=== PATIENT | female | born 1950 | race Caucasian/White ===

== ENCOUNTER 2022-08-11 22:16 | Inpatient (IN) ==
[~2022-08-11 22:16] MED LIST: RAPID SEQUENCE INDUCTION BAG ONE
[2022-08-11] MEDS ORDERED: STAT IV Infusion **Titration per Protocol STA ×2 (22:23→22:35)
[2022-08-11] MEDS ORDERED: PROPOFOL BOLUS FROM BAG IV PRN (22:23)
[2022-08-11] MEDS ORDERED: MAGNESIUM SULFATE / D5W 1 GM/100 ML BAG IV STA (22:31)
[2022-08-11] MEDS ORDERED: MAGNESIUM SULFATE 1GM / D5W BAG IV ONE (22:31)
--- NOTE | 2022-08-11 22:36 | Emergency Department Note ---
Impression & Plan Cardiopulmonary arrest with successful resuscitation ED Provider Note Name: AIDAN NEGORN Age: 71 Sex: F Arrives Via: Ambulance Informant: EMS, ED Provider: Travis Rowan MD Chief Complaint: Cardiopulmonary arrest Impression: As per impressions above Medical Decision Makin-year-old female with a history of hypertension, bipolar, LEATHA, GERD and prediabetes is following cardiac arrest. Patient with severe shortness of breath followed by arrest. Required cardioversion, epi x3 and amiodarone before ROSC. Intubated by me on arrival. Patient unresponsive GCS 3 with periodic agonal breathing. Initial blood pressure low, heart rate normal. Fluid recess continued. Initial EKG with prolonged QTc. Mag and bicarb were ordered. Blood pressure running low and thus Levophed ordered in addition to the propofol for sedation though not requiring very much of this. Chest x-ray with mildly deep ET tube pulled back 2 cm. No evidence of large pneumothorax or pneumonia appreciated. On arrival critical care at bedside. I discussed the importance of central access with family who agreed. NON LICENSED NUCLEAR EQUIPMENT OPERATOR of critical care team placed a right groin IV with good blood flow. Initial labs with elevated white blood cell count possibly due to reactive acuity. Troponin is also significantly elevated. This could just be due to the ACLS protocol. Other labs with mild LFT elevation thus the CT of the belly when doing other CTs. Initial EKG with a right bundle branch block and prolonged QTc. Repeat EKG a while later shows some nonspecific diffuse ST changes. And a third EKG done shows sinus bradycardia with a prolonged QTc but no findings of ST elevation I did obtain CT of the head, chest with IV contrast for angio, abdomen with IV contrast. These revealed bilateral rib fractures and small pneumothorax consistent with her CPR. There is no evidence of PE. The patient does have some findings of ischemia throughout her gut which I suspect is more secondary to her cardiopulmonary arrest as opposed to being a primary cause of all of this. I did discuss this with the family to make them aware of the findings and the concern for injury to the bowel. Given all of her other issues right now there would not be indication for emergent surgical evaluation measures her current stability is critical. She was empirically given Invanz for possible infection in the setting of acute respiratory failure elevated white blood cell count, though I think that septic shock is far less likely than cardiogenic shock at this time. The significantly elevated lactic acid is consistent with cardiopulmonary arrest. We did have multiple discussions regarding cooling this patient. Arrival a code Arctic had even been called. However given the uncertainty of the initial cause and then the significant electrolyte imbalance after discussion with CCM team plan will be to disposition to ICU first for determination of cooling. Prior Medical Record and Triage/Nursing Notes reviewed by Me External records reviewed including PCP visits. Extensive discussion with family regarding her history as well as proceeding events. Differentials: Cardiac ischemia, aortic dissection, pulmonary embolism, electrolyte abnormality, acidosis, tension pneumothorax, hypothermia, hypovolemia, intracranial event, cardiac tamponade, as well as other pathologies. Vital Signs: reviewed and remarkable for hypotension, hypoxia Interventions: Normal Saline bolus 1 L IV x2, Levophed IV, propofol IV, magnesium IV 2 g, bicarb amp, potassium 20 mEq IV, Invanz 2 g IV This is in addition to the 1 L normal saline bolus given by EMS prior to arrival between start 9:40p and 10:10 PM end. Labs:Reviewed and remarkable for extensive lab abnormalities. CBC, BMP, LFTs, lactate, troponin amongst others. Imagin view chest x-ray interpreted by me reveals intubated patient questionable rib fractures bilaterally. ET tube is a bit deep. CT imaging of the head informally interpreted by me reveals no acute findings. This was confirmed by radiology. CT imaging of the chest with angio as per radiology: Multiple rib fractures and a trace pneumothorax no PE appreciated CT imaging of the abdomen pelvis with IV contrast as per radiology: Pneumatosis consistent with possible ischemic injury EKG #3: As per my interpretation. Indication cardiac arrest. Normal sinus rhythm at 71 bpm with a right bundle branch block and a QTc of 556. Poor basel ine in the no ectopy nor overt ST elevation appreciated but there are diffuse ST abnormalities throughout. There are no previous EKGs for comparison. EKG #2:As per my interpretation. Indication cardiac arrest. Postresuscitation. Sinus bradycardia with a first-degree AV block at 51 bpm and a QTc of 565 and PAC noted. There is not acute ischemia appreciated. When comp ared to EKG from earlier you right bundle branch block has resolved and T wave abnormalities have normalized. Cardiac/Tele Monitoring: Cardiac Monitoring: An Order was placed for continuous cardiac monitoring. The monitor shows a rate of 55 with a sinus jeffy rhythm. Consults:Dr Elvin RAJAN Hospitalist. [facility]. Plan: Disposition:Hospitalization. Condition: Critical History of Present Illness: 71-year-old female arrives for evaluation following a cardiac arrest. Patient was at home with when she developed severe shortness of breath or difficulty breathing. He notes initially it started like a typical panic attack but rapidly worsened. Given severity 911 was called. On EMS arrival patient had collapsed and was unresponsive. She had no pulse. CPR was started, she received epinephrine 3 times, was electrocardioverted, received 150 mg IV amiodarone. EMS reports they were unable to intubate thus a LMA was in place. They note patient had been in a V-fib arrest which resolved with shocking. 1 L normal saline IV prior to arrival. Per family no recent travel, surgeries or any other recent illnesses or other complaints. No reported history of blood clots. No family history of early cardiac . No significant CAD in family that is aware of. Past History:Hypertension, bipolar/anxiety, obstructive sleep apnea, hypertension, pre-diabetes, GERD Home Medications: See Below Allergies: Penicillin, Codeine, Statins Vitals:Blood Pressure: 80/37, Pulse 82, RR 20, T 36.6C, O2 100% on Intubated Physical Exam: GENERAL: Unresponsive, GCS 3. Periodic agonal respirations EYES: No scleral icterus, fixed mid pupils. ENT: Mucous membranes moist, no nasal congestion. NECK: Trachea is midline, no masses, no swelling. RESPIRATORY: Equal chest rise with ventilation, clear bilaterally. CARDIOVASCULAR: RRR no murmurs GASTROINTESTINAL: Abdomen soft. Non-Distended. Bowel sounds. No masses appreciated. EXTREMITIES: Pulses all 4 NEUROLOGIC: Unresponsive, GCS 3. SKIN: Mild erythema on thighs/extremities. No rash, no jaundice. ED Course: Times/Reassessments: Management throughout time in ED along with repeat discussions with family keeping them abreast of findings. Post CAT scan able to get family and room with the patient and reviewing laboratory findings amongst other. Procedures: Endotracheal Intubation Indication: Respiratory Failure The patient was being bagged by respiratory with LMA. Suction, airway equipment, respiratory equipment, and appropriate personnel were prepared prior to the initiation of the procedure. A time out was taken. Patient GCS 3 non response thus intubated without RSI meds. The airway was easily visualized utilizing a #3 glidescope. Copious amount of green food like sputum noted in posterior airway. A 7.5 size ETT tube was placed atraumatically to 24 cm using standard technique. The cuff inflated without signs of malfunction. There were bilateral breath sounds, positive colormetric change, no gastric sounds, a good capnography waveform, and post procedure pulse oximetry was 100%. Post intubation sedation and paralysis was administered using propofol. There were no complications. Critical Care: I have personally spent 90 minutes of critical care time in the direct management of this patient. Acute cardiopulmonary arrest. This was a life/limb threatening event. This 90 minutes is in excess of all separately billable procedures. Travis Rowan MD Past Med/Surg History Medical History (Updated 08/12/22 @ 01:55 by Matthieu Oconnor MD) Bipolar 1 disorder Constipated Fatigue HTN (hypertension) Hyperlipemia IBS (irritable bowel syndrome) Migraine Reflux esophagitis Snoring Family History Father Hypertension Stroke Cancer Alcohol abuse Glaucoma Mother Alcohol abuse Grandmother (Maternal) Cancer Hypertension Social History Smoking Status: Unknown if ever smoked Hx Alcohol Use: Yes Alcohol type: hard liquor Alcohol Intake Frequency: 4 or More x per/Week marital status: Current Living Situation: Spouse Allergies Allergies Allergy/AdvReac Type Severity Reaction Status Date / Time Penicillins Allergy Intermediate Rash Verified 08/11/22 22:59 codeine AdvReac Intermediate Gastrointestinal Verified 08/11/22 22:59 Upset [id number] Reductase AdvReac Intermediate body aches Verified 08/11/22 22:59 Inhibitor Home Meds Home Medications Medication Instructions Recorded Confirmed esomeprazole magnesium 40 mg 40 mg PO DAILY 08/01/21 08/11/22 capsule,delayed release hydrochlorothiazide 25 mg tablet 25 mg PO DAILY 08/01/21 08/11/22 lamotrigine 150 mg tablet 150 mg PO HS 08/01/21 08/11/22 (Lamictal) lorazepam 1 mg tablet 1 mg PO BID PRN Anxiety 08/01/21 08/11/22 metoprolol succinate 200 mg 200 mg PO DAILY 08/01/21 08/11/22 capsule sprinkle, ext. release 24 hr paroxetine HCl 30 mg tablet 60 mg PO QAM 08/01/21 08/11/22 quetiapine 50 mg tablet 50 mg PO HS 08/01/21 08/11/22 ergocalciferol (vitamin D2) 1,250 50,000 unit PO WK 08/11/22 08/11/22 mcg (50,000 unit) capsule (Vitamin D2) olmesartan 5 mg tablet 5 mg PO HS 08/11/22 08/11/22 simvastatin 20 mg tablet 60 mg PO HS 08/11/22 08/11/22 Results & Data (ED) Vital Signs Vital Signs - 24 hr 08/11/22 22:23 08/11/22 22:20 08/11/22 22:25 Pulse Rate 82 77 Pulse Rate from SpO2 Sensor Respiratory Rate 25 H 23 12 Blood Pressure 80/37 L 80/37 L Blood Pressure Mean 51 51 Pulse Oximetry 100 90 Oxygen Delivery Method Ambu-Bag Fraction of Inspired Oxygen 100 Sepsis Recent Fever Within 48 Hours No Sepsis New/Unexplained Change in Mental Status No Sepsis Action Taken by Nursing No Action Required End-Tidal CO2 39 39 08/11/22 22:30 08/11/22 22:35 08/11/22 22:42 Pulse Rate 72 72 85 Pulse Rate from SpO2 Sensor Respiratory Rate 14 14 16 Blood Pressure 79/49 L 63/40 L 83/47 L Blood Pressure Mean 59 47 59 Pulse Oximetry 90 100 100 Oxygen Delivery Method Ambu-Bag Mechanical Vent Mechanical Vent Fraction of Inspired Oxygen Sepsis Recent Fever Within 48 Hours Sepsis New/Unexplained Change in Mental Status Sepsis Action Taken by Nursing End-Tidal CO2 34 32 28 08/11/22 22:46 08/11/22 22:50 08/11/22 22:55 Pulse Rate 80 80 87 Pulse Rate from SpO2 Sensor Respiratory Rate 16 16 15 Blood Pressure 68/52 L 77/37 L 67/50 L Blood Pressure Mean 57 50 55 Pulse Oximetry 100 100 100 Oxygen Delivery Method Mechanical Vent Mechanical Vent Mechanical Vent Fraction of Inspired Oxygen Sepsis Recent Fever Within 48 Hours Sepsis New/Unexplained Change in Mental Status Sepsis Action Taken by Nursing End-Tidal CO2 28 28 08/11/22 23:00 08/11/22 23:05 08/11/22 23:10 Pulse Rate 84 84 82 Pulse Rate from SpO2 Sensor Respiratory Rate 14 14 14 Blood Pressure 69/52 L 92/52 L 65/40 L Blood Pressure Mean 57 65 48 Pulse Oximetry 100 100 100 Oxygen Delivery Method Mechanical Vent Mechanical Vent Mechanical Vent Fraction of Inspired Oxygen Sepsis Recent Fever Within 48 Hours Sepsis New/Unexplained Change in Mental Status Sepsis Action Taken by Nursing End-Tidal CO2 32 36 36 08/11/22 23:15 08/11/22 23:20 08/11/22 23:26 Pulse Rate 70 66 68 Pulse Rate from SpO2 Sensor 70 Respiratory Rate 14 13 22 Blood Pressure 83/34 L 81/46 L 82/38 L Blood Pressure Mean 50 57 52 Pulse Oximetry 100 100 100 Oxygen Delivery Method Mechanical Vent Mechanical Vent Mechanical Vent Fraction of Inspired Oxygen Sepsis Recent Fever Within 48 Hours Sepsis New/Unexplained Change in Mental Status Sepsis Action Taken by Nursing End-Tidal CO2 43 44 41 08/12/22 00:08 08/12/22 00:10 08/12/22 00:15 Pulse Rate 51 L 52 L 52 L Pulse Rate from SpO2 Sensor Respiratory Rate 21 21 21 Blood Pressure 94/47 L 91/51 L 93/46 L Blood Pressure Mean 62 64 61 Pulse Oximetry 99 100 100 Oxygen Delivery Method Mechanical Vent Mechanical Vent Mechanical Vent Fraction of Inspired Oxygen Sepsis Recent Fever Within 48 Hours Sepsis New/Unexplained Change in Mental Status Sepsis Action Taken by Nursing End-Tidal CO2 42 40 40 08/12/22 00:20 08/12/22 00:25 08/12/22 00:30 Pulse Rate 50 L 49 L 49 L Pulse Rate from SpO2 Sensor Respiratory Rate 21 21 21 Blood Pressure 101/55 L 102/56 L 100/57 L Blood Pressure Mean 70 71 71 Pulse Oximetry 100 100 100 Oxygen Delivery Method Mechanical Vent Mechanical Vent Mechanical Vent Fraction of Inspired Oxygen Sepsis Recent Fever Within 48 Hours Sepsis New/Unexplained Change in Mental Status Sepsis Action Taken by Nursing End-Tidal CO2 45 43 36 08/12/22 00:35 08/12/22 00:40 08/12/22 00:45 Pulse Rate 49 L 49 L 48 L Pulse Rate from SpO2 Sensor Respiratory Rate 18 25 H 25 H Blood Pressure 99/58 L 102/58 L 99/57 L Blood Pressure Mean 71 72 71 Pulse Oximetry 100 100 100 Oxygen Delivery Method Mechanical Vent Mechanical Vent Mechanical Vent Fraction of Inspired Oxygen Sepsis Recent Fever Within 48 Hours Sepsis New/Unexplained Change in Mental Status Sepsis Action Taken by Nursing End-Tidal CO2 36 41 42 08/12/22 00:50 08/12/22 00:55 08/12/22 01:00 Pulse Rate 48 L 48 L 48 L Pulse Rate from SpO2 Sensor Respiratory Rate 19 18 20 Blood Pressure 109/60 110/62 117/61 Blood Pressure Mean 76 78 79 Pulse Oximetry 99 99 100 Oxygen Delivery Method Mechanical Vent Mechanical Vent Mechanical Vent Fraction of Inspired Oxygen Sepsis Recent Fever Within 48 Hours Sepsis New/Unexplained Change in Mental Status Sepsis Action Taken by Nursing End-Tidal CO2 42 42 43 Laboratory Data 08/11/22 22:28 08/11/22 22:28 Lab Results 08/11/22 08/11/22 08/11/22 Range/Units 22:27 22:28 22:28 WBC 23.62 H (4.8-10.8) K/ul RBC 4.50 (4.20-5.40) M/uL Hgb 12.9 (12.0-16.0) g/dl POC Hgb (12.0-16.0) g/dl Hct 40.0 (37.0-47.0) % POC Hct (37-47) % MCV 88.9 (80.0-100.0) fL MCH 28.7 (25.0-34.0) pg MCHC 32.3 (32.0-36.0) g/dL RDW Std Deviation 42.1 (36.4-46.3) fL RDW Coeff of Foster 12.9 (11.5-14.5) % Plt Count 341 (130-400) K/uL MPV 8.8 L (9.4-12.4) fL Immature Gran % (Auto) 8.0 % Neut % (Auto) 65.0 % Lymph % (Auto) 21.7 % [place] % (Auto) 3.3 % Eos % (Auto) 1.3 % Baso % (Auto) 0.7 % Neut # (Auto) 15.36 H (1.40-6.50) K/uL Lymph # (Auto) 5.13 H (1.2-3.4) K/uL [place] # (Auto) 0.77 H (0.11-0.59) K/uL Eos # (Auto) 0.31 (0-0.50) K/uL Baso # (Auto) 0.16 (0-0.2) K/uL Immature Gran # (Auto) 1.89 H (0.01-0.20) K/uL PT 11.4 (9.0-12.0) Seconds INR 1.1 (0.9-1.1) POC pH (7.35-7.45) POC pCO2 (35-46) mmHg POC pO2 (80-95) mmHg POC HCO3 (19-24) joslyn/L POC Base Excess (-9-1.8) joslyn/L POC ABG O2 Sat (90-95) % VBG pH (7.36-7.41) VBG pCO2 (38-50) mmHg VBG pO2 mmHg VBG HCO3 mmol/L VBG O2 Saturation % VBG Base Excess mEq/L POC Sodium (135-144) mmol/L Sodium (136-145) mmol/L POC Potassium (3.3-5.0) mmol/L Potassium (3.5-5.1) mmol/L POC Chloride (101-112) mmol/L Chloride (98-107) mmol/L Carbon Dioxide (21-32) mmol/L POC Total CO2 (24-31) mmol/L Anion Gap (3-11) POC Anion Gap (16-25) mmol/L POC BUN (7-18) mg/dl BUN (6-23) mg/dl Creatinine (0.6-1.2) mg/dl POC Creatinine (0.6-1.3) mg/dl Est Cr Clr Drug Dosing Est GFR ( Amer) ml/min Est GFR (Non-Af Amer) ml/min BUN/Creatinine Ratio (10-20) Glucose (70-99(Fasting)) mg/dl POC Glucose 238 H (70-99) mg/dl POC Glucose (other) (70-99) mg/dl Lactate (0.4-2.0) mmol/L Calcium (8.5-10.1) mg/dl POC Ioniz Calcium Bernice (1.12-1.32) mmol/l Magnesium (1.7-2.4) mg/dl Total Bilirubin (0.2-1.0) mg/dl Direct Bilirubin (0-0.2) mg/dl AST (13-39) U/L ALT (7-52) U/L Alkaline Phosphatase (34-104) U/L Troponin I High Sens (0-14) pg/ml Total Protein (6.0-8.3) gm/dl Albumin (3.4-5.0) gm/dl Lipase (11-82) U/L Procalcitonin (0-0.5) ng/ml Adenovirus (PCR) (NotDetected) B. pertussis DNA (PCR) (NotDetected) B.parapertussis DNA PCR (NotDetected) C. pneumoniae DNA (PCR) (NotDetected) Coronavirus OC43 (PCR) (NotDetected) Coronavirus HKU1 (PCR) (NotDetected) Coronavirus 229E (PCR) (NotDetected) SARS-CoV-2 (PCR) (NotDetected) Coronavirus NL63 (PCR) (NotDetected) Human Metapneumovir PCR (NotDetected) Influenza Type A (PCR) (NotDetected) Influenza Type B (PCR) (NotDetected) M. pneumoniae (PCR) (NotDetected) Parainfluenza 1 (PCR) (NotDetected) Parainfluenza 2 (PCR) (NotDetected) Parainfluenza 3 (PCR) (NotDetected) Parainfluenza 4 (PCR) (NotDetected) RSV (PCR) (NotDetected) Entero/Rhino (PCR) (NotDetected) 08/11/22 08/11/22 08/11/22 Range/Units 22:28 22:28 22:28 WBC (4.8-10.8) K/ul RBC (4.20-5.40) M/uL Hgb (12.0-16.0) g/dl POC Hgb (12.0-16.0) g/dl Hct (37.0-47.0) % POC Hct (37-47) % MCV (80.0-100.0) fL MCH (25.0-34.0) pg MCHC (32.0-36.0) g/dL RDW Std Deviation (36.4-46.3) fL RDW Coeff of Foster (11.5-14.5) % Plt Count (130-400) K/uL MPV (9.4-12.4) fL Immature Gran % (Auto) % Neut % (Auto) % Lymph % (Auto) % [place] % (Auto) % Eos % (Auto) % Baso % (Auto) % Neut # (Auto) (1.40-6.50) K/uL Lymph # (Auto) (1.2-3.4) K/uL [place] # (Auto) (0.11-0.59) K/uL Eos # (Auto) (0-0.50) K/uL Baso # (Auto) (0-0.2) K/uL Immature Gran # (Auto) (0.01-0.20) K/uL PT (9.0-12.0) Seconds INR (0.9-1.1) POC pH (7.35-7.45) POC pCO2 (35-46) mmHg POC pO2 (80-95) mmHg POC HCO3 (19-24) joslyn/L POC Base Excess (-9-1.8) joslyn/L POC ABG O2 Sat (90-95) % VBG pH < 7.00 L (7.36-7.41) VBG pCO2 79 H (38-50) mmHg VBG pO2 55 mmHg VBG HCO3 19 mmol/L VBG O2 Saturation 68.4 % VBG Base Excess -13.7 mEq/L POC Sodium (135-144) mmol/L Sodium 134 L (136-145) mmol/L POC Potassium (3.3-5.0) mmol/L Potassium 2.8 L (3.5-5.1) mmol/L POC Chloride (101-112) mmol/L Chloride 92 L (98-107) mmol/L Carbon Dioxide 19 L (21-32) mmol/L POC Total CO2 (24-31) mmol/L Anion Gap 23 H (3-11) POC Anion Gap (16-25) mmol/L POC BUN (7-18) mg/dl BUN 16 (6-23) mg/dl Creatinine 1.20 (0.6-1.2) mg/dl POC Creatinine (0.6-1.3) mg/dl Est Cr Clr Drug Dosing Not Reportable Est GFR ( Amer) 53.0 ml/min Est GFR (Non-Af Amer) 45.8 ml/min BUN/Creatinine Ratio 13.3 (10-20) Glucose 229 H (70-99(Fasting)) mg/dl POC Glucose (70-99) mg/dl POC Glucose (other) (70-99) mg/dl Lactate (0.4-2.0) mmol/L Calcium 8.6 (8.5-10.1) mg/dl POC Ioniz Calcium Bernice (1.12-1.32) mmol/l Magnesium 2.1 (1.7-2.4) mg/dl Total Bilirubin 0.4 (0.2-1.0) mg/dl Direct Bilirubin 0.0 (0-0.2) mg/dl AST 171 H (13-39) U/L ALT 142 H (7-52) U/L Alkaline Phosphatase 113 H (34-104) U/L Troponin I High Sens 119.8 H* (0-14) pg/ml Total Protein 5.9 L (6.0-8.3) gm/dl Albumin 3.5 (3.4-5.0) gm/dl Lipase 46 (11-82) U/L Procalcitonin 0.14 (0-0.5) ng/ml Adenovirus (PCR) (NotDetected) B. pertussis DNA (PCR) (NotDetected) B.parapertussis DNA PCR (NotDetected) C. pneumoniae DNA (PCR) (NotDetected) Coronavirus OC43 (PCR) (NotDetected) Coronavirus HKU1 (PCR) (NotDetected) Coronavirus 229E (PCR) (NotDetected) SARS-CoV-2 (PCR) (NotDetected) Coronavirus NL63 (PCR) (NotDetected) Human Metapneumovir PCR (NotDetected) Influenza Type A (PCR) (NotDetected) Influenza Type B (PCR) (NotDetected) M. pneumoniae (PCR) (NotDetected) Parainfluenza 1 (PCR) (NotDetected) Parainfluenza 2 (PCR) (NotDetected) Parainfluenza 3 (PCR) (NotDetected) Parainfluenza 4 (PCR) (NotDetected) RSV (PCR) (NotDetected) Entero/Rhino (PCR) (NotDetected) 08/11/22 08/11/22 08/11/22 Range/Units 22:28 22:28 22:36 WBC (4.8-10.8) K/ul RBC (4.20-5.40) M/uL Hgb (12.0-16.0) g/dl POC Hgb 13.6 13.3 (12.0-16.0) g/dl Hct (37.0-47.0) % POC Hct 40 39 (37-47) % MCV (80.0-100.0) fL MCH (25.0-34.0) pg MCHC (32.0-36.0) g/dL RDW Std Deviation (36.4-46.3) fL RDW Coeff of Foster (11.5-14.5) % Plt Count (130-400) K/uL MPV (9.4-12.4) fL Immature Gran % (Auto) % Neut % (Auto) % Lymph % (Auto) % [place] % (Auto) % Eos % (Auto) % Baso % (Auto) % Neut # (Auto) (1.40-6.50) K/uL Lymph # (Auto) (1.2-3.4) K/uL [place] # (Auto) (0.11-0.59) K/uL Eos # (Auto) (0-0.50) K/uL Baso # (Auto) (0-0.2) K/uL Immature Gran # (Auto) (0.01-0.20) K/uL PT (9.0-12.0) Seconds INR (0.9-1.1) POC pH 7.15 L* (7.35-7.45) POC pCO2 50 H (35-46) mmHg POC pO2 > 420 H (80-95) mmHg POC HCO3 18 L (19-24) joslyn/L POC Base Excess -11.0 L (-9-1.8) joslyn/L POC ABG O2 Sat 100.0 H (90-95) % VBG pH (7.36-7.41) VBG pCO2 (38-50) mmHg VBG pO2 mmHg VBG HCO3 mmol/L VBG O2 Saturation % VBG Base Excess mEq/L POC Sodium 133 L 131 L (135-144) mmol/L Sodium (136-145) mmol/L POC Potassium 2.8 L 3.0 L (3.3-5.0) mmol/L Potassium (3.5-5.1) mmol/L POC Chloride 93 L (101-112) mmol/L Chloride (98-107) mmol/L Carbon Dioxide (21-32) mmol/L POC Total CO2 24 19 L (24-31) mmol/L Anion Gap (3-11) POC Anion Gap 20.0 (16-25) mmol/L POC BUN 15 (7-18) mg/dl BUN (6-23) mg/dl Creatinine (0.6-1.2) mg/dl POC Creatinine 1.2 (0.6-1.3) mg/dl Est Cr Clr Drug Dosing Est GFR ( Amer) ml/min Est GFR (Non-Af Amer) ml/min BUN/Creatinine Ratio (10-20) Glucose (70-99(Fasting)) mg/dl POC Glucose (70-99) mg/dl POC Glucose (other) 227 H (70-99) mg/dl Lactate 9.6 H* (0.4-2.0) mmol/L Calcium (8.5-10.1) mg/dl POC Ioniz Calcium Bernice 1.10 L (1.12-1.32) mmol/l Magnesium (1.7-2.4) mg/dl Total Bilirubin (0.2-1.0) mg/dl Direct Bilirubin (0-0.2) mg/dl AST (13-39) U/L ALT (7-52) U/L Alkaline Phosphatase (34-104) U/L Troponin I High Sens (0-14) pg/ml Total Protein (6.0-8.3) gm/dl Albumin (3.4-5.0) gm/dl Lipase (11-82) U/L Procalcitonin (0-0.5) ng/ml Adenovirus (PCR) (NotDetected) B. pertussis DNA (PCR) (NotDetected) B.parapertussis DNA PCR (NotDetected) C. pneumoniae DNA (PCR) (NotDetected) Coronavirus OC43 (PCR) (NotDetected) Coronavirus HKU1 (PCR) (NotDetected) Coronavirus 229E (PCR) (NotDetected) SARS-CoV-2 (PCR) (NotDetected) Coronavirus NL63 (PCR) (NotDetected) Human Metapneumovir PCR (NotDetected) Influenza Type A (PCR) (NotDetected) Influenza Type B (PCR) (NotDetected) M. pneumoniae (PCR) (NotDetected) Parainfluenza 1 (PCR) (NotDetected) Parainfluenza 2 (PCR) (NotDetected) Parainfluenza 3 (PCR) (NotDetected) Parainfluenza 4 (PCR) (NotDetected) RSV (PCR) (NotDetected) Entero/Rhino (PCR) (NotDetected) 08/12/22 08/12/22 Range/Units 00:32 00:34 WBC (4.8-10.8) K/ul RBC (4.20-5.40) M/uL Hgb (12.0-16.0) g/dl POC Hgb (12.0-16.0) g/dl Hct (37.0-47.0) % POC Hct (37-47) % MCV (80.0-100.0) fL MCH (25.0-34.0) pg MCHC (32.0-36.0) g/dL RDW Std Deviation (36.4-46.3) fL RDW Coeff of Foster (11.5-14.5) % Plt Count (130-400) K/uL MPV (9.4-12.4) fL Immature Gran % (Auto) % Neut % (Auto) % Lymph % (Auto) % [place] % (Auto) % Eos % (Auto) % Baso % (Auto) % Neut # (Auto) (1.40-6.50) K/uL Lymph # (Auto) (1.2-3.4) K/uL [place] # (Auto) (0.11-0.59) K/uL Eos # (Auto) (0-0.50) K/uL Baso # (Auto) (0-0.2) K/uL Immature Gran # (Auto) (0.01-0.20) K/uL PT (9.0-12.0) Seconds INR (0.9-1.1) POC pH (7.35-7.45) POC pCO2 (35-46) mmHg POC pO2 (80-95) mmHg POC HCO3 (19-24) joslyn/L POC Base Excess (-9-1.8) joslyn/L POC ABG O2 Sat (90-95) % VBG pH (7.36-7.41) VBG pCO2 (38-50) mmHg VBG pO2 mmHg VBG HCO3 mmol/L VBG O2 Saturation % VBG Base Excess mEq/L POC Sodium (135-144) mmol/L Sodium (136-145) mmol/L POC Potassium (3.3-5.0) mmol/L Potassium (3.5-5.1) mmol/L POC Chloride (101-112) mmol/L Chloride (98-107) mmol/L Carbon Dioxide (21-32) mmol/L POC Total CO2 (24-31) mmol/L Anion Gap (3-11) POC Anion Gap (16-25) mmol/L POC BUN (7-18) mg/dl BUN (6-23) mg/dl Creatinine (0.6-1.2) mg/dl POC Creatinine (0.6-1.3) mg/dl Est Cr Clr Drug Dosing Est GFR ( Amer) ml/min Est GFR (Non-Af Amer) ml/min BUN/Creatinine Ratio (10-20) Glucose (70-99(Fasting)) mg/dl POC Glucose (70-99) mg/dl POC Glucose (other) (70-99) mg/dl Lactate 7.3 H* (0.4-2.0) mmol/L Calcium (8.5-10.1) mg/dl POC Ioniz Calcium Bernice (1.12-1.32) mmol/l Magnesium (1.7-2.4) mg/dl Total Bilirubin (0.2-1.0) mg/dl Direct Bilirubin (0-0.2) mg/dl AST (13-39) U/L ALT (7-52) U/L Alkaline Phosphatase (34-104) U/L Troponin I High Sens (0-14) pg/ml Total Protein (6.0-8.3) gm/dl Albumin (3.4-5.0) gm/dl Lipase (11-82) U/L Procalcitonin (0-0.5) ng/ml Adenovirus (PCR) Not Detected (NotDetected) B. pertussis DNA (PCR) Not Detected (NotDetected) B.parapertussis DNA PCR Not Detected (NotDetected) C. pneumoniae DNA (PCR) Not Detected (NotDetected) Coronavirus OC43 (PCR) Not Detected (NotDetected) Coronavirus HKU1 (PCR) Not Detected (NotDetected) Coronavirus 229E (PCR) Not Detected (NotDetected) SARS-CoV-2 (PCR) Not Detected (NotDetected) Coronavirus NL63 (PCR) Not Detected (NotDetected) Human Metapneumovir PCR Not Detected (NotDetected) Influenza Type A (PCR) Not Detected (NotDetected) Influenza Type B (PCR) Not Detected (NotDetected) M. pneumoniae (PCR) Not Detected (NotDetected) Parainfluenza 1 (PCR) Not Detected (NotDetected) Parainfluenza 2 (PCR) Not Detected (NotDetected) Parainfluenza 3 (PCR) Not Detected (NotDetected) Parainfluenza 4 (PCR) Not Detected (NotDetected) RSV (PCR) Not Detected (NotDetected) Entero/Rhino (PCR) Not Detected (NotDetected) Administered Medications Propofol (Diprivan) 1,000 mg in 100 mls @ 12.216 mls/hr IV .Q8H12M JACQUELINE; Protocol Stop: 08/14/22 22:29 Last Titration: 08/11/22 23:36 Dose: 20 mcg/kg/min, 12.2 mls/hr Documented By: Titration: 08/11/22 22:53 Dose: 15 mcg/kg/min, 9.2 mls/hr Documented By: Admin: 08/11/22 22:50 Dose: 10 mcg/kg/min, 6.1 mls/hr Documented By: AN Co-signed By: SURESH Norepinephrine Bitartrate (Levophed/D5w) 4 mg in 250 mls @ 19.088 mls/hr IV .Q13H6M [facility]; Protocol Stop: 09/10/22 22:44 Last Admin: 08/11/22 22:48 Dose: 0.05 mcg/kg/min, 19.1 mls/hr Documented By: AN Co-signed By: SURESH Discontinued Medications Magnesium Sulfate/Dextrose (Magnesium Sulfate / D5w) 1 gm in 100 mls @ 100 mls/hr IV NOW STA Stop: 08/11/22 23:30 Last Infusion: 08/12/22 00:09 Dose: 0 mls/hr Documented By: Admin: 08/11/22 23:09 Dose: 100 mls/hr Documented By: DL Sodium Chloride (Nss 1000ml) 1,000 mls @ 999 mls/hr IV .Q1H1M ONE Stop: 08/12/22 00:07 Last Infusion: 08/12/22 00:08 Dose: 0 mls/hr Documented By: Admin: 08/11/22 23:07 Dose: 999 mls/hr Documented By: DL Sodium Chloride (Nss 1000ml) 1,000 mls @ 999 mls/hr IV .Q1H1M ONE Stop: 08/12/22 00:11 Last Infusion: 08/12/22 00:12 Dose: 0 mls/hr Documented By: Admin: 08/11/22 23:11 Dose: 999 mls/hr Documented By: DL Ertapenem (Invanz) 10 mls @ 2 mls/min IV NOW ONE Stop: 08/11/22 23:27 Last Admin: 08/12/22 01:28 Dose: 2 mls/min Documented By: DL Potassium Chloride (K Ismael / Wtr) 20 meq in 100 mls @ 50 mls/hr IV ONE ONE; Protocol Stop: 08/12/22 01:23 Last Admin: 08/12/22 01:31 Dose: 50 mls/hr Documented By: DL Magnesium Sulfate/Dextrose (Magnesium Sulfate / D5w) 1 gm in 100 mls @ 100 mls/hr IV NOW STA Stop: 08/12/22 01:23 Last Admin: 08/12/22 00:54 Dose: Not Given Documented By: DL Magnesium Sulfate/Dextrose (Magnesium Sulfate 1gm / D5w Bag) Confirm Administered Dose 1 gm IV .STK-MED ONE Stop: 08/11/22 22:32 Last Admin: 08/11/22 22:46 Dose: Not Given Documented By: AN Miscellaneous (Rapid Sequence Induction Bag) Confirm Administered Dose 1 each .ROUTE .STK-MED ONE Stop: 08/11/22 22:09 Last Admin: 08/11/22 23:09 Dose: Not Given Documented By: DL Miscellaneous (Stat Iv Infusion Titration Per Protocol) 1 each N/A NOW STA Stop: 08/11/22 22:24 Last Admin: 08/11/22 22:51 Dose: 1 each Documented By: AN Miscellaneous (Stat Iv Infusion Titration Per Protocol) 1 each N/A NOW STA Stop: 08/11/22 22:36 Last Admin: 08/11/22 22:51 Dose: 1 each Documented By: AN Propofol (Propofol Iv Emulsion 10 Mg/Ml 100 Ml Vial) Confirm Administered Dose 1,000 mg IV .STK-MED ONE Stop: 08/11/22 22:30 Last Admin: 08/11/22 22:50 Dose: Not Given Documented By: AN Sodium Bicarbonate (Sodium Bicarb 8.4% Inj 50 Meq/50 Ml Syr) 50 meq IV NOW STA Stop: 08/11/22 22:56 Last Admin: 08/11/22 23:01 Dose: 50 meq Documented By: DL Sodium Bicarbonate (Sodium Bicarb 8.4% Inj 50 Meq/50 Ml Syr) 50 meq IV NOW STA Stop: 08/12/22 00:24 Last Admin: 08/12/22 00:54 Dose: Not Given Documented By: SHERICE Imaging Data Radiologist's Impression: Chest X-Ray 08/11/22 22:23 SINGLE VIEW CHEST CLINICAL HISTORY: Cardiac arrest. FINDINGS: An AP, portable, supine chest radiograph is obtained. No prior studies are available for comparison at the time of dictation. An endotracheal tube has been placed. The tip approaches the right mainstem bronchus. The heart is enlarged. The pulmonary vasculature is noncongested. Nonspecific interstitial thickening is likely chronic. There is mild elevation of the right hemidiaphragm. No airspace consolidation or large pleural effusion is identified. No pneumothorax is seen. The skeletal structures are osteopenic. There are acute appearing anterior rib fractures. IMPRESSION: 1. An endotracheal tube has been placed. The tip approaches the right mainstem bronchus, and this should be pulled back 1 to 2 cm. 2. Cardiomegaly with no acute cardiopulmonary abnormality identified. 2. There are acute appearing bilateral anterior rib fractures. ACT 112: Negative or not required by law. Electronically signed by: Nahum Jean M.D. 08/11/2022 10:42 PM Chest CTA 08/11/22 22:43 CT ANGIOGRAM OF THE CHEST; CT SCAN OF THE ABDOMEN AND PELVIS WITH IV CONTRAST CLINICAL HISTORY: Cardiac arrest. COMPARISON STUDY: Chest x-ray dated 08/11/2022. TECHNIQUE: Following the IV administration of 114 of Optiray 320, CT angiogram of the chest is performed from the upper abdomen to the thoracic inlet utilizing the pulmonary embolus protocol. Images are reviewed in the axial, sagittal, coronal planes. 3-D MIPS images are created and assessed. Subsequently, CT scan of the abdomen and pelvis was performed from the lung bases to the proximal femora. Images are reviewed in the axial, sagittal, and coronal planes. IV contrast was administered without complication. A dose lowering technique was utilized adhering to the principles of ALARA. The examinations are compromised by motion artifact, as well as by streak artifact from the arms which could not be elevated above the chest or abdomen. CT DOSE: 2876.72 mGy.cm FINDINGS: CHEST: Thyroid: Imaged portions of the thyroid gland are normal in size and attenuation. Thoracic aorta: There is atherosclerotic calcification of the thoracic aorta, which is normal in caliber and demonstrates standard 3-vessel arch anatomy. No dissection is seen. Pulmonary vasculature: The main pulmonary arteries appear dilated suggesting pulmonary artery hypertension. There are no filling defects identified in the main, lobar, or segmental pulmonary arteries to indicate pulmonary embolus. Heart: The heart is enlarged and without pericardial effusion. There are coronary artery calcifications. Lungs and pleural spaces: An endotracheal tube is in place. The tip terminates above the hillary. Secretions are noted in the trachea. There is trace right anterior pneumothorax seen on image #136. There are also tiny foci of extrapleural gas on the right. No left-sided pneumothorax is seen. Intralobular septal thickening suggests fluid overload/congestive failure. No pleural effusion is identified. Airspace opacities in the right upper lobe likely represent atelectasis. There is an 8 mm right middle lobe pulmonary nodule seen on axial image #152. A 4 mm left lower lobe pulmonary nodule is seen on image #160. Diffuse peribronchial thickening is observed. Mediastinum: There is no mediastinal hematoma or lymphadenopathy. Robyn: Clear. Axillae: There is no axillary lymphadenopathy. Bony thorax: The skeletal structures are osteopenic. No lytic or blastic lesions are identified. There are acute right anterior 2nd through 8th rib fractures. The 6th rib fracture is comminuted and the 7th rib fracture is mildly displaced.. There are acute left anterior 3rd through 8th rib fractures. The 6th rib fracture is displaced. No sternal fracture is seen. There is a moderate chronic-appearing superior endplate compression deformity of T12. ABDOMEN AND PELVIS: Liver: The contrast-enhanced liver is normal in size, contour, and attenuation. There is no intrahepatic biliary ductal dilatation. The hepatic veins and portal veins are patent. There is portal venous gas seen throughout the left lobe. Gallbladder: Unremarkable. Spleen: Normal in size and attenuation. Pancreas: Unremarkable. Adrenal glands: Unremarkable. Kidneys: The contrast enhanced kidneys demonstrate cortical atrophy and are without hydronephrosis. The kidneys enhance symmetrically. A 13 mm cyst is noted on the right. Abdominal vasculature: The abdominal aorta is normal in course and caliber not ing moderate to advanced atherosclerotic calcification. A right femoral central venous catheter is in place. The mesenteric vessels are patent. Stomach and bowel: A small hiatal hernia is noted, with infiltration seen around the gastroesophageal junction. There is pneumatosis intestinalis of the cecum and ascending colon with adjacent mesenteric venous gas. Mild wall thickening and mucosal hyperemia is suggested involving the left colon with faint surrounding infiltration. There is also mild wall thickening and hyperemia seen throughout the small bowel loops. No bowel obstruction is seen. The appendix is well-visualized and normal. Peritoneum: No intraperitoneal free air is seen below the diaphragm. There is no abdominal ascites. There is a fat-containing umbilical hernia. Lymphadenopathy: None. Pelvic viscera: The bladder is decompressed and a Serrato catheter and not well evaluated. The uterus and adnexa are normal as imaged. There is a fat-containing left groin hernia. Skeletal structures: The skeletal structures are osteopenic. There is mild lumbosacral spondylosis. Lumbosacral spine, bony pelvis, and proximal femora appear intact. No lytic or blastic lesions are seen. Sclerotic change is noted in the pubic symphysis. IMPRESSION: 1. There is no evidence of pulmonary embolus in the main, lobar, or segmental pulmonary arteries. 2. Cardiomegaly with evidence of fluid overload/congestive change. 3. There are numerous acute bilateral anterior rib fractures as above, a few of which are comminuted and displaced. 4. There is trace right anterior pneumothorax. 5. Airspace opacities in the right upper lobe likely represent atelectasis. 6. There is evidence of a nonspecific colitis of the left colon which may be ischemic. 7. There is pneumatosis intestinalis of the cecum and ascending colon, with concomitant mesenteric venous and portal venous gas. Ischemic bowel is not excluded. 8. Mild wall thickening and mucosal hyperemia is also suggested involving small bowel loops. This may be related to hypovolemia/hypotension. 9. No intraperitoneal free air is identified. 10. There is nonspecific infiltration identified around the gastroesophageal j unction. 11 There are at least 2 pulmonary nodules which measure up to 8 mm. These can be followed as per the Fleischner criteria. See below. 12. Additional findings as above. Please refer to below summary of Fleischner criteria recommendations for follow- up of incidental CT nodules (Alfredo Resendiz, Guidelines for management of small pulmonary nodules detected on CT scans: A statement from the Fleischner Society, Radiology 237: [phone].) SOLID NODULES Solitary nodule size: <6 mm * low risk patients: no follow-up needed * high risk patients: optional CT at 12 months Solitary nodule size: 6-8 mm * low risk patients: follow-up at 6-12 months, then consider further follow-up at 18-24 months * high risk patients: initial follow-up CT at 6-12 months and then at 18-24 months if no change Solitary nodule size: >8 mm * either low or high risk patients - consider follow-up CT at 3 months, and/or CT-PET, and/or biopsy Multiple nodules size: <6 mm * low risk patients: no routine follow-up * high risk patients: optional CT at 12 months Multiple nodules size: 6-8 mm * low risk patients: follow-up at 3-6 months, then consider further follow-up at 18-24 months * high risk patients: follow-up at 3-6 months, then at 18-24 months if no change Multiple nodules size: >8 mm * low risk patients: follow-up at 3-6 months, then consider further follow-up at 18-24 months * high risk patients: follow-up at 3-6 months, then at 18-24 months if no change Note: newly detected indeterminate nodule in persons 35 years of age or older. * low risk patients: minimal or absent history of smoking and/or other known risk factors * high risk patients: history of smoking or of other known risk factors (e.g. first degree relative with lung cancer, or exposure to asbestos, radon, uranium) * if a nodule up to 8 mm is partly solid or is ground glass further follow-up is required after 24 months to exclude possible slow growing adenocarcinoma (FARZAD) SUBSOLID NODULES Solitary pure ground-glass nodule * nodule size <6 mm - no CT follow-up required * nodule size >=6 mm - follow-up CT at 6-12 months, then every 2 years until 5 years Solitary part-solid nodule * nodule size <6 mm - no CT follow-up required * nodule size >=6 mm - follow-up CT at 3-6 months. If unchanged, and solid component remains <6 mm, then annual follow-up for 5 years Multiple subsolid nodules * nodule size <6 mm - follow-up CT at 3-6 months, consider further follow-up at 2 and 4 years if stable * nodule size >=6 mm - follow-up CT at 3-6 months, subsequent management based on the most suspicious nodule(s) ACT 112: Negative or not required by law. Electronically signed by: Nahum Jean M.D. 08/12/2022 12:[address] 08/11/22 22:43 CT SCAN OF THE BRAIN WITHOUT IV CONTRAST CLINICAL HISTORY: Cardiac arrest. COMPARISON STUDY: No priors. TECHNIQUE: Unenhanced axial CT scan of the brain is performed from the vertex to the skull base. A dose lowering technique was utilized adhering to the principles of ALARA. FINDINGS: An endotracheal tube is noted on the mechanical detailer tomogram. Brain parenchyma: There is age-related involutional change noting mild to moderate subcortical and periventricular microangiopathic disease. There is no hemorrhage, mass effect, or evidence of acute territorial ischemia by CT criteria. Luna-white matter differentiation is preserved. No extra-axial fluid collection is seen. Ventricles, sulci, cisterns: Prominent secondary to involutional change. Intracranial vasculature: There is atherosclerotic calcification of the cavernous carotid and vertebral arteries. Calvarium: Unremarkable. Sinuses and mastoids: There is complete opacification of the left maxillary antrum, left ethmoid sinuses, the frontal sinus, and the left sphenoid sinuses. Thickening and sclerosis of the left sinus stovall indicates chronicity. Mild mucosal thickening is noted in the right maxillary antrum, and there is mild mucosal thickening within the right frontal, sphenoidal, and ethmoid sinuses. The mastoid air cells are well pneumatized. Secretions fill the nasopharynx. Orbits: The bony orbits are grossly intact. There are bilateral ocular lens implants. IMPRESSION: 1. There is no hemorrhage, mass effect, or evidence of acute territorial ischemia by CT criteria. 2. Pansinus disease as above. ACT 112: Negative or not required by law. Electronically signed by: Nahum Jean M.D. 08/12/2022 12:07 AM Abdomen/Pelvis CT 08/11/22 23:11 CT ANGIOGRAM OF THE CHEST; CT SCAN OF THE ABDOMEN AND PELVIS WITH IV CONTRAST CLINICAL HISTORY: Cardiac arrest. COMPARISON STUDY: Chest x-ray dated 08/11/2022. TECHNIQUE: Following the IV administration of 114 of Optiray 320, CT angiogram of the chest is performed from the upper abdomen to the thoracic inlet utilizing the pulmonary embolus protocol. Images are reviewed in the axial, sagittal, coronal planes. 3-D MIPS images are created and assessed. Subsequently, CT scan of the abdomen and pelvis was performed from the lung bases to the proximal femora. Images are reviewed in the axial, sagittal, and coronal planes. IV contrast was administered without complication. A dose lowering technique was utilized adhering to the principles of ALARA. The examinations are compromised by motion artifact, as well as by streak artifact from the arms which could not be elevated above the chest or abdomen. CT DOSE: 2876.72 mGy.cm FINDINGS: CHEST: Thyroid: Imaged portions of the thyroid gland are normal in size and a ttenuation. Thoracic aorta: There is atherosclerotic calcification of the thoracic aorta, which is normal in caliber and demonstrates standard 3-vessel arch anatomy. No dissection is seen. Pulmonary vasculature: The main pulmonary arteries appear dilated suggesting pulmonary artery hypertension. There are no filling defects identified in the main, lobar, or segmental pulmonary arteries to indicate pulmonary embolus. Heart: The heart is enlarged and without pericardial effusion. There are coronary artery calcifications. Lungs and pleural spaces: An endotracheal tube is in place. The tip terminates above the hillary. Secretions are noted in the trachea. There is trace right anterior pneumothorax seen on image #136. There are also tiny foci of extrapleural gas on the right. No left-sided pneumothorax is seen. Intralobular septal thickening suggests fluid overload/congestive failure. No pleural effusion is identified. Airspace opacities in the right upper lobe likely represent atelectasis. There is an 8 mm right middle lobe pulmonary nodule seen on axial image #152. A 4 mm left lower lobe pulmonary nodule is seen on image #160. Diffuse peribronchial thickening is observed. Mediastinum: There is no mediastinal hematoma or lymphadenopathy. Robyn: Clear. Axillae: There is no axillary lymphadenopathy. Bony thorax: The skeletal structures are osteopenic. No lytic or blastic lesions are identified. There are acute right anterior 2nd through 8th rib fractures. The 6th rib fracture is comminuted and the 7th rib fracture is mildly displaced.. There are acute left anterior 3rd through 8th rib fractures. The 6th rib fracture is displaced. No sternal fracture is seen. There is a moderate chronic-appearing superior endplate compression deformity of T12. ABDOMEN AND PELVIS: Liver: The contrast-enhanced liver is normal in size, contour, and attenuation. There is no intrahepatic biliary ductal dilatation. The hepatic veins and portal veins are patent. There is portal venous gas seen throughout the left lobe. Gallbladder: Unremarkable. Spleen: Normal in size and attenuation. Pancreas: Unremarkable. Adrenal glands: Unremarkable. Kidneys: The contrast enhanced kidneys demonstrate cortical atrophy and are without hydronephrosis. The kidneys enhance symmetrically. A 13 mm cyst is noted on the right. Abdominal vasculature: The abdominal aorta is normal in course and caliber noting moderate to advanced atherosclerotic calcification. A right femoral central venous catheter is in place. The mesenteric vessels are patent. Stomach and bowel: A small hiatal hernia is noted, with infiltration seen around the gastroesophageal junction. There is pneumatosis intestinalis of the cecum and ascending colon with adjacent mesenteric venous gas. Mild wall thickening and mucosal hyperemia is suggested involving the left colon with faint surrounding infiltration. There is also mild wall thickening and hyperemia seen throughout the small bowel loops. No bowel obstruction is seen. The appendix is well-visualized and normal. Peritoneum: No intraperitoneal free air is seen below the diaphragm. There is no abdominal ascites. There is a fat-containing umbilical hernia. Lymphadenopathy: None. Pelvic viscera: The bladder is decompressed and a Serrato catheter and not well evaluated. The uterus and adnexa are normal as imaged. There is a fat-containing left groin hernia. Skeletal structures: The skeletal structures are osteopenic. There is mild lumbosacral spondylosis. Lumbosacral spine, bony pelvis, and proximal femora appear intact. No lytic or blastic lesions are seen. Sclerotic change is noted in the pubic symphysis. IMPRESSION: 1. There is no evidence of pulmonary embolus in the main, lobar, or segmental pulmonary arteries. 2. Cardiomegaly with evidence of fluid overload/congestive change. 3. There are numerous acute bilateral anterior rib fractures as above, a few of which are comminuted and displaced. 4. There is trace right anterior pneumothorax. 5. Airspace opacities in the right upper lobe likely represent atelectasis. 6. There is evidence of a nonspecific colitis of the left colon which may be ischemic. 7. There is pneumatosis intestinalis of the cecum and ascending colon, with concomitant mesenteric venous and portal venous gas. Ischemic bowel is not excluded. 8. Mild wall thickening and mucosal hyperemia is also suggested involving small bowel loops. This may be related to hypovolemia/hypotension. 9. No intraperitoneal free air is identified. 10. There is nonspecific infiltration identified around the gastroesophageal junction. 11 There are at least 2 pulmonary nodules which measure up to 8 mm. These can be followed as per the Fleischner criteria. See below. 12. Additional findings as above. Please refer to below summary of Fleischner criteria recommendations for follow- up of incidental CT nodules (Alfredo Resendiz, Guidelines for management of small pulmonary nodules detected on CT scans: A statement from the Fleischner Society, Radiology 237: [phone].) SOLID NODULES Solitary nodule size: <6 mm * low risk patients: no follow-up needed * high risk patients: optional CT at 12 months Solitary nodule size: 6-8 mm * low risk patients: follow-up at 6-12 months, then consider further follow-up at 18-24 months * high risk patients: initial follow-up CT at 6-12 months and then at 18-24 months if no change Solitary nodule size: >8 mm * either low or high risk patients - consider follow-up CT at 3 months, and/or CT-PET, and/or biopsy Multiple nodules size: <6 mm * low risk patients: no routine follow-up * high risk patients: optional CT at 12 months Multiple nodules size: 6-8 mm * low risk patients: follow-up at 3-6 months, then consider further follow-up at 18-24 months * high risk patients: follow-up at 3-6 months, then at 18-24 months if no change Multiple nodules size: >8 mm * low risk patients: follow-up at 3-6 months, then consider further follow-up at 18-24 months * high risk patients: follow-up at 3-6 months, then at 18-24 months if no change Note: newly detected indeterminate nodule in persons 35 years of age or older. * low risk patients: minimal or absent history of smoking and/or other known risk factors * high risk patients: history of smoking or of other known risk factors (e.g. first degree relative with lung cancer, or exposure to asbestos, radon, uranium) * if a nodule up to 8 mm is partly solid or is ground glass further follow-up is required after 24 months to exclude possible slow growing adenocarcinoma (FARZAD) SUBSOLID NODULES Solitary pure ground-glass nodule * nodule size <6 mm - no CT follow-up required * nodule size >=6 mm - follow-up CT at 6-12 months, then every 2 years until 5 years Solitary part-solid nodule * nodule size <6 mm - no CT follow-up required * nodule size >=6 mm - follow-up CT at 3-6 months. If unchanged, and solid component remains <6 mm, then annual follow-up for 5 years Multiple subsolid nodules * nodule size <6 mm - follow-up CT at 3-6 months, consider further follow-up at 2 and 4 years if stable * nodule size >=6 mm - follow-up CT at 3-6 months, subsequent management based on the most suspicious nodule(s) ACT 112: Negative or not required by law. Electronically signed by: Nahum Jean M.D. 08/12/2022 12:43 AM Discharge Plan Visit Data Chief Complaint: Respiratory Arrest Stated Complaint: POST CARDIAC ARREST ED Provider: Travis Rowan Discharge Problem: Cardiopulmonary arrest with successful resuscitation Forms Stand Alone Forms: [facility] [employer] Prescriptions Prescriptions: No Action esomeprazole magnesium 40 mg capsule,delayed release(DR/EC) 40 mg PO DAILY hydrochlorothiazide 25 mg tablet 25 mg PO DAILY lamotrigine [Lamictal] 150 mg tablet 150 mg PO HS lorazepam 1 mg tablet 1 mg PO BID PRN (Reason: Anxiety) metoprolol succinate 200 mg capsule,sprinkle,ER 24hr 200 mg PO DAILY paroxetine HCl 30 mg tablet 60 mg PO QAM quetiapine 50 mg tablet 50 mg PO HS simvastatin 20 mg tablet 60 mg PO HS ergocalciferol (vitamin D2) [Vitamin D2] 1,250 mcg (50,000 unit) capsule 50,000 unit PO WK olmesartan 5 mg tablet 5 mg PO HS Referrals Referrals: Evelyn He CRNP [Primary Care Provider] -
[2022-08-11 22:40] LABS: iSTAT Creatinine 1.2 mg/dl (0.6-1.3); iSTAT Hemoglobin 13.6 g/dl (12.0-16.0); iSTAT Ionized Calcium 1.1 mmol/l (1.12-1.32); iSTAT Potassium 2.8 mmol/L (3.3-5.0)
[2022-08-11 22:41] LABS: Hemoglobin 12.9 g/dl (12.0-16.0); Mean Corpuscular Hemoglobin 28.7 pg (25.0-34.0); Mean Corpuscular Hgb Conc 32.3 g/dL (32.0-36.0); Mean Corpuscular Volume 88.9 fL (80.0-100.0); Mean Platelet Volume 8.8 fL (9.4-12.4); Platelet Count 341 K/uL (130-400); RDW Coefficient of Variation 12.9 % (11.5-14.5); RDW Standard Deviation 42.1 fL (36.4-46.3); White Blood Count 23.62 K/ul (4.8-10.8)
[2022-08-11 22:42] LABS: Base Excess VBG -13.7 mEq/L; HCO3 VBG 19 mmol/L; Oxygen Saturation VBG 68.4 %; PCO2 VBG 79 mmHg (38-50); PO2 VBG 55 mmHg; pH VBG < 7.00 (7.36-7.41)
--- NOTE | 2022-08-11 22:44 | XRay Report ---
SINGLE VIEW CHEST CLINICAL HISTORY: Cardiac arrest. FINDINGS: An AP, portable, supine chest radiograph is obtained. No prior studies are available for co mparison at the time of dictation. An endotracheal tube has been placed. The tip approaches the right mainstem bronchus. The heart is enlarged. The pulmonary vasculature is noncongested. Nonspecific int erstitial thickening is likely chronic. There is mild elevation of the right hemidiaphragm. No airspa ce consolidation or large pleural effusion is identified. No pneumothorax is seen. The skeletal struc tures are osteopenic. There are acute appearing anterior rib fractures. IMPRESSION: 1. An endotracheal tube has been placed. The tip approaches the right mainstem bronchus, and this gomez uld be pulled back 1 to 2 cm. 2. Cardiomegaly with no acute cardiopulmonary abnormality identified. 2. There are acute appearing bilateral anterior rib fractures. ACT 112: Negative or not required by law. Electronically signed by: Nahum Jean M.D. 08/11/2022 10:42 PM
[2022-08-11] MEDS: PROPOFOL IV EMULSION 10 MG/ML 100 ML VIAL IV ONE ×2 (22:47→22:50)
[2022-08-11] MEDS: NOREPINEPHRINE/D5W 4 MG/250 ML PLCT IV SCH (22:48)
[2022-08-11] MEDS: propofoL 1,000 MG/100 ML VIAL IV SCH (22:50)
[2022-08-11 22:51] LABS: INR 1.1 (0.9-1.1); Prothrombin Time 11.4 Seconds (9.0-12.0)
[2022-08-11 22:52] LABS: iSTAT Arterial Blood Gas HCO3 18 meg/L (19-24); iSTAT Arterial Blood Gas pCO2 50 mmHg (35-46); iSTAT Arterial Blood Gas pH 7.15 (7.35-7.45); iSTAT Arterial Blood Gas pO2 > 420 mmHg (80-95); iSTAT Carbon Dioxide 19 mmol/L (24-31); iSTAT Hematocrit 39 % (37-47); iSTAT Hemoglobin 13.3 g/dl (12.0-16.0); iSTAT Sodium 131 mmol/L (135-144)
[2022-08-11] MEDS ORDERED: SODIUM BICARB 8.4% INJ 50 MEQ/50 ML SYR IV STA (22:55)
[2022-08-11 23:02] LABS: Alanine Aminotransferase 142 U/L (7-52); Albumin Level 3.5 gm/dl (3.4-5.0); Alkaline Phosphatase 113 U/L (34-104); Anion Gap 23 (3-11); Aspartate Aminotransferase 171 U/L (13-39); BUN Creatinine Ratio 13.3 (10-20); Bilirubin,Total 0.4 mg/dl (0.2-1.0); Blood Urea Nitrogen 16 mg/dl (6-23); Calcium 8.6 mg/dl (8.5-10.1); Carbon Dioxide 19 mmol/L (21-32); Chloride 92 mmol/L (98-107); Est GFR (Non-African American) 45.8 ml/min; Glucose 229 mg/dl (70-99(Fasting)); Lipase 46 U/L (11-82); Magnesium 2.1 mg/dl (1.7-2.4); Potassium 2.8 mmol/L (3.5-5.1); Sodium 134 mmol/L (136-145); Total Protein 5.9 gm/dl (6.0-8.3)
[2022-08-11] MEDS ORDERED: SODIUM CHLORIDE 0.9% 1000ML 1,000 ML IV ONE ×2 (23:07→23:11)
[2022-08-11 23:11] LABS: Troponin I High Sensitivity 119.8 pg/ml (0-14)
--- NOTE | 2022-08-11 23:17 | Critical Care Consultation ---
Date of Consultation August 11, 2022 Assessment & Plan (1) Cardiopulmonary arrest with successful resuscitation: (2) Nocturnal hypoxemia: (3) Moderate obstructive sleep apnea: (4) Bipolar 1 disorder: (5) HTN (hypertension): (6) Hyperlipemia: (7) Shock: Plan Reason Critically Ill: Patient s/p Cardiac Arrest that appears to have been precipitated by respiratory arrest. Patient arrives to ICU with electrolyte derrangements, lactic acidosis, respiratory/metabolic acidosis intubated and sedated. Arrival to ICU at 0240 Continue supportive care, follow neurological prognostication, and organ dysfunction. Neuro - Seizure like activity, Sedated for Mechanical Ventilation, concern for anoxic injury, Bipolar/Anxiety CAM ICU: Negative Patient arrived without spontaneous movement and agonal breathing in the EMD- have not appreciated any purposeful movement at this time and no localization/withdrawal to pain GCS 3T Holding sedation for neurological exam- patient eyes will open, upward gaze, facial twitching of nose and mouth and forceful biting of ett as well as jerking of arms and legs - concern for seizure- will sedate back with propofol, bolus of versed and versed infusion and wean down if able- Add Keppra if unable to break- EEG in am/ Nuerology consultation Neuroprognostication in 48 hours if no improvement Goal temperature 34-36 repeat electrolytes- Patient is at this temperature without intervention Continue Seroquel as able, Lamotrigine as able Cardiac - S/P Cardiac Arrest with ROSC, Bradycardia, Shock, Elevated HScTNI Shock undifferentiated at this time but likely component of sepsis/hypovolemia and can not rule out cardiogenic at this time VFIB arrest appears to have been precluded by respiratory distress- no history of CAD reported by family Troponin elevation likely demand at this time following resuscitation and defibrillation- ECG improved following improvement in acidosis and perfusion- no STEMI on ECG Continue Levophed for MAPS >65 Bradycardia - possibly related to sedation and hypothermia- eval while off sedation and while warming Hold ARB and BB 2D ECHO in AM Respiratory - Hypercarbic respiratory failure requiring intubation and mechanical ventilation, Rib Fractures ARDSnet ventilatory strategy low PEEP high FIO2 Acidosis improving and CO2 normalizing Continue supportive care eval small pthx with AM CXR daily spont trials as able GI - Pneumatosis possible ischemic bowel, NON- Specific enceliitis, Transaminitis NPO Lactate is improving with resuscitation- abdomen is soft, OGT placed to LIWS - Appreciate General Surgery consultation Non-specific enteritis- continue with volume resusc follow- no risk factors reported for c-diff Elevated Liver enzymes in setting of septic shock and hypoperfusion - INR normal RENAL/LYTES - Respiratory and Metabolic Acidosis, Lactic Acidosis, Hypokalemia, - Continue with volume resuscitation and Vasopressor to maintain MAP >65 and UO > 30ml/kg - Replete K- follow with hypothermia - Lactic acidosis improving - NO acute needs Serrato to gravity ENDO - Hyperglycemia without dx of diabetes ICU hyperglycemic protocol HEME - No acute needs ID - Sepsis= source abdomen/sinusitis source sinus, GI - Continue broad spectrum abx - follow cultures LINES/IV ACCESS - PIV, Right Femoral Central Line, Arterial line, ETT, OGT, Serrato Continue use of these lines DVT PROPHYLAXIS - SCDS, Heparin DISPO: ICU while intubated and sedate I have personally spent 55 minutes of critical care time in the direct management of this patient. This is a life/limb threatening event. This includes time spent evaluating patient, direct bedside care, chart review, placing orders, interpretation of diagnostic studies, discussion with consultants, patient, and family members, as well as other required patient management activities. This time is exclusive of all separately billable procedures,and in addition to any other critical care service time. Thank you for allowing us to participate in the care of this patient. Please refer to my attending physician's documentation for any further recommendations. History of Present Illness Reason for Consultation: Respiratory/Cardiac Arrest Requesting Physician: Travis Rowan Attending Physician: Dr. Oconnor History of Present Illness 71 YOF with medical history of HTN, LEATHA, Obesity, DM, Bipolar disorder. Patient arrived via EMS after called for dyspnea. The patient progressed to reported cardiac arrest reported as VFIB requiring Defibrilation, epi x3 and amiodarone, and airway managed with LMA- remains with GCS 3 on arrival with agonal breathing and was intubated by EMD Dr. Acosta. She lost peripheral IV so femoral central line was placed under sterile conditions by myself at bedside in EMD. PH on arrival PH <7.00, CO2 50, Pa02 >420, HCO3 18. HCO3 administered and fluid bolus administered. She was started on Levophed. Routine labs were obtained as well as blood cultures. Patient labs result with hypokalemia, gap of 23, lactate of 9.6, glucose of 277 and HScTNI of 119.8, and PCT of 0.14, note d elevation of LFTS and ALKpo4 with normal INR. ECG in EMD with RBB without STEMI- no comparison. Patient had CT head completed with perisinus disease and no acute findings, CTA of the chest completed as well as CT abdomen and pelvis. Noted CT chest without PE, small PTHX, CT abd/pelvis noted with pneumatosis of intestinalis and venous portal gas high suspicion of ischemic bowel with hypotensive eppisode as well as non-specific colitis. arrived at bedside and stated patient ate dinner this afternoon and went to her room, she called for him later saying she was having difficulty breathing and was very anxious. Denies her complaining of any chest pain or grabbing her chest, does endorse her wheezing and coughing over the past 2 weeks that occurred with any activity as she is usually very sedentary. Her ECG has improved following her arrival and awaiting repeat labs. Recommend GS consultation. With her hypokalemia will maintain 34-36 degrees patient has been hypothermic since arrival at 32. Allergies Allergy/AdvReac Type Severity Reaction Status Date / Time Penicillins Allergy Intermediate Rash Verified 08/11/22 22:59 codeine AdvReac Intermediate Gastrointestinal Verified 08/11/22 22:59 Upset [id number] Reductase AdvReac Intermediate body aches Verified 08/11/22 22:59 Inhibitor Home Medications Medication Instructions Recorded Confirmed Type esomeprazole magnesium 40 mg 40 mg PO DAILY 08/01/21 08/11/22 History capsule,delayed release hydrochlorothiazide 25 mg tablet 25 mg PO DAILY 08/01/21 08/11/22 History lamotrigine 150 mg tablet 150 mg PO HS 08/01/21 08/11/22 History (Lamictal) lorazepam 1 mg tablet 1 mg PO BID PRN Anxiety 08/01/21 08/11/22 History metoprolol succinate 200 mg 200 mg PO DAILY 08/01/21 08/11/22 History capsule sprinkle, ext. release 24 hr paroxetine HCl 30 mg tablet 60 mg PO QAM 08/01/21 08/11/22 History quetiapine 50 mg tablet 50 mg PO HS 08/01/21 08/11/22 History ergocalciferol (vitamin D2) 1,250 50,000 unit PO WK 08/11/22 08/11/22 History mcg (50,000 unit) capsule (Vitamin D2) olmesartan 5 mg tablet 5 mg PO HS 08/11/22 08/11/22 History simvastatin 20 mg tablet 60 mg PO HS 08/11/22 08/11/22 History Patient History Medical History Bipolar 1 disorder Constipated Fatigue HTN (hypertension) Hyperlipemia IBS (irritable bowel syndrome) Migraine Reflux esophagitis Snoring Family History Father Hypertension Stroke Cancer skin cancer Alcohol abuse Glaucoma Mother Alcohol abuse Grandmother (Maternal) Cancer Hypertension Social History Smoking Status: Unknown if ever smoked Hx Alcohol Use: Yes Alcohol type: hard liquor Alcohol Intake Frequency: 4 or More x per/Week marital status: Current Living Situation: Spouse Review of Systems Review of Systems: REVIEW OF SYSTEMS: Unable to complete secondary to intubation and sedation Physical Exam Physical Exam: PHYSICAL EXAM: General: non responsive, is bucking the ventilator and overbreathing vent Head: Normocephalic, atraumatic ENT: PERRLA- sluggish, mucous membranes dry Neuro: AOx0, intubated and sedated, pupils slugish, No localization to pain or withdrwal, facial twitching eye opening with upward gaze, and jerking of arms with sedation off Chest: equal rise and fall of the chest, decreased breathsounds on left- ETT adjusted Cardiac: Regular rate and rhythm, telemetry reviewed- NSR, skin warm dry, cap refill <3 seconds, peripheral pulses +2 no JVD, no murmur, no edema GI: NABS x 4 quadrants, soft, nontender to palpation, no rebound, guarding or tenderness : Serrato to gravity Extremities: Normal inspection, non elevated flat patches of erythema on arms and legs Results & Data Results & Data ([facility]) Vital Signs (Past 12 Hours) Vital Signs Pulse Resp BP 08/11/22 22:23 82 25 H 80/37 L Laboratory Results Abnormal lab results 08/11/22 08/11/22 08/11/22 Range/Units 22:27 22:28 22:28 WBC 23.62 H (4.8-10.8) K/ul MPV 8.8 L (9.4-12.4) fL Neut # (Auto) 15.36 H (1.40-6.50) K/uL Lymph # (Auto) 5.13 H (1.2-3.4) K/uL [place] # (Auto) 0.77 H (0.11-0.59) K/uL Immature Gran # (Auto) 1.89 H (0.01-0.20) K/uL POC pH (7.35-7.45) POC pCO2 (35-46) mmHg POC pO2 (80-95) mmHg POC HCO3 (19-24) joslyn/L POC Total CO2 (24-31) mmol/L POC Base Excess (-9-1.8) joslyn/L POC ABG O2 Sat (90-95) % VBG pH (7.36-7.41) VBG pCO2 (38-50) mmHg POC Sodium (135-144) mmol/L Sodium 134 L (136-145) mmol/L POC Potassium (3.3-5.0) mmol/L Potassium 2.8 L (3.5-5.1) mmol/L POC Chloride (101-112) mmol/L Chloride 92 L (98-107) mmol/L Carbon Dioxide 19 L (21-32) mmol/L Anion Gap 23 H (3-11) Glucose 229 H (70-99(Fasting)) mg/dl POC Glucose 238 H (70-99) mg/dl POC Glucose (other) (70-99) mg/dl Lactate (0.4-2.0) mmol/L POC Ioniz Calcium Bernice (1.12-1.32) mmol/l AST 171 H (13-39) U/L ALT 142 H (7-52) U/L Alkaline Phosphatase 113 H (34-104) U/L Troponin I High Sens 119.8 H* (0-14) pg/ml Total Protein 5.9 L (6.0-8.3) gm/dl 08/11/22 08/11/22 08/11/22 Range/Units 22:28 22:28 22:28 WBC (4.8-10.8) K/ul MPV (9.4-12.4) fL Neut # (Auto) (1.40-6.50) K/uL Lymph # (Auto) (1.2-3.4) K/uL [place] # (Auto) (0.11-0.59) K/uL Immature Gran # (Auto) (0.01-0.20) K/uL POC pH (7.35-7.45) POC pCO2 (35-46) mmHg POC pO2 (80-95) mmHg POC HCO3 (19-24) joslyn/L POC Total CO2 (24-31) mmol/L POC Base Excess (-9-1.8) joslyn/L POC ABG O2 Sat (90-95) % VBG pH < 7.00 L (7.36-7.41) VBG pCO2 79 H (38-50) mmHg POC Sodium 133 L (135-144) mmol/L Sodium (136-145) mmol/L POC Potassium 2.8 L (3.3-5.0) mmol/L Potassium (3.5-5.1) mmol/L POC Chloride 93 L (101-112) mmol/L Chloride (98-107) mmol/L Carbon Dioxide (21-32) mmol/L Anion Gap (3-11) Glucose (70-99(Fasting)) mg/dl POC Glucose (70-99) mg/dl POC Glucose (other) 227 H (70-99) mg/dl Lactate 9.6 H* (0.4-2.0) mmol/L POC Ioniz Calcium Bernice 1.10 L (1.12-1.32) mmol/l AST (13-39) U/L ALT (7-52) U/L Alkaline Phosphatase (34-104) U/L Troponin I High Sens (0-14) pg/ml Total Protein (6.0-8.3) gm/dl 08/11/22 Range/Units 22:36 WBC (4.8-10.8) K/ul MPV (9.4-12.4) fL Neut # (Auto) (1.40-6.50) K/uL Lymph # (Auto) (1.2-3.4) K/uL [place] # (Auto) (0.11-0.59) K/uL Immature Gran # (Auto) (0.01-0.20) K/uL POC pH 7.15 L* (7.35-7.45) POC pCO2 50 H (35-46) mmHg POC pO2 > 420 H (80-95) mmHg POC HCO3 18 L (19-24) joslyn/L POC Total CO2 19 L (24-31) mmol/L POC Base Excess -11.0 L (-9-1.8) joslyn/L POC ABG O2 Sat 100.0 H (90-95) % VBG pH (7.36-7.41) VBG pCO2 (38-50) mmHg POC Sodium 131 L (135-144) mmol/L Sodium (136-145) mmol/L POC Potassium 3.0 L (3.3-5.0) mmol/L Potassium (3.5-5.1) mmol/L POC Chloride (101-112) mmol/L Chloride (98-107) mmol/L Carbon Dioxide (21-32) mmol/L Anion Gap (3-11) Glucose (70-99(Fasting)) mg/dl POC Glucose (70-99) mg/dl POC Glucose (other) (70-99) mg/dl Lactate (0.4-2.0) mmol/L POC Ioniz Calcium Bernice (1.12-1.32) mmol/l AST (13-39) U/L ALT (7-52) U/L Alkaline Phosphatase (34-104) U/L Troponin I High Sens (0-14) pg/ml Total Protein (6.0-8.3) gm/dl Diagnostic Findings Chest X-Ray 08/11/22 22:23 SINGLE VIEW CHEST CLINICAL HISTORY: Cardiac arrest. FINDINGS: An AP, portable, supine chest radiograph is obtained. No prior studies are available for comparison at the time of dictation. An endotracheal tube has been placed. The tip approaches the right mainstem bronchus. The heart is enlarged. The pulmonary vasculature is noncongested. Nonspecific interstitial thickening is likely chronic. There is mild elevation of the right hemidiaphragm. No airspace consolidation or large pleural effusion is identified. No pneumothorax is seen. The skeletal structures are osteopenic. There are acute appearing anterior rib fractures. IMPRESSION: 1. An endotracheal tube has been placed. The tip approaches the right mainstem bronchus, and this should be pulled back 1 to 2 cm. 2. Cardiomegaly with no acute cardiopulmonary abnormality identified. 2. There are acute appearing bilateral anterior rib fractures. ACT 112: Negative or not required by law. Electronically signed by: Nahum Jean M.D. 08/11/2022 10:42 PM Chest CTA 08/11/22 22:43 CT ANGIOGRAM OF THE CHEST; CT SCAN OF THE ABDOMEN AND PELVIS WITH IV CONTRAST CLINICAL HISTORY: Cardiac arrest. COMPARISON STUDY: Chest x-ray dated 08/11/2022. TECHNIQUE: Following the IV administration of 114 of Optiray 320, CT angiogram of the chest is performed from the upper abdomen to the thoracic inlet utilizing the pulmonary embolus protocol. Images are reviewed in the axial, sagittal, coronal planes. 3-D MIPS images are created and assessed. Subsequently, CT scan of the abdomen and pelvis was performed from the lung bases to the proximal femora. Images are reviewed in the axial, sagittal, and coronal planes. IV contrast was administered without complication. A dose lowering technique was utilized adhering to the principles of ALARA. The examinations are compromised by motion artifact, as well as by streak artifact from the arms which could not be elevated above the chest or abdomen. CT DOSE: 2876.72 mGy.cm FINDINGS: CHEST: Thyroid: Imaged portions of the thyroid gland are normal in size and attenuation. Thoracic aorta: There is atherosclerotic calcification of the thoracic aorta, which is normal in caliber and demonstrates standard 3-vessel arch anatomy. No dissection is seen. Pulmonary vasculature: The main pulmonary arteries appear dilated suggesting pulmonary artery hypertension. There are no filling defects identified in the main, lobar, or segmental pulmonary arteries to indicate pulmonary embolus. Heart: The heart is enlarged and without pericardial effusion. There are coronary artery calcifications. Lungs and pleural spaces: An endotracheal tube is in place. The tip terminates above the hillary. Secretions are noted in the trachea. There is trace right anterior pneumothorax seen on image #136. There are also tiny foci of extrapleural gas on the right. No left-sided pneumothorax is seen. Intralobular septal thickening suggests fluid overload/congestive failure. No pleural effusion is identified. Airspace opacities in the right upper lobe likely represent atelectasis. There is an 8 mm right middle lobe pulmonary nodule seen on axial image #152. A 4 mm left lower lobe pulmonary nodule is seen on image #160. Diffuse peribronchial thickening is observed. Mediastinum: There is no mediastinal hematoma or lymphadenopathy. Robyn: Clear. Axillae: There is no axillary lymphadenopathy. Bony thorax: The skeletal structures are osteopenic. No lytic or blastic lesions are identified. There are acute right anterior 2nd through 8th rib fractures. The 6th rib fracture is comminuted and the 7th rib fracture is mildly displaced.. There are acute left anterior 3rd through 8th rib fractures. The 6th rib fracture is displaced. No sternal fracture is seen. There is a moderate chronic-appearing superior endplate compression deformity of T12. ABDOMEN AND PELVIS: Liver: The contrast-enhanced liver is normal in size, contour, and attenuation. There is no intrahepatic biliary ductal dilatation. The hepatic veins and portal veins are patent. There is portal venous gas seen throughout the left lobe. Gallbladder: Unremarkable. Spleen: Normal in size and attenuation. Pancreas: Unremarkable. Adrenal glands: Unremarkable. Kidneys: The contrast enhanced kidneys demonstrate cortical atrophy and are without hydronephrosis. The kidneys enhance symmetrically. A 13 mm cyst is noted on the right. Abdominal vasculature: The abdominal aorta is normal in course and caliber noting moderate to advanced atherosclerotic calcification. A right femoral central venous catheter is in place. The mesenteric vessels are patent. Stomach and bowel: A small hiatal hernia is noted, with infiltration seen around the gastroesophageal junction. There is pneumatosis intestinalis of the cecum and ascending colon with adjacent mesenteric venous gas. Mild wall thickening and mucosal hyperemia is suggested involving the left colon with faint surrounding infiltration. There is also mild wall thickening and hyperemia seen throughout the small bowel loops. No bowel obstruction is seen. The appendix is well-visualized and normal. Peritoneum: No intraperitoneal free air is seen below the diaphragm. There is no abdominal ascites. There is a fat-containing umbilical hernia. Lymphadenopathy: None. Pelvic viscera: The bladder is decompressed and a Serrato catheter and not well evaluated. The uterus and adnexa are normal as imaged. There is a fat-containing left groin hernia. Skeletal structures: The skeletal structures are osteopenic. There is mild lumbosacral spondylosis. Lumbosacral spine, bony pelvis, and proximal femora appear intact. No lytic or blastic lesions are seen. Sclerotic change is noted in the pubic symphysis. IMPRESSION: 1. There is no evidence of pulmonary embolus in the main, lobar, or segmental pulmonary arteries. 2. Cardiomegaly with evidence of fluid overload/congestive change. 3. There are numerous acute bilateral anterior rib fractures as above, a few of which are comminuted and displaced. 4. There is trace right anterior pneumothorax. 5. Airspace opacities in the right upper lobe likely represent atelectasis. 6. There is evidence of a nonspecific colitis of the left colon which may be ischemic. 7. There is pneumatosis intestinalis of the cecum and ascending colon, with concomitant mesenteric venous and portal venous gas. Ischemic bowel is not excluded. 8. Mild wall thickening and mucosal hyperemia is also suggested involving small bowel loops. This may be related to hypovolemia/hypotension. 9. No intraperitoneal free air is identified. 10. There is nonspecific infiltration identified around the gastroesophageal junction. 11 There are at least 2 pulmonary nodules which measure up to 8 mm. These can be followed as per the Fleischner criteria. See below. 12. Additional findings as above. Please refer to below summary of Fleischner criteria recommendations for follow- up of incidental CT nodules (Alfredo Resendiz, Guidelines for management of small pulmonary nodules detected on CT scans: A statement from the Fleischner Society, Radiology 237: [phone].) SOLID NODULES Solitary nodule size: <6 mm * low risk patients: no follow-up needed * high risk patients: optional CT at 12 months Solitary nodule size: 6-8 mm * low risk patients: follow-up at 6-12 months, then consider further follow-up at 18-24 months * high risk patients: initial follow-up CT at 6-12 months and then at 18-24 months if no change Solitary nodule size: >8 mm * either low or high risk patients - consider follow-up CT at 3 months, and/or CT-PET, and/or biopsy Multiple nodules size: <6 mm * low risk patients: no routine follow-up * high risk patients: optional CT at 12 months Multiple nodules size: 6-8 mm * low risk patients: follow-up at 3-6 months, then consider further follow-up at 18-24 months * high risk patients: follow-up at 3-6 months, then at 18-24 months if no change Multiple nodules size: >8 mm * low risk patients: follow-up at 3-6 months, then consider further follow-up at 18-24 months * high risk patients: follow-up at 3-6 months, then at 18-24 months if no change Note: newly detected indeterminate nodule in persons 35 years of age or older. * low risk patients: minimal or absent history of smoking and/or other known risk factors * high risk patients: history of smoking or of other known risk factors (e.g. first degree relative with lung cancer, or exposure to asbestos, radon, uranium) * if a nodule up to 8 mm is partly solid or is ground glass further follow-up is required after 24 months to exclude possible slow growing adenocarcinoma (FARZAD) SUBSOLID NODULES Solitary pure ground-glass nodule * nodule size <6 mm - no CT follow-up required * nodule size >=6 mm - follow-up CT at 6-12 months, then every 2 years until 5 years Solitary part-solid nodule * nodule size <6 mm - no CT follow-up required * nodule size >=6 mm - follow-up CT at 3-6 months. If unchanged, and solid co mponent remains <6 mm, then annual follow-up for 5 years Multiple subsolid nodules * nodule size <6 mm - follow-up CT at 3-6 months, consider further follow-up at 2 and 4 years if stable * nodule size >=6 mm - follow-up CT at 3-6 months, subsequent management based on the most suspicious nodule(s) ACT 112: Negative or not required by law. Electronically signed by: Nahum Jean M.D. 08/12/2022 12:[address] 08/11/22 22:43 CT SCAN OF THE BRAIN WITHOUT IV CONTRAST CLINICAL HISTORY: Cardiac arrest. COMPARISON STUDY: No priors. TECHNIQUE: Unenhanced axial CT scan of the brain is performed from the vertex to the skull base. A dose lowering technique was utilized adhering to the principles of ALARA. FINDINGS: An endotracheal tube is noted on the asphalt tamper tomogram. Brain parenchyma: There is age-related involutional change noting mild to moderate subcortical and periventricular microangiopathic disease. There is no hemorrhage, mass effect, or evidence of acute territorial ischemia by CT criteria. Luna-white matter differentiation is preserved. No extra-axial fluid collection is seen. Ventricles, sulci, cisterns: Prominent secondary to involutional change. Intracranial vasculature: There is atherosclerotic calcification of the cavernous carotid and vertebral arteries. Calvarium: Unremarkable. Sinuses and mastoids: There is complete opacification of the left maxillary antrum, left ethmoid sinuses, the frontal sinus, and the left sphenoid sinuses. Thickening and sclerosis of the left sinus stovall indicates chronicity. Mild mucosal thickening is noted in the right maxillary antrum, and there is mild mucosal thickening within the right frontal, sphenoidal, and ethmoid sinuses. The mastoid air cells are well pneumatized. Secretions fill the nasopharynx. Orbits: The bony orbits are grossly intact. There are bilateral ocular lens implants. IMPRESSION: 1. There is no hemorrhage, mass effect, or evidence of acute territorial ischemia by CT criteria. 2. Pansinus disease as above. ACT 112: Negative or not required by law. Electronically signed by: Nahum Jean M.D. 08/12/2022 12:07 AM Abdomen/Pelvis CT 08/11/22 23:11 CT ANGIOGRAM OF THE CHEST; CT SCAN OF THE ABDOMEN AND PELVIS WITH IV CONTRAST CLINICAL HISTORY: Cardiac arrest. COMPARISON STUDY: Chest x-ray dated 08/11/2022. TECHNIQUE: Following the IV administration of 114 of Optiray 320, CT angiogram of the chest is performed from the upper abdomen to the thoracic inlet utilizing the pulmonary embolus protocol. Images are reviewed in the axial, sagittal, coronal planes. 3-D MIPS images are created and assessed. Subsequently, CT scan of the abdomen and pelvis was performed from the lung bases to the proximal femora. Images are reviewed in the axial, sagittal, and coronal planes. IV contrast was administered without complication. A dose lowering technique was utilized adhering to the principles of ALARA. The examinations are compromised by motion artifact, as well as by streak artifact from the arms which could not be elevated above the chest or abdomen. CT DOSE: 2876.72 mGy.cm FINDINGS: CHEST: Thyroid: Imaged portions of the thyroid gland are normal in size and attenuation. Thoracic aorta: There is atherosclerotic calcification of the thoracic aorta, which is normal in caliber and demonstrates standard 3-vessel arch anatomy. No dissection is seen. Pulmonary vasculature: The main pulmonary arteries appear dilated suggesting pulmonary artery hypertension. There are no filling defects identified in the main, lobar, or segmental pulmonary arteries to indicate pulmonary embolus. Heart: The heart is enlarged and without pericardial effusion. There are cor onary artery calcifications. Lungs and pleural spaces: An endotracheal tube is in place. The tip terminates above the hillary. Secretions are noted in the trachea. There is trace right anterior pneumothorax seen on image #136. There are also tiny foci of extrapleural gas on the right. No left-sided pneumothorax is seen. Intralobular septal thickening suggests fluid overload/congestive failure. No pleural effusion is identified. Airspace opacities in the right upper lobe likely represent atelectasis. There is an 8 mm right middle lobe pulmonary nodule seen on axial image #152. A 4 mm left lower lobe pulmonary nodule is seen on image #160. Diffuse peribronchial thickening is observed. Mediastinum: There is no mediastinal hematoma or lymphadenopathy. Robyn: Clear. Axillae: There is no axillary lymphadenopathy. Bony thorax: The skeletal structures are osteopenic. No lytic or blastic lesions are identified. There are acute right anterior 2nd through 8th rib fractures. The 6th rib fracture is comminuted and the 7th rib fracture is mildly displaced.. There are acute left anterior 3rd through 8th rib fractures. The 6th rib fracture is displaced. No sternal fracture is seen. There is a moderate chronic-appearing superior endplate compression deformity of T12. ABDOMEN AND PELVIS: Liver: The contrast-enhanced liver is normal in size, contour, and attenuation. There is no intrahepatic biliary ductal dilatation. The hepatic veins and portal veins are patent. There is portal venous gas seen throughout the left lobe. Gallbladder: Unremarkable. Spleen: Normal in size and attenuation. Pancreas: Unremarkable. Adrenal glands: Unremarkable. Kidneys: The contrast enhanced kidneys demonstrate cortical atrophy and are without hydronephrosis. The kidneys enhance symmetrically. A 13 mm cyst is noted on the right. Abdominal vasculature: The abdominal aorta is normal in course and caliber noting moderate to advanced atherosclerotic calcification. A right femoral cent ral venous catheter is in place. The mesenteric vessels are patent. Stomach and bowel: A small hiatal hernia is noted, with infiltration seen around the gastroesophageal junction. There is pneumatosis intestinalis of the cecum and ascending colon with adjacent mesenteric venous gas. Mild wall thickening and mucosal hyperemia is suggested involving the left colon with faint surrounding infiltration. There is also mild wall thickening and hyperemia seen throughout the small bowel loops. No bowel obstruction is seen. The appendix is well-visualized and normal. Peritoneum: No intraperitoneal free air is seen below the diaphragm. There is no abdominal ascites. There is a fat-containing umbilical hernia. Lymphadenopathy: None. Pelvic viscera: The bladder is decompressed and a Serrato catheter and not well evaluated. The uterus and adnexa are normal as imaged. There is a fat-containing left groin hernia. Skeletal structures: The skeletal structures are osteopenic. There is mild lumbo sacral spondylosis. Lumbosacral spine, bony pelvis, and proximal femora appear intact. No lytic or blastic lesions are seen. Sclerotic change is noted in the pubic symphysis. IMPRESSION: 1. There is no evidence of pulmonary embolus in the main, lobar, or segmental pulmonary arteries. 2. Cardiomegaly with evidence of fluid overload/congestive change. 3. There are numerous acute bilateral anterior rib fractures as above, a few of which are comminuted and displaced. 4. There is trace right anterior pneumothorax. 5. Airspace opacities in the right upper lobe likely represent atelectasis. 6. There is evidence of a nonspecific colitis of the left colon which may be ischemic. 7. There is pneumatosis intestinalis of the cecum and ascending colon, with concomitant mesenteric venous and portal venous gas. Ischemic bowel is not excluded. 8. Mild wall thickening and mucosal hyperemia is also suggested involving small bowel loops. This may be related to hypovolemia/hypotension. 9. No intraperitoneal free air is identified. 10. There is nonspecific infiltration identified around the gastroesophageal junction. 11 There are at least 2 pulmonary nodules which measure up to 8 mm. These can be followed as per the Fleischner criteria. See below. 12. Additional findings as above. Please refer to below summary of Fleischner criteria recommendations for follow- up of incidental CT nodules (Alfredo Resendiz, Guidelines for management of small pulmonary nodules detected on CT scans: A statement from the Fleischner Society, Radiology 237: [phone].) SOLID NODULES Solitary nodule size: <6 mm * low risk patients: no follow-up needed * high risk patients: optional CT at 12 months Solitary nodule size: 6-8 mm * low risk patients: follow-up at 6-12 months, then consider further follow-up at 18-24 months * high risk patients: initial follow-up CT at 6-12 months and then at 18-24 months if no change Solitary nodule size: >8 mm * either low or high risk patients - consider follow-up CT at 3 months, and/or CT-PET, and/or biopsy Multiple nodules size: <6 mm * low risk patients: no routine follow-up * high risk patients: optional CT at 12 months Multiple nodules size: 6-8 mm * low risk patients: follow-up at 3-6 months, then consider further follow-up at 18-24 months * high risk patients: follow-up at 3-6 months, then at 18-24 months if no change Multiple nodules size: >8 mm * low risk patients: follow-up at 3-6 months, then consider further follow-up at 18-24 months * high risk patients: follow-up at 3-6 months, then at 18-24 months if no change Note: newly detected indeterminate nodule in persons 35 years of age or older. * low risk patients: minimal or absent history of smoking and/or other known risk factors * high risk patients: history of smoking or of other known risk factors (e.g. first degree relative with lung cancer, or exposure to asbestos, radon, uranium) * if a nodule up to 8 mm is partly solid or is ground glass further follow-up is required after 24 months to exclude possible slow growing adenocarcinoma (FARZAD) SUBSOLID NODULES Solitary pure ground-glass nodule * nodule size <6 mm - no CT follow-up required * nodule size >=6 mm - follow-up CT at 6-12 months, then every 2 years until 5 years Solitary part-solid nodule * nodule size <6 mm - no CT follow-up required * nodule size >=6 mm - follow-up CT at 3-6 months. If unchanged, and solid component remains <6 mm, then annual follow-up for 5 years Multiple subsolid nodules * nodule size <6 mm - follow-up CT at 3-6 months, consider further follow-up at 2 and 4 years if stable * nodule size >=6 mm - follow-up CT at 3-6 months, subsequent management based on the most suspicious nodule(s) ACT 112: Negative or not required by law. Electronically signed by: Nahum Jean M.D. 08/12/2022 12:43 AM Medications Administered Home Medications esomeprazole magnesium 40 mg capsule,delayed release 40 mg PO DAILY 08/01/21 [History Confirmed 08/11/22] hydrochlorothiazide 25 mg tablet 25 mg PO DAILY 08/01/21 [History Confirmed 08/11/22] lamotrigine 150 mg tablet (Lamictal) 150 mg PO HS 08/01/21 [History Confirmed 08/11/22] lorazepam 1 mg tablet 1 mg PO BID PRN Anxiety 08/01/21 [History Confirmed 08/11/22] metoprolol succinate 200 mg capsule sprinkle, ext. release 24 hr 200 mg PO DAILY 08/01/21 [History Confirmed 08/11/22] paroxetine HCl 30 mg tablet 60 mg PO QAM 08/01/21 [History Confirmed 08/11/22] quetiapine 50 mg tablet 50 mg PO HS 08/01/21 [History Confirmed 08/11/22] ergocalciferol (vitamin D2) 1,250 mcg (50,000 unit) capsule (Vitamin D2) 50,000 unit PO WK 08/11/22 [History Confirmed 08/11/22] olmesartan 5 mg tablet 5 mg PO HS 08/11/22 [History Confirmed 08/11/22] simvastatin 20 mg tablet 60 mg PO HS 08/11/22 [History Confirmed 08/11/22] Active Medications Propofol (Diprivan) 1,000 mg in 100 mls @ 12.216 mls/hr IV .Q8H12M JACQUELINE; Protocol Stop: 08/14/22 22:29 Last Titration: 08/11/22 22:53 Dose: 15 mcg/kg/min, 9.2 mls/hr Norepinephrine Bitartrate (Levophed/D5w) 4 mg in 250 mls @ 19.088 mls/hr IV .Q13H6M JACQUELINE; Protocol Stop: 09/10/22 22:44 Last Admin: 08/11/22 22:48 Dose: 0.05 mcg/kg/min, 19.1 mls/hr Potassium Chloride (K Ismael / Wtr) 20 meq in 100 mls @ 50 mls/hr IV ONE ONE; Protocol Stop: 08/12/22 01:23 Propofol (Propofol Bolus From Bag) 20 mg IV Q5M PRN PRN Reason: Sedation Stop: 08/14/22 22:22 ECG Additional Comments: Wide QRS rhythm Right bundle branch block Abnormal ECG No previous ECGs available 12-AUG-2022 00:18:26 Sinus bradycardia with 1st degree A-V block with Premature atrial complexes Prolonged QT Abnormal ECG When compared with ECG of 11-AUG-2022 22:48, (unconfirmed) Previous ECG has undetermined rhythm, needs review QRS duration has increased ST no longer depressed in Inferior leads ST no longer depressed in Anterior leads T wave inversion no lo Coding Level of Care Code Critical Care 1st 30-74 mins Diagnoses Cardiopulmonary arrest with successful resuscitation I46.9 Nocturnal hypoxemia G47.34 Moderate obstructive sleep apnea G47.33 Bipolar 1 disorder F31.9 HTN (hypertension) I10 Hyperlipemia E78.5 Shock R57.9
[2022-08-11] MEDS ORDERED: ERTAPENEM SODIUM 10 ML IV ONE (23:23)
[2022-08-11] MEDS ORDERED: POTASSIUM CHLORIDE / WTR 20 MEQ/100 ML PLCT IV ONE (23:24)
--- NOTE | 2022-08-11 23:24 | Procedure Note ---
Procedure Note Date of Service August 11, 2022 Note Procedure: Right Femoral Vein Central Line Placement Proceduralist: Jose GLASS ([facility]) Attending: Dr. Salazar Indication: Central Drug Administration, Poor Venous Access, Multiple Lab Draws Necessary, etc. Anesthesia: xNone Emergent consent was implied as patient post respiratory arrest, intubated and loss of PIV Patients RIGHT GROIN was cleansed and draped in the typical sterile fashion using Chloraprep. The Femoral Vein and Femoral Artery were identified using ultrasound. Vein was scouted prior, site cleaned. The patient was then prepped and draped in full sterile barriers. Under direct visualization with the ultrasound, the Femoral vein was cannulated using an introducer needle on a syringe. Good venous blood return was maintained prior to removal of syringe from introducer needle. Using Seldinger Technique, a guide wire was advanced through the introducer needle without resistance. The introducer needle was removed and ultrasound images were obtained of the guide wire within the Femoral Vein. A small incision was made in penetrating fashion at the guide wire insertion site utilizing an 11 blade scalpel. The dilator was advanced to the vessel without resistance. The dilator was exchanged for the triple lumen catheter which was advanced into the vessel without resistance. The guide wire was removed intact from the catheter without issue. Claves were placed on each catheter tip with confirmation of good blood flow from each lumen. Each port was easily flushed with sterile saline. The catheter was placed at 20 cm and sutured in place. BioPatch was applied to the catheter and a sterile Tegaderm dressing was applied over the catheter with careful attention to sterility. Patient tolerated procedure well. No immediate complications were met. Procedural Ultrasound Guidance: Procedure Date: 08/11/2022 Indication: Direct Visualization for placement of femoral central line Proceduralist: Jose GLASS ([facility]) Attending: Dr. Salazar Artery AND Vein visualized: YES Compressible Vein: YES Guidewire or Short Catheter seen in vein prior to dilation: Y Images not saved to patient record secondary to emergent need for access. Coding CPT Codes Tubes, Drains, and Vasc Access - Tubes, Drains, and Vasc Access: [id number] Place catheter in vein superior or inferior vena cava ([id number]) Tubes, Drains, and Vasc Access - Tubes, Drains, and Vasc Access: [id number] Ultrasound Guidance For Vascular ([id number]) [facility] Procedure Codes (Charges) Tubes, Drains, and Vasc Access Procedure 1: Tubes, Drains, and Vasc Access: [id number] Place catheter in vein superior or inferior vena cava Procedure 2: Tubes, Drains, and Vasc Access: [id number] Ultrasound Guidance For Vascular
[2022-08-11 23:44] LABS: Basophils # (auto) 0.16 K/uL (0-0.2); Basophils % (auto) 0.7 %; Eosinophils # (auto) 0.31 K/uL (0-0.50); Eosinophils % (auto) 1.3 %; Immature Granulocytes # (auto) 1.89 K/uL (0.01-0.20); Lymphocytes # (auto) 5.13 K/uL (1.2-3.4); Lymphocytes % (auto) 21.7 %; Monocytes # (auto) 0.77 K/uL (0.11-0.59); Monocytes % (auto) 3.3 %; Neutrophils # (auto) 15.36 K/uL (1.40-6.50)
--- NOTE | 2022-08-12 00:09 | CT Scan Report ---
CT SCAN OF THE BRAIN WITHOUT IV CONTRAST CLINICAL HISTORY: Cardiac arrest. COMPARISON STUDY: No priors. TECHNIQUE: Unenhanced axial CT scan of the brain is performed from the vertex to the skull base. A do se lowering technique was utilized adhering to the principles of ALARA. FINDINGS: An endotracheal tube is noted on the supervisor tellers tomogram. Brain parenchyma: There is age-related involutional change noting mild to moderate subcortical and pe riventricular microangiopathic disease. There is no hemorrhage, mass effect, or evidence of acute ter ritorial ischemia by CT criteria. Luna-white matter differentiation is preserved. No extra-axial flui d collection is seen. Ventricles, sulci, cisterns: Prominent secondary to involutional change. Intracranial vasculature: There is atherosclerotic calcification of the cavernous carotid and vertebr al arteries. Calvarium: Unremarkable. Sinuses and mastoids: There is complete opacification of the left maxillary antrum, left ethmoid sinu ses, the frontal sinus, and the left sphenoid sinuses. Thickening and sclerosis of the left sinus wal ls indicates chronicity. Mild mucosal thickening is noted in the right maxillary antrum, and there is mild mucosal thickening within the right frontal, sphenoidal, and ethmoid sinuses. The mastoid air c ells are well pneumatized. Secretions fill the nasopharynx. Orbits: The bony orbits are grossly intact. There are bilateral ocular lens implants. IMPRESSION: 1. There is no hemorrhage, mass effect, or evidence of acute territorial ischemia by CT criteria. 2. Pansinus disease as above. ACT 112: Negative or not required by law. Electronically signed by: Nahum Jean M.D. 08/12/2022 12:07 AM
[2022-08-12] MEDS ORDERED: SODIUM BICARB 8.4% INJ 50 MEQ/50 ML SYR IV STA (00:23)
[2022-08-12] MEDS ORDERED: MAGNESIUM SULFATE / D5W 1 GM/100 ML BAG IV STA (00:24)
--- NOTE | 2022-08-12 00:42 | History & Physical Report ---
Date of Service August 12, 2022 Assessment & Plan (1) Cardiopulmonary arrest with successful resuscitation: (2) Hyperlipemia: (3) Shock: (4) Moderate obstructive sleep apnea: (5) IBS (irritable bowel syndrome): (6) Bipolar 1 disorder: (7) HTN (hypertension): (8) Cardiac arrest with ventricular fibrillation: (9) Reflux esophagitis: Plan Cardiopulmonary V. fib arrest with successful resuscitation- Status post intubation in the ED Admit to the intensive care unit with consultation to ethics officer Dr. Salazar and staff Continue propofol for sedation Continue Levophed for pressure support Continue IV fluids Serial CBC with differential, chemistry profile, magnesium, troponins, phosphorus, lipase, ABGs, chest x-ray and EKG Order complete echocardiogram Continue IV Invanz begun in ED Order MRSA swab and add vancomycin IV if positive GERD/reflux esophagitis- Pantoprazole 40 mg IV daily Hypertension- All medications on hold, as patient is intubated, and hypotensive Bipolar 1 disorder- All medications on hold History of Present Illness Chief Complaint: The patient is brought to the emergency department by EMS following a cardiac arrest outside the hospital with return of [facility]C Primary Care Provider: Evelyn He The patient is a 71-year-old female with past medical history including LEATHA, IBS, bipolar 1 disorder, hypertension, GERD, and hypercholesterolemia. While at home, she developed severe shortness of breath, which was observed by her , who initially thought it was a panic attack but then called 911. When EMS arrived, the patient was unresponsive and had no pulse, and CPR was started. She received epinephrine 3 times, was found to be in V. fib arrest, was successfully electrocardioverted, and then given 150 mg of amiodarone IV. An LMA was placed, and then the patient was intubated upon arrival to the emergency department. In the emergency department, the patient received 2 L of normal saline bolus, K riders, magnesium sulfate IV, sodium bicarb and IV pushes x2, was placed on propofol for sedation and Levophed for pressure maintenance. Patient had orders for chest x-ray, CT of head, chest, abdomen and pelvis and was planned to be admitted to the ICU for further treatment Allergies Allergy/AdvReac Type Severity Reaction Status Date / Time Penicillins Allergy Intermediate Rash Verified 08/11/22 22:59 codeine AdvReac Intermediate Gastrointestinal Verified 08/11/22 22:59 Upset [id number]-[id number]-[id number] Reductase AdvReac Intermediate body aches Verified 08/11/22 22:59 Inhibitor Home Medications Medication Instructions Recorded Confirmed Type esomeprazole magnesium 40 mg 40 mg PO DAILY 08/01/21 08/11/22 History capsule,delayed release hydrochlorothiazide 25 mg tablet 25 mg PO DAILY 08/01/21 08/11/22 History lamotrigine 150 mg tablet 150 mg PO HS 08/01/21 08/11/22 History (Lamictal) lorazepam 1 mg tablet 1 mg PO BID PRN Anxiety 08/01/21 08/11/22 History metoprolol succinate 200 mg 200 mg PO DAILY 08/01/21 08/11/22 History capsule sprinkle, ext. release 24 hr paroxetine HCl 30 mg tablet 60 mg PO QAM 08/01/21 08/11/22 History quetiapine 50 mg tablet 50 mg PO HS 08/01/21 08/11/22 History ergocalciferol (vitamin D2) 1,250 50,000 unit PO WK 08/11/22 08/11/22 History mcg (50,000 unit) capsule (Vitamin D2) olmesartan 5 mg tablet 5 mg PO HS 08/11/22 08/11/22 History simvastatin 20 mg tablet 60 mg PO HS 08/11/22 08/11/22 History Past Med/Surg History Medical History (Updated 08/12/22 @ 01:55 by Matthieu Oconnor MD) Bipolar 1 disorder Constipated Fatigue HTN (hypertension) Hyperlipemia IBS (irritable bowel syndrome) Migraine Reflux esophagitis Snoring Family History Father Hypertension Stroke Cancer Alcohol abuse Glaucoma Mother Alcohol abuse Grandmother (Maternal) Cancer Hypertension Social History Smoking Status: Unknown if ever smoked Hx Alcohol Use: Yes Alcohol type: hard liquor Alcohol Intake Frequency: 4 or More x per/Week marital status: Current Living Situation: Spouse Review of Systems Review of Systems: Limited to information from the emergency department and EMS Physical Exam Physical Exam: The patient is intubated and sedated HEENT--PERRL, mucous membranes and oropharynx dry. Neck--supple. No JVD. No bruits. Thyroid normal and trachea midline Heart--normal S1 and S2. No murmurs, rubs or gallops. Lungs--coarse breath sounds bilaterally. Abdomen--normal bowel sounds and soft. Mildly distended and tympanitic. Obese Extremities--no cyanosis or clubbing. No edema. Dermatologic--normal skin turgor, normal color, no abnormal lymph nodes, no rash. Neurologic--limited exam Rheumatologic--limited exam Psychiatric--sedated and intubated Results & Data Results & Data ([facility]) Vital Signs (Past 12 Hours) Vital Signs Pulse Resp BP Pulse Ox O2 Del Method FiO2 08/12/22 00:20 50 L 21 101/55 L 100 Mechanical Vent 08/12/22 00:15 52 L 21 93/46 L 100 Mechanical Vent 08/12/22 00:10 52 L 21 91/51 L 100 Mechanical Vent 08/12/22 00:08 51 L 21 94/47 L 99 Mechanical Vent 08/11/22 23:26 68 22 82/38 L 100 Mechanical Vent 08/11/22 23:20 66 13 81/46 L 100 Mechanical Vent 08/11/22 23:15 70 14 83/34 L 100 Mechanical Vent 08/11/22 23:10 82 14 65/40 L 100 Mechanical Vent 08/11/22 23:05 84 14 92/52 L 100 Mechanical Vent 08/11/22 23:00 84 14 69/52 L 100 Mechanical Vent 08/11/22 22:55 87 15 67/50 L 100 Mechanical Vent 08/11/22 22:50 80 16 77/37 L 100 Mechanical Vent 08/11/22 22:46 80 16 68/52 L 100 Mechanical Vent 08/11/22 22:42 85 16 83/47 L 100 Mechanical Vent 08/11/22 22:35 72 14 63/40 L 100 Mechanical Vent 08/11/22 22:30 72 14 79/49 L 90 Ambu-Bag 08/11/22 22:25 77 12 80/37 L 90 Ambu-Bag 08/11/22 22:20 23 100 100 08/11/22 22:23 82 25 H 80/37 L Laboratory Results Laboratory Results WBC 23.62 K/ul (4.8-10.8) H 08/11/22 22:28 RBC 4.50 M/uL (4.20-5.40) 08/11/22 22: Hgb 12.9 g/dl (12.0-16.0) 08/11/22 22: POC Hgb 13.3 g/dl (12.0-16.0) 08/11/22 22:36 Hct 40.0 % (37.0-47.0) 08/11/22 22: POC Hct 39 % (37-47) 08/11/22 22: MCV 88.9 fL (80.0-100.0) 08/11/22 22: MCH 28.7 pg (25.0-34.0) 08/11/22 22: MCHC 32.3 g/dL (32.0-36.0) 08/11/22: RDW Std Deviation 42.1 fL (36.4-46.3) 08/11/22: RDW Coeff of Foster 12.9 % (11.5-14.5) 08/11/22: Plt Count 341 K/uL (130-400) 08/11/22: MPV 8.8 fL (9.4-12.4) L 08/11/22: Immature Gran % (Auto) 8.0 % 08/11/22 22: Neut % (Auto) 65.0 % 08/11/22: Lymph % (Auto) 21.7 % 08/11/22: [place] % (Auto) 3.3 % 08/11/22: Eos % (Auto) 1.3 % 08/11/22: Baso % (Auto) 0.7 % 08/11/22: Neut # (Auto) 15.36 K/uL (1.40-6.50) H 08/11/22 22: Lymph # (Auto) 5.13 K/uL (1.2-3.4) H 08/11/22 22: [place] # (Auto) 0.77 K/uL (0.11-0.59) H 08/11/22 22: Eos # (Auto) 0.31 K/uL (0-0.50) 08/11/22: Baso # (Auto) 0.16 K/uL (0-0.2) 08/11/22 22: Immature Gran # (Auto) 1.89 K/uL (0.01-0.20) H 08/11/22 22: PT 11.4 Seconds (9.0-12.0) 08/11/22 22: INR 1.1 (0.9-1.1) 08/11/22 22:28 POC pH 7.15 (7.35-7.45) L* 08/11/22 22:36 POC pCO2 50 mmHg (35-46) H 08/11/22 22:36 POC pO2 > 420 mmHg (80-95) H 08/11/22 22:36 POC HCO3 18 joslyn/L (19-24) L 08/11/22 22:36 POC Total CO2 19 mmol/L (24-31) L 08/11/22 22:36 POC Base Excess -11.0 joslyn/L (-9-1.8) L 08/11/22 22: POC ABG O2 Sat 100.0 % (90-95) H 08/11/22 22:36 VBG pH < 7.00 (7.36-7.41) L 08/11/22 22: VBG pCO2 79 mmHg (38-50) H 08/11/22 22: VBG pO2 55 mmHg 08/11/22 22: VBG HCO3 19 mmol/L 08/11/22 22:28 VBG O2 Saturation 68.4 % 08/11/22 22: VBG Base Excess -13.7 mEq/L 08/11/22 22:28 POC Sodium 131 mmol/L (135-144) L 08/11/22 22:36 Sodium 134 mmol/L (136-145) L 08/11/22 22:28 POC Potassium 3.0 mmol/L (3.3-5.0) L 08/11/22 22:36 Potassium 2.8 mmol/L (3.5-5.1) L 08/11/22 22: POC Chloride 93 mmol/L (101-112) L 08/11/22 22:28 Chloride 92 mmol/L (98-107) L 08/11/22 22:28 Carbon Dioxide 19 mmol/L (21-32) L 08/11/22 22:28 POC Total CO2 24 mmol/L (24-31) 02/03/23 22:28 Anion Gap 23 (3-11) H 08/11/22 22:28 POC Anion Gap 20.0 mmol/L (16-25) 08/11/22 22:28 POC BUN 15 mg/dl (7-18) 08/11/22 22:28 BUN 16 mg/dl (6-23) 08/11/22 22: Creatinine 1.20 mg/dl (0.6-1.2) 08/11/22 22: POC Creatinine 1.2 mg/dl (0.6-1.3) 08/11/22 22: Est Cr Clr Drug Dosing Not Reportable 08/11/22 22: Est GFR ( Amer) 53.0 ml/min 08/11/22 22: Est GFR (Non-Af Amer) 45.8 ml/min 08/11/22 22: BUN/Creatinine Ratio 13.3 (10-20) 08/11/22 22:28 Glucose 229 mg/dl (70-99(Fasting)) H 08/11/22 22:28 POC Glucose 238 mg/dl (70-99) H 08/11/22 22:27 POC Glucose (other) 227 mg/dl (70-99) H 08/11/22 22: Lactate 7.3 mmol/L (0.4-2.0) H* 08/12/22 00:32 Calcium 8.6 mg/dl (8.5-10.1) 08/11/22 22:28 POC Ioniz Calcium Bernice 1.10 mmol/l (1.12-1.32) L 08/11/22 22: Magnesium 2.1 mg/dl (1.7-2.4) 08/11/22 22: Total Bilirubin 0.4 mg/dl (0.2-1.0) 08/11/22 22: Direct Bilirubin 0.0 mg/dl (0-0.2) 08/11/22 22:28 AST 171 U/L (13-39) H 08/11/22 22:28 ALT 142 U/L (7-52) H 08/11/22 22:28 Alkaline Phosphatase 113 U/L (34-104) H 08/11/22 22:28 Troponin I High Sens 119.8 pg/ml (0-14) H* 08/11/22 22:28 Total Protein 5.9 gm/dl (6.0-8.3) L 08/11/22 22: Albumin 3.5 gm/dl (3.4-5.0) 08/11/22 22:28 Lipase 46 U/L (11-82) 08/11/22 22:28 Procalcitonin 0.14 ng/ml (0-0.5) 08/11/22 22:28 Adenovirus (PCR) Not Detected (NotDetected) 08/12/22 00:34 B. pertussis DNA (PCR) Not Detected (NotDetected) 08/12/22 00:34 B.parapertussis DNA PCR Not Detected (NotDetected) 08/12/22 00:34 C. pneumoniae DNA (PCR) Not Detected (NotDetected) 08/12/22 00:34 Coronavirus OC43 (PCR) Not Detected (NotDetected) 08/12/22 00:34 Coronavirus HKU1 (PCR) Not Detected (NotDetected) 08/12/22 00:34 Coronavirus 229E (PCR) Not Detected (NotDetected) 08/12/22 00:34 SARS-CoV-2 (PCR) Not Detected (NotDetected) 08/12/22 00:34 Coronavirus NL63 (PCR) Not Detected (NotDetected) 08/12/22 00:34 Human Metapneumovir PCR Not Detected (NotDetected) 08/12/22 00:34 Influenza Type A (PCR) Not Detected (NotDetected) 08/12/22 00:34 Influenza Type B (PCR) Not Detected (NotDetected) 08/12/22 00:34 M. pneumoniae (PCR) Not Detected (NotDetected) 08/12/22 00:34 Parainfluenza 1 (PCR) Not Detected (NotDetected) 08/12/22 00:34 Parainfluenza 2 (PCR) Not Detected (NotDetected) 08/12/22 00:34 Parainfluenza 3 (PCR) Not Detected (NotDetected) 08/12/22 00:34 Parainfluenza 4 (PCR) Not Detected (NotDetected) 08/12/22 00:34 RSV (PCR) Not Detected (NotDetected) 08/12/22 00:34 Entero/Rhino (PCR) Not Detected (NotDetected) 08/12/22 00:34 Impressions Chest X-Ray 08/11/22 22:23 SINGLE VIEW CHEST CLINICAL HISTORY: Cardiac arrest. FINDINGS: An AP, portable, supine chest radiograph is obtained. No prior studies are available for comparison at the time of dictation. An endotracheal tube has been placed. The tip approaches the right mainstem bronchus. The heart is enlarged. The pulmonary vasculature is noncongested. Nonspecific interstitial thickening is likely chronic. There is mild elevation of the right hemidiaphragm. No airspace consolidation or large pleural effusion is identified. No pneumothorax is seen. The skeletal structures are osteopenic. There are acute appearing anterior rib fractures. IMPRESSION: 1. An endotracheal tube has been placed. The tip approaches the right mainstem bronchus, and this should be pulled back 1 to 2 cm. 2. Cardiomegaly with no acute cardiopulmonary abnormality identified. 2. There are acute appearing bilateral anterior rib fractures. ACT 112: Negative or not required by law. Electronically signed by: Nahum Jean M.D. 08/11/2022 10:42 PM Chest CTA 08/11/22 22:43 CT ANGIOGRAM OF THE CHEST; CT SCAN OF THE ABDOMEN AND PELVIS WITH IV CONTRAST CLINICAL HISTORY: Cardiac arrest. COMPARISON STUDY: Chest x-ray dated 08/11/2022. TECHNIQUE: Following the IV administration of 114 of Optiray 320, CT angiogram of the chest is performed from the upper abdomen to the thoracic inlet utilizing the pulmonary embolus protocol. Images are reviewed in the axial, sagittal, coronal planes. 3-D MIPS images are created and assessed. Subsequently, CT scan of the abdomen and pelvis was performed from the lung bases to the proximal femora. Images are reviewed in the axial, sagittal, and coronal planes. IV contrast was administered without complication. A dose lowering technique was utilized adhering to the principles of ALARA. The examinations are compromised by motion artifact, as well as by streak artifact from the arms which could not be elevated above the chest or abdomen. CT DOSE: 2876.72 mGy.cm FINDINGS: CHEST: Thyroid: Imaged portions of the thyroid gland are normal in size and attenuation. Thoracic aorta: There is atherosclerotic calcification of the thoracic aorta, which is normal in caliber and demonstrates standard 3-vessel arch anatomy. No dissection is seen. Pulmonary vasculature: The main pulmonary arteries appear dilated suggesting pulmonary artery hypertension. There are no filling defects identified in the main, lobar, or segmental pulmonary arteries to indicate pulmonary embolus. Heart: The heart is enlarged and without pericardial effusion. There are coronary artery calcifications. Lungs and pleural spaces: An endotracheal tube is in place. The tip terminates above the hillary. Secretions are noted in the trachea. There is trace right anterior pneumothorax seen on image #136. There are also tiny foci of extrapleu ral gas on the right. No left-sided pneumothorax is seen. Intralobular septal thickening suggests fluid overload/congestive failure. No pleural effusion is identified. Airspace opacities in the right upper lobe likely represent atelectasis. There is an 8 mm right middle lobe pulmonary nodule seen on axial image #152. A 4 mm left lower lobe pulmonary nodule is seen on image #160. Diffuse peribronchial thickening is observed. Mediastinum: There is no mediastinal hematoma or lymphadenopathy. Robyn: Clear. Axillae: There is no axillary lymphadenopathy. Bony thorax: The skeletal structures are osteopenic. No lytic or blastic lesions are identified. There are acute right anterior 2nd through 8th rib fractures. The 6th rib fracture is comminuted and the 7th rib fracture is mildly displaced .. There are acute left anterior 3rd through 8th rib fractures. The 6th rib fracture is displaced. No sternal fracture is seen. There is a moderate chronic- appearing superior endplate compression deformity of T12. ABDOMEN AND PELVIS: Liver: The contrast-enhanced liver is normal in size, contour, and attenuation. There is no intrahepatic biliary ductal dilatation. The hepatic veins and portal veins are patent. There is portal venous gas seen throughout the left lobe. Gallbladder: Unremarkable. Spleen: Normal in size and attenuation. Pancreas: Unremarkable. Adrenal glands: Unremarkable. Kidneys: The contrast enhanced kidneys demonstrate cortical atrophy and are without hydronephrosis. The kidneys enhance symmetrically. A 13 mm cyst is noted on the right. Abdominal vasculature: The abdominal aorta is normal in course and caliber noting moderate to advanced atherosclerotic calcification. A right femoral central venous catheter is in place. The mesenteric vessels are patent. Stomach and bowel: A small hiatal hernia is noted, with infiltration seen around the gastroesophageal junction. There is pneumatosis intestinalis of the cecum and ascending colon with adjacent mesenteric venous gas. Mild wall thickening and mucosal hyperemia is suggested involving the left colon with faint surrounding infiltration. There is also mild wall thickening and hyperemia seen throughout the small bowel loops. No bowel obstruction is seen. The appendix is well-visualized and normal. Peritoneum: No intraperitoneal free air is seen below the diaphragm. There is no abdominal ascites. There is a fat-containing umbilical hernia. Lymphadenopathy: None. Pelvic viscera: The bladder is decompressed and a Serrato catheter and not well evaluated. The uterus and adnexa are normal as imaged. There is a fat-containing left groin hernia. Skeletal structures: The skeletal structures are osteopenic. There is mild lumbosacral spondylosis. Lumbosacral spine, bony pelvis, and proximal femora appear intact. No lytic or blastic lesions are seen. Sclerotic change is noted in the pubic symphysis. IMPRESSION: 1. There is no evidence of pulmonary embolus in the main, lobar, or segmental pulmonary arteries. 2. Cardiomegaly with evidence of fluid overload/congestive change. 3. There are numerous acute bilateral anterior rib fractures as above, a few of which are comminuted and displaced. 4. There is trace right anterior pneumothorax. 5. Airspace opacities in the right upper lobe likely represent atelectasis. 6. There is evidence of a nonspecific colitis of the left colon which may be ischemic. 7. There is pneumatosis intestinalis of the cecum and ascending colon, with concomitant mesenteric venous and portal venous gas. Ischemic bowel is not excluded. 8. Mild wall thickening and mucosal hyperemia is also suggested involving small bowel loops. This may be related to hypovolemia/hypotension. 9. No intraperitoneal free air is identified. 10. There is nonspecific infiltration identified around the gastroesophageal junction. 11 There are at least 2 pulmonary nodules which measure up to 8 mm. These can be followed as per the Fleischner criteria. See below. 12. Additional findings as above. Please refer to below summary of Fleischner criteria recommendations for follow- up of incidental CT nodules (Alfredo Resendiz, Guidelines for management of small pulmonary nodules detected on CT scans: A statement from the Fleischner Society, Radiology 237: [phone].) SOLID NODULES Solitary nodule size: <6 mm * low risk patients: no follow-up needed * high risk patients: optional CT at 12 months Solitary nodule size: 6-8 mm * low risk patients: follow-up at 6-12 months, then consider further follow-up at 18-24 months * high risk patients: initial follow-up CT at 6-12 months and then at 18-24 months if no change Solitary nodule size: >8 mm * either low or high risk patients - consider follow-up CT at 3 months, and/or CT-PET, and/or biopsy Multiple nodules size: <6 mm * low risk patients: no routine follow-up * high risk patients: optional CT at 12 months Multiple nodules size: 6-8 mm * low risk patients: follow-up at 3-6 months, then consider further follow-up at 18-24 months * high risk patients: follow-up at 3-6 months, then at 18-24 months if no change Multiple nodules size: >8 mm * low risk patients: follow-up at 3-6 months, then consider further follow-up at 18-24 months * high risk patients: follow-up at 3-6 months, then at 18-24 months if no change Note: newly detected indeterminate nodule in persons 35 years of age or older. * low risk patients: minimal or absent history of smoking and/or other known risk factors * high risk patients: history of smoking or of other known risk factors (e.g. first degree relative with lung cancer, or exposure to asbestos, radon, uranium) * if a nodule up to 8 mm is partly solid or is ground glass further follow-up is required after 24 months to exclude possible slow growing adenocarcinoma (FARZAD) SUBSOLID NODULES Solitary pure ground-glass nodule * nodule size <6 mm - no CT follow-up required * nodule size >=6 mm - follow-up CT at 6-12 months, then every 2 years until 5 years Solitary part-solid nodule * nodule size <6 mm - no CT follow-up required * nodule size >=6 mm - follow-up CT at 3-6 months. If unchanged, and solid component remains <6 mm, then annual follow-up for 5 years Multiple subsolid nodules * nodule size <6 mm - follow-up CT at 3-6 months, consider further follow-up at 2 and 4 years if stable * nodule size >=6 mm - follow-up CT at 3-6 months, subsequent management based on the most suspicious nodule(s) ACT 112: Negative or not required by law. Electronically signed by: Nahum Jean M.D. 08/12/2022 12:[address] 08/11/22 22:43 CT SCAN OF THE BRAIN WITHOUT IV CONTRAST CLINICAL HISTORY: Cardiac arrest. COMPARISON STUDY: No priors. TECHNIQUE: Unenhanced axial CT scan of the brain is performed from the vertex to the skull base. A dose lowering technique was utilized adhering to the principles of ALARA. 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 Brain parenchyma: There is age-related involutional change noting mild to moderate subcortical and periventricular microangiopathic disease. There is no hemorrhage, mass effect, or evidence of acute territorial ischemia by CT criteria. Luna-white matter differentiation is preserved. No extra-axial fluid collection is seen. Ventricles, sulci, cisterns: Prominent secondary to involutional change. Intracranial vasculature: There is atherosclerotic calcification of the cavernous carotid and vertebral arteries. Calvarium: Unremarkable. Sinuses and mastoids: There is complete opacification of the left maxillary antrum, left ethmoid sinuses, the frontal sinus, and the left sphenoid sinuses. Thickening and sclerosis of the left sinus stovall indicates chronicity. Mild mucosal thickening is noted in the right maxillary antrum, and there is mild mucosal thickening within the right frontal, sphenoidal, and ethmoid sinuses. The mastoid air cells are well pneumatized. Secretions fill the nasopharynx. Orbits: The bony orbits are grossly intact. There are bilateral ocular lens implants. IMPRESSION: 1. There is no hemorrhage, mass effect, or evidence of acute territorial ischemia by CT criteria. 2. Pansinus disease as above. ACT 112: Negative or not required by law. Electronically signed by: Nahum Jean M.D. 08/12/2022 12:07 AM Abdomen/Pelvis CT 08/11/22 23:11 CT ANGIOGRAM OF THE CHEST; CT SCAN OF THE ABDOMEN AND PELVIS WITH IV CONTRAST CLINICAL HISTORY: Cardiac arrest. COMPARISON STUDY: Chest x-ray dated 08/11/2022. TECHNIQUE: Following the IV administration of 114 of Optiray 320, CT angiogram of the chest is performed from the upper abdomen to the thoracic inlet utilizing the pulmonary embolus protocol. Images are reviewed in the axial, sagittal, coronal planes. 3-D MIPS images are created and assessed. Subsequently, CT scan of the abdomen and pelvis was performed from the lung bases to the proximal femora. Images are reviewed in the axial, sagittal, and coronal planes. IV contrast was administered without complication. A dose lowering technique was utilized adhering to the principles of ALARA. The examinations are compromised by motion artifact, as well as by streak artifact from the arms which could not be elevated above the chest or abdomen. CT DOSE: 2876.72 mGy.cm FINDINGS: CHEST: Thyroid: Imaged portions of the thyroid gland are normal in size and attenuation. Thoracic aorta: There is atherosclerotic calcification of the thoracic aorta, which is normal in caliber and demonstrates standard 3-vessel arch anatomy. No dissection is seen. Pulmonary vasculature: The main pulmonary arteries appear dilated suggesting pulmonary artery hypertension. There are no filling defects identified in the main, lobar, or segmental pulmonary arteries to indicate pulmonary embolus. Heart: The heart is enlarged and without pericardial effusion. There are coronary artery calcifications. Lungs and pleural spaces: An endotracheal tube is in place. The tip terminates above the hillary. Secretions are noted in the trachea. There is trace right anterior pneumothorax seen on image #136. There are also tiny foci of extrapleural gas on the right. No left-sided pneumothorax is seen. Intralobular septal thickening suggests fluid overload/congestive failure. No pleural effusion is identified. Airspace opacities in the right upper lobe likely represent atelectasis. There is an 8 mm right middle lobe pulmonary nodule seen on axial image #152. A 4 mm left lower lobe pulmonary nodule is seen on image #160. Diffuse peribronchial thickening is observed. Mediastinum: There is no mediastinal hematoma or lymphadenopathy. Robyn: Clear. Axillae: There is no axillary lymphadenopathy. Bony thorax: The skeletal structures are osteopenic. No lytic or blastic lesions are identified. There are acute right anterior 2nd through 8th rib fractures. The 6th rib fracture is comminuted and the 7th rib fracture is mildly displaced.. There are acute left anterior 3rd through 8th rib fractures. The 6th rib fracture is displaced. No sternal fracture is seen. There is a moderate chronic-appearing superior endplate compression deformity of T12. ABDOMEN AND PELVIS: Liver: The contrast-enhanced liver is normal in size, contour, and attenuation. There is no intrahepatic biliary ductal dilatation. The hepatic veins and portal veins are patent. There is portal venous gas seen throughout the left lobe. Gallbladder: Unremarkable. Spleen: Normal in size and attenuation. Pancreas: Unremarkable. Adrenal glands: Unremarkable. Kidneys: The contrast enhanced kidneys demonstrate cortical atrophy and are without hydronephrosis. The kidneys enhance symmetrically. A 13 mm cyst is noted on the right. Abdominal vasculature: The abdominal aorta is normal in course and caliber noting moderate to advanced atherosclerotic calcification. A right femoral c entral venous catheter is in place. The mesenteric vessels are patent. Stomach and bowel: A small hiatal hernia is noted, with infiltration seen around the gastroesophageal junction. There is pneumatosis intestinalis of the cecum and ascending colon with adjacent mesenteric venous gas. Mild wall thickening and mucosal hyperemia is suggested involving the left colon with faint surrounding infiltration. There is also mild wall thickening and hyperemia seen throughout the small bowel loops. No bowel obstruction is seen. The appendix is well-visualized and normal. Peritoneum: No intraperitoneal free air is seen below the diaphragm. There is no abdominal ascites. There is a fat-containing umbilical hernia. Lymphadenopathy: None. Pelvic viscera: The bladder is decompressed and a Serrato catheter and not well evaluated. The uterus and adnexa are normal as imaged. There is a fat-containing left groin hernia. Skeletal structures: The skeletal structures are osteopenic. There is mild chanell mbosacral spondylosis. Lumbosacral spine, bony pelvis, and proximal femora appear intact. No lytic or blastic lesions are seen. Sclerotic change is noted in the pubic symphysis. IMPRESSION: 1. There is no evidence of pulmonary embolus in the main, lobar, or segmental pulmonary arteries. 2. Cardiomegaly with evidence of fluid overload/congestive change. 3. There are numerous acute bilateral anterior rib fractures as above, a few of which are comminuted and displaced. 4. There is trace right anterior pneumothorax. 5. Airspace opacities in the right upper lobe likely represent atelectasis. 6. There is evidence of a nonspecific colitis of the left colon which may be ischemic. 7. There is pneumatosis intestinalis of the cecum and ascending colon, with concomitant mesenteric venous and portal venous gas. Ischemic bowel is not excluded. 8. Mild wall thickening and mucosal hyperemia is also suggested involving small bowel loops. This may be related to hypovolemia/hypotension. 9. No intraperitoneal free air is identified. 10. There is nonspecific infiltration identified around the gastroesophageal junction. 11 There are at least 2 pulmonary nodules which measure up to 8 mm. These can be followed as per the Fleischner criteria. See below. 12. Additional findings as above. Please refer to below summary of Fleischner criteria recommendations for follow- up of incidental CT nodules (Alfredo Resendiz, Guidelines for management of small pulmonary nodules detected on CT scans: A statement from the Fleischner Society, Radiology 237: [phone].) SOLID NODULES Solitary nodule size: <6 mm * low risk patients: no follow-up needed * high risk patients: optional CT at 12 months Solitary nodule size: 6-8 mm * low risk patients: follow-up at 6-12 months, then consider further follow-up at 18-24 months * high risk patients: initial follow-up CT at 6-12 months and then at 18-24 months if no change Solitary nodule size: >8 mm * either low or high risk patients - consider follow-up CT at 3 months, and/or CT-PET, and/or biopsy Multiple nodules size: <6 mm * low risk patients: no routine follow-up * high risk patients: optional CT at 12 months Multiple nodules size: 6-8 mm * low risk patients: follow-up at 3-6 months, then consider further follow-up at 18-24 months * high risk patients: follow-up at 3-6 months, then at 18-24 months if no change Multiple nodules size: >8 mm * low risk patients: follow-up at 3-6 months, then consider further follow-up at 18-24 months * high risk patients: follow-up at 3-6 months, then at 18-24 months if no change Note: newly detected indeterminate nodule in persons 35 years of age or older. * low risk patients: minimal or absent history of smoking and/or other known risk factors * high risk patients: history of smoking or of other known risk factors (e.g. first degree relative with lung cancer, or exposure to asbestos, radon, uranium) * if a nodule up to 8 mm is partly solid or is ground glass further follow-up is required after 24 months to exclude possible slow growing adenocarcinoma (FARZAD) SUBSOLID NODULES Solitary pure ground-glass nodule * nodule size <6 mm - no CT follow-up required * nodule size >=6 mm - follow-up CT at 6-12 months, then every 2 years until 5 years Solitary part-solid nodule * nodule size <6 mm - no CT follow-up required * nodule size >=6 mm - follow-up CT at 3-6 months. If unchanged, and solid component remains <6 mm, then annual follow-up for 5 years Multiple subsolid nodules * nodule size <6 mm - follow-up CT at 3-6 months, consider further follow-up at 2 and 4 years if stable * nodule size >=6 mm - follow-up CT at 3-6 months, subsequent management based on the most suspicious nodule(s) ACT 112: Negative or not required by law. Electronically signed by: Nahum Jean M.D. 08/12/2022 12:43 AM Code Status & VTE Plan Code Status Full code VTE Prophylaxis Plan VTE Prophylaxis will be ordered: Yes PG Care Time/CCT Total # of Minutes Spent Total Time Spent with Patient: Total time spent is greater than 50% in coordination of care (as documented) at patient's floor/unit and/or counseling patient: Coding Level of Care Code 25553 INT INP/OBS CARE 3/75MIN Diagnoses Cardiopulmonary arrest with successful resuscitation I46.9 Hyperlipemia E78.5 Shock R57.9 Moderate obstructive sleep apnea G47.33 IBS (irritable bowel syndrome) K58.9 Bipolar 1 disorder F31.9 HTN (hypertension) I10 Cardiac arrest with ventricular fibrillation I46.9; I49.01 Reflux esophagitis K21.00
--- NOTE | 2022-08-12 00:45 | CT Scan Report ---
CT ANGIOGRAM OF THE CHEST; CT SCAN OF THE ABDOMEN AND PELVIS WITH IV CONTRAST CLINICAL HISTORY: Cardiac arrest. COMPARISON STUDY: Chest x-ray dated 08/11/2022. TECHNIQUE: Following the IV administration of 114 of Optiray 320, CT angiogram of the chest is perfor med from the upper abdomen to the thoracic inlet utilizing the pulmonary embolus protocol. Images are reviewed in the axial, sagittal, coronal planes. 3-D MIPS images are created and assessed. Subsequen tly, CT scan of the abdomen and pelvis was performed from the lung bases to the proximal femora. Imag es are reviewed in the axial, sagittal, and coronal planes. IV contrast was administered without comp lication. A dose lowering technique was utilized adhering to the principles of ALARA. The examination s are compromised by motion artifact, as well as by streak artifact from the arms which could not be elevated above the chest or abdomen. CT DOSE: 2876.72 mGy.cm FINDINGS: CHEST: Thyroid: Imaged portions of the thyroid gland are normal in size and attenuation. Thoracic aorta: There is atherosclerotic calcification of the thoracic aorta, which is normal in prabhakar yoseph and demonstrates standard 3-vessel arch anatomy. No dissection is seen. Pulmonary vasculature: The main pulmonary arteries appear dilated suggesting pulmonary artery hyperte nsion. There are no filling defects identified in the main, lobar, or segmental pulmonary arteries to indicate pulmonary embolus. Heart: The heart is enlarged and without pericardial effusion. There are coronary artery calcificatio ns. Lungs and pleural spaces: An endotracheal tube is in place. The tip terminates above the hillary. Secr etions are noted in the trachea. There is trace right anterior pneumothorax seen on image #136. There are also tiny foci of extrapleural gas on the right. No left-sided pneumothorax is seen. Intralobula r septal thickening suggests fluid overload/congestive failure. No pleural effusion is identified. rspace opacities in the right upper lobe likely represent atelectasis. There is an 8 mm right middle lobe pulmonary nodule seen on axial image #152. A 4 mm left lower lobe pulmonary nodule is seen on im age #160. Diffuse peribronchial thickening is observed. Mediastinum: There is no mediastinal hematoma or lymphadenopathy. Robyn: Clear. Axillae: There is no axillary lymphadenopathy. Bony thorax: The skeletal structures are osteopenic. No lytic or blastic lesions are identified. Ther e are acute right anterior 2nd through 8th rib fractures. The 6th rib fracture is comminuted and the 7th rib fracture is mildly displaced.. There are acute left anterior 3rd through 8th rib fractures. T he 6th rib fracture is displaced. No sternal fracture is seen. There is a moderate chronic-appearing superior endplate compression deformity of T12. ABDOMEN AND PELVIS: Liver: The contrast-enhanced liver is normal in size, contour, and attenuation. There is no intrahepa tic biliary ductal dilatation. The hepatic veins and portal veins are patent. There is portal venous gas seen throughout the left lobe. Gallbladder: Unremarkable. Spleen: Normal in size and attenuation. Pancreas: Unremarkable. Adrenal glands: Unremarkable. Kidneys: The contrast enhanced kidneys demonstrate cortical atrophy and are without hydronephrosis. T he kidneys enhance symmetrically. A 13 mm cyst is noted on the right. Abdominal vasculature: The abdominal aorta is normal in course and caliber noting moderate to advance d atherosclerotic calcification. A right femoral central venous catheter is in place. The mesenteric vessels are patent. Stomach and bowel: A small hiatal hernia is noted, with infiltration seen around the gastroesophageal junction. There is pneumatosis intestinalis of the cecum and ascending colon with adjacent mesenteri c venous gas. Mild wall thickening and mucosal hyperemia is suggested involving the left colon with f aint surrounding infiltration. There is also mild wall thickening and hyperemia seen throughout the s mall bowel loops. No bowel obstruction is seen. The appendix is well-visualized and normal. Peritoneum: No intraperitoneal free air is seen below the diaphragm. There is no abdominal ascites. T here is a fat-containing umbilical hernia. Lymphadenopathy: None. Pelvic viscera: The bladder is decompressed and a Serrato catheter and not well evaluated. The uterus a nd adnexa are normal as imaged. There is a fat-containing left groin hernia. Skeletal structures: The skeletal structures are osteopenic. There is mild lumbosacral spondylosis. L umbosacral spine, bony pelvis, and proximal femora appear intact. No lytic or blastic lesions are see n. Sclerotic change is noted in the pubic symphysis. IMPRESSION: 1. There is no evidence of pulmonary embolus in the main, lobar, or segmental pulmonary arteries. 2. Cardiomegaly with evidence of fluid overload/congestive change. 3. There are numerous acute bilateral anterior rib fractures as above, a few of which are comminuted and displaced. 4. There is trace right anterior pneumothorax. 5. Airspace opacities in the right upper lobe likely represent atelectasis. 6. There is evidence of a nonspecific colitis of the left colon which may be ischemic. 7. There is pneumatosis intestinalis of the cecum and ascending colon, with concomitant mesenteric ve nous and portal venous gas. Ischemic bowel is not excluded. 8. Mild wall thickening and mucosal hyperemia is also suggested involving small bowel loops. This may be related to hypovolemia/hypotension. 9. No intraperitoneal free air is identified. 10. There is nonspecific infiltration identified around the gastroesophageal junction. 11 There are at least 2 pulmonary nodules which measure up to 8 mm. These can be followed as per the Fleischner criteria. See below. 12. Additional findings as above. Please refer to below summary of Fleischner criteria recommendations for follow-up of incidental CT n odules (Alfredo Resendiz, Guidelines for management of small pulmonary nodules detected on CT scans: A sta tement from the Fleischner Society, Radiology 237: [phone].) SOLID NODULES Solitary nodule size: <6 mm * low risk patients: no follow-up needed * high risk patients: optional CT at 12 months Solitary nodule size: 6-8 mm * low risk patients: follow-up at 6-12 months, then consider further follow-up at 18-24 months * high risk patients: initial follow-up CT at 6-12 months and then at 18-24 months if no change Solitary nodule size: >8 mm * either low or high risk patients - consider follow-up CT at 3 months, and/or CT-PET, and/or biopsy Multiple nodules size: <6 mm * low risk patients: no routine follow-up * high risk patients: optional CT at 12 months Multiple nodules size: 6-8 mm * low risk patients: follow-up at 3-6 months, then consider further follow-up at 18-24 months * high risk patients: follow-up at 3-6 months, then at 18-24 months if no change Multiple nodules size: >8 mm * low risk patients: follow-up at 3-6 months, then consider further follow-up at 18-24 months * high risk patients: follow-up at 3-6 months, then at 18-24 months if no change Note: newly detected indeterminate nodule in persons 35 years of age or older. * low risk patients: minimal or absent history of smoking and/or other known risk factors * high risk patients: history of smoking or of other known risk factors (e.g. first degree relative with lung cancer, or exposure to asbestos, radon, uranium) * if a nodule up to 8 mm is partly solid or is ground glass further follow-up is required after 24 m onths to exclude possible slow growing adenocarcinoma (FARZAD) SUBSOLID NODULES Solitary pure ground-glass nodule * nodule size <6 mm - no CT follow-up required * nodule size >=6 mm - follow-up CT at 6-12 months, then every 2 years until 5 years Solitary part-solid nodule * nodule size <6 mm - no CT follow-up required * nodule size >=6 mm - follow-up CT at 3-6 months. If unchanged, and solid component remains <6 mm, then annual follow-up for 5 years Multiple subsolid nodules * nodule size <6 mm - follow-up CT at 3-6 months, consider further follow-up at 2 and 4 years if sta ble * nodule size >=6 mm - follow-up CT at 3-6 months, subsequent management based on the most suspiciou s nodule(s) ACT 112: Negative or not required by law. Electronically signed by: Nahum Jean M.D. 08/12/2022 12:43 AM
[2022-08-12 01:52] LABS: Adenovirus PCR Not Detected (NotDetected); Bordetella parapertussis PCR Not Detected (NotDetected); Bordetella pertussis PCR Not Detected (NotDetected); Chlamydia pneumoniae PCR Not Detected (NotDetected); Coronavirus 229E PCR Not Detected (NotDetected); Coronavirus CoV-2 (COVID19)PCR Not Detected (NotDetected); Coronavirus HKU1 PCR Not Detected (NotDetected); Coronavirus NL63 PCR Not Detected (NotDetected); Coronavirus OC43PCR Not Detected (NotDetected); Human Metapneumovirus PCR Not Detected (NotDetected); Influenza A PCR Not Detected (NotDetected); Influenza B PCR Not Detected (NotDetected); Mycoplasma pneumoniae PCR Not Detected (NotDetected); Parainfluenza Virus 1 PCR Not Detected (NotDetected); Parainfluenza Virus 2 PCR Not Detected (NotDetected); Parainfluenza Virus 3 PCR Not Detected (NotDetected); Parainfluenza Virus 4 PCR Not Detected (NotDetected); Respiratory Syncytial VirusPCR Not Detected (NotDetected); Rhinovirus/Enterovirus PCR Not Detected (NotDetected)
--- NOTE | 2022-08-12 02:03 | Billing Data ---
Date of Service August 12, 2022 Coding Level of Care Code Critical Care 1st - mins
[2022-08-12] MEDS ORDERED: ALBUT/IPRATROP 3MG/0.5MG NEB 3 ML VIAL INH PRN (03:41)
[2022-08-12 03:50] LABS: iSTAT Allen Test Pass; iSTAT Art Bld Gas pCO2 Correct 48 mmHg (35-46); iSTAT Art Bld Gas pH Corrected 7.335 (7.35-7.45); iSTAT Arterial Blood Gas HCO3 27 meg/L (19-24); iSTAT Arterial Blood Gas pCO2 58 mmHg (35-46); iSTAT Arterial Blood Gas pH 7.28 (7.35-7.45); iSTAT Arterial Blood Gas pO2 188 mmHg (80-95); iSTAT Arterial Blood Gas pO2 C 167; iSTAT Carbon Dioxide 28 mmol/L (24-31); iSTAT FiO2 50 %; iSTAT Hematocrit 43 % (37-47); iSTAT Hemoglobin 14.6 g/dl (12.0-16.0); iSTAT Potassium 3.9 mmol/L (3.3-5.0); iSTAT Site R Radial; iSTAT Sodium 133 mmol/L (135-144)
[2022-08-12] MEDS ORDERED: STAT IV Infusion **Titration per Protocol STA (03:55)
[2022-08-12] MEDS ORDERED: MIDAZOLAM HCL 125 MG/250 ML BAG IV PRN (03:55)
[2022-08-12] MEDS ORDERED: MIDAZOLAM BOLUS FROM BAG IV PRN (03:55)
[2022-08-12 04:34] LABS: Hematocrit (blood only) 43.2 % (37.0-47.0); Hemoglobin 14.3 g/dl (12.0-16.0); Mean Corpuscular Hemoglobin 28.4 pg (25.0-34.0); Mean Corpuscular Hgb Conc 33.1 g/dL (32.0-36.0); Mean Corpuscular Volume 85.7 fL (80.0-100.0); Mean Platelet Volume 8.8 fL (9.4-12.4); Platelet Count 330 K/uL (130-400); RDW Coefficient of Variation 13.1 % (11.5-14.5); RDW Standard Deviation 40.9 fL (36.4-46.3); Red Blood Count 5.04 M/uL (4.20-5.40); White Blood Count 23.85 K/ul (4.8-10.8)
--- NOTE | 2022-08-12 04:42 | Procedure Note ---
Procedure Note Date of Service August 12, 2022 Note ARTERIAL LINE PROCEDURE NOTE: Procedure: Arterial Line Placement Proceduralist: Jose GLASS ([facility]) Attending: Dr. Salazar Indication: Monitoring on Pressors frequent blood draws Anesthesia: [x]None Emergent Consent was implied following resuscitation and full code with need for vasopressors did discuss procedure with at bedside while in EMD. Her verbalized he understood need vs. risks. Allens test was performed to ensure adequate perfusion. Patients RIGHT wrist was prepped and draped in the usual sterile fashion. Ultrasound guidance was used to aid needle placement. A 20g Arrow arterial line was introduced into the RIGHT artery. Catheter was threaded, and the needle was removed with appropriate blood return. Good waveform was observed. The patient tolerated the procedure well. Line was secured with suture and dressed with tegaderm Blood Loss: Minimal Complications: No immediate Procedural Ultrasound Guidance: Procedure Date: 08/12/22 Indication: Direct Visualization with arterial line placment Proceduralist: Jose GLASS ([facility]) Attending: Dr. Salazar Artery Identified: YES Needle confirmed in Artery with ultrasound: YES Complications: NONE Patient tolerated procedure: WELL Coding CPT Codes Tubes, Drains, and Vasc Access - Tubes, Drains, and Vasc Access: [id number] Place Catheter In Artery ([id number]) Tubes, Drains, and Vasc Access - Tubes, Drains, and Vasc Access: [id number] Ultrasound Guidance For Vascular ([id number]) [facility] Procedure Codes (Charges) Tubes, Drains, and Vasc Access Procedure 1: Tubes, Drains, and Vasc Access: [id number] Place Catheter In Artery Procedure 2: Tubes, Drains, and Vasc Access: [id number] Ultrasound Guidance For Vascular
[2022-08-12] MEDS ORDERED: MIDAZOLAM BOLUS FROM BAG IV ONE (04:46)
[2022-08-12 04:50] LABS: INR 1.1 (0.9-1.1); Partial Thromboplastin Ratio 0.9; Partial Thromboplastin Time 25.3 Seconds (21.0-31.0); Prothrombin Time 11.8 Seconds (9.0-12.0)
[2022-08-12 04:53] LABS: Albumin Level 3.6 gm/dl (3.4-5.0); Bilirubin,Total 0.3 mg/dl (0.2-1.0)
[2022-08-12 04:57] LABS: Basophils # (auto) 0.12 K/uL (0-0.2); Basophils % (auto) 0.5 %; Eosinophils # (auto) 0.05 K/uL (0-0.50); Eosinophils % (auto) 0.2 %; Immature Granulocytes # (auto) 0.63 K/uL (0.01-0.20); Immature Granulocytes % (auto) 2.6 %; Lymphocytes # (auto) 1.47 K/uL (1.2-3.4); Lymphocytes % (auto) 6.2 %; Monocytes # (auto) 1.41 K/uL (0.11-0.59); Monocytes % (auto) 5.9 %; Neutrophils # (auto) 20.17 K/uL (1.40-6.50); Neutrophils % (auto) 84.6 %
[2022-08-12 04:59] LABS: Phosphorus 4.9 mg/dl (2.5-4.9); Total Protein 5.9 gm/dl (6.0-8.3)
[2022-08-12 05:06] LABS: Troponin I High Sensitivity 350.2 pg/ml (0-14)
[2022-08-12 05:18] LABS: Anion Gap 11 (3-11); Calcium 7.8 mg/dl (8.5-10.1); Carbon Dioxide 29 mmol/L (21-32); Chloride 95 mmol/L (98-107); Potassium 3.6 mmol/L (3.5-5.1); Sodium 135 mmol/L (136-145)
[2022-08-12 05:20] LABS: BUN Creatinine Ratio 15.8 (10-20); Blood Urea Nitrogen 18 mg/dl (6-23); Est GFR (African American) 56.4 ml/min; Est GFR (Non-African American) 48.7 ml/min; Glucose 184 mg/dl (70-99(Fasting))
[2022-08-12] MEDS: HEPARIN SOD 5,000 UNIT/0.5 ML VIAL SQ SCH ×3 (05:41→21:46)
[2022-08-12] MEDS ORDERED: CARBOHYDRATES FOR HYPOGLYCEMIA PO PRN (05:47)
[2022-08-12] MEDS ORDERED: GLUCAGON FOR INJ 1 MG VIAL SQ PRN (05:47)
[2022-08-12] MEDS ORDERED: GLUCOSE 40% GEL 15 GM TUBE PO PRN (05:47)
[2022-08-12] MEDS ORDERED: GLUCOSE 10 TAB/TUBE PO PRN (05:47)
[2022-08-12 06:29] LABS: Appearance Urine Clear (Clear); Bacteria Urine Automated Negative (Negative); Bilirubin Urine Negative (Negative); Blood Urine 1+ (Negative); Color Urine Yellow; Epithelial Cell Urine Auto >30 /lpf (0-5); Glucose Urine UA Negative (Negative); Ketones Urine Negative (Negative); Leukocyte Esterase Urine Negative (Negative); Nitrite Urine Negative (Negative); Protein Urine 2+ (Negative); Specific Gravity Urine > 1.045 (1.000-1.030); Urobilinogen Urine Negative (Negative)
[2022-08-12] MEDS: INSULIN ASPART PER UNIT SC SCH ×3 (06:45→18:35)
--- NOTE | 2022-08-12 06:45 | Surgery Consultation ---
Date of Consultation August 12, 2022 Assessment & Plan (1) Cardiac arrest with ventricular fibrillation: Patient has been admitted to the ICU due to cardiopulmonary arrest requiring mechanical ventilation. General surgery has been consulted due to concern for bowel ischemia noted on imaging at time of presentation. At the present time the patient's abdomen is nondistended Elevated lactic acid level noted at time of admission has improved with resuscitative measures At the present time would recommend continued resuscitative measures that are in place in the intensive care unit At the present time it is unlikely the patient would benefit from an exploratory laparotomy particularly since we do not know what her neurologic function is following her cardiac arrest We will continue to follow along while the patient is hospitalized Supervising Physician Co-Signing Physician Notes I personally saw and evaluated the patient with Cyrus Becerril PA-C and agree with the assessment and plan. 71-year-old female status post cardiopulmonary arrest with successful resuscitation, CT findings concerning for mesenteric ischemia CT images and results were personally viewed by myself, she does have some portal venous gas as well as pneumatosis of her cecum and ascending colon At this point her neurologic function is unclear and she would likely not tolerate an exploration at this point The etiology of this is likely due to her cardiac arrest and low flow state causing ischemia to her abdomen No plans for surgery at this point, her lactate has improved with resuscitation We will follow we will follow the patient History of Present Illness Reason for Consultation: Concern for bowel ischemia Attending Physician: Matthieu Oconnor MD History of Present Illness This is a 71-year-old female who presented to [facility] emergency department secondary to cardiopulmonary arrest at home. At the time of my evaluation of the patient the patient was unresponsive on a ventilator. The entire history was obtained from review of records as well as discussion with the nursing and clinical staff in the ICU. This patient suffered a cardiopulmonary arrest at home. EMS was summoned and patient did require defibrillation as well as administration of medications including epinephrine and amiodarone at home. She presented to the emergency department where she was immediately intubated.At time of arrival the attending emergency room physician noted patient was unresponsive and had a Glascow coma score of 3. Agonal breathing was noted. Patient was noted to be hypotensive with a normal heart rate. She was resuscitated with IV fluids and she was given magnesium and bicarbonate. Due to the patient's hypotension she was initiated on Levophed. Since arrival to the hospital the patient has had labs and imaging including the following: Chest x-ray on 08/11/2022 showed no acute cardiopulmonary abnormalities. An endotracheal tube was in place. Bilateral rib fractures were noted on the anterior surface. CT scan of the chest was performed on 08/11/2022 that showed no evidence of pulmonary emboli. Bilateral anterior rib fractures were noted. There is a trace right anterior pneumothorax. A CT scan of the head was performed on 08/11/2022 that showed no evidence of hemorrhage, mass- effect, or acute stroke. CT scan of the abdomen pelvis on 08/11/2022 was performed which showed nonspecific colitis of the left colon which is felt to potentially be ischemic. Pneumatosis intestinalis of the cecum and ascending colon were noted. There was mesenteric venous and portal gas noted. No intraperitoneal free air was noted. Labs include a CBC were white blood cell count is elevated 23.8. Hemoglobin and hematocrit are both within normal range as was the platelet count. Chemistry profile shows sodium is 135 with a normal potassium. BUN and creatinine are both within the normal range. It is nowhere the mention that at time of presentation the patient's lactic acid was elevated at 9.6 and this has improved to 2.7 with resuscitative measures. The patient did have viral serologies checked all of which were negative including COVID, RSV, and influenza. I discussed with the nursing and clinical staff in the ICU. Since arrival to the ICU the patient has remained on Levophed but they have been able to slowly wean this down and she has not been requiring any escalated doses. She did have a lactic acid level that was markedly elevated at time of admission but this has improved with resuscitation measures as noted above. Patient was sedated on the ventilator but the sedation has been discontinued and patient has been unresponsive since that time. Nursing staff notes that the patient has had a small bowel movement this did not appear bloody or melanotic. At the time of my interview the patient was lying in bed. As noted by nurses sedation has been turned off the patient was unresponsive. Allergies Allergy/AdvReac Type Severity Reaction Status Date / Time Penicillins Allergy Intermediate Rash Verified 08/11/22 22:59 codeine AdvReac Intermediate Gastrointestinal Verified 08/11/22 22:59 Upset [id number] Reductase AdvReac Intermediate body aches Verified 08/11/22 22:59 Inhibitor Home Medications Medication Instructions Recorded Confirmed Type esomeprazole magnesium 40 mg 40 mg PO DAILY 08/01/21 08/11/22 History capsule,delayed release hydrochlorothiazide 25 mg tablet 25 mg PO DAILY 08/01/21 08/11/22 History lamotrigine 150 mg tablet 150 mg PO HS 08/01/21 08/11/22 History (Lamictal) lorazepam 1 mg tablet 1 mg PO BID PRN Anxiety 08/01/21 08/11/22 History metoprolol succinate 200 mg 200 mg PO DAILY 08/01/21 08/11/22 History capsule sprinkle, ext. release 24 hr paroxetine HCl 30 mg tablet 60 mg PO QAM 08/01/21 08/11/22 History quetiapine 50 mg tablet 50 mg PO HS 08/01/21 08/11/22 History ergocalciferol (vitamin D2) 1,250 50,000 unit PO WK 08/11/22 08/11/22 History mcg (50,000 unit) capsule (Vitamin D2) olmesartan 5 mg tablet 5 mg PO HS 08/11/22 08/11/22 History simvastatin 20 mg tablet 60 mg PO HS 08/11/22 08/11/22 History Patient History Medical History Bipolar 1 disorder Constipated Fatigue HTN (hypertension) Hyperlipemia IBS (irritable bowel syndrome) Migraine Reflux esophagitis Snoring Family History Father Hypertension Stroke Cancer skin cancer Alcohol abuse Glaucoma Mother Alcohol abuse Grandmother (Maternal) Cancer Hypertension Social History Smoking Status: Unknown if ever smoked Hx Alcohol Use: Yes Alcohol type: hard liquor Alcohol Intake Frequency: 4 or More x per/Week marital status: Current Living Situation: Spouse Review of Systems Review of Systems: All systems reviewed & are unremarkable except as noted in HPI & below and Unobtainable due to cognitive status Physical Exam Constitutional: + obese Patient unresponsive on a vent Eyes: + conjunctival abnormality ENMT: Ears: no external ear abnormality Neck: trachea midline Respiratory: Breath sounds are present bilaterally and aided by ventilator Cardiovascular: Rate/Rhythm: regular rate and regular rhythm Pedal pulses and left radial pulse are not palpable. Extremities however are nonmottled. Patient does have a radial art line in the right radial artery Gastrointestinal (Abdomen): Abdomen is soft and nonrigid. There are no abdominal scars indicating previous surgeries. Bowel sounds are absent. Musculoskeletal: Feet are cool but are nonmottled Skin: no rashes Neurologic: Patient is unresponsive on ventilator Results & Data ([facility]) Vital Signs (Past 12 Hours) Vital Signs Temp Pulse Resp BP Pulse Ox O2 Del Method FiO2 08/12/22 05:51 128/75 08/12/22 05:51 33.2 C L 47 L 18 97 08/12/22 05:50 33.2 C L 47 L 18 97 08/12/22 05:46 138/79 08/12/22 05:46 33.2 C L 48 L 16 97 08/12/22 05:41 33.2 C L 49 L 18 97 08/12/22 05:41 132/77 08/12/22 05:40 33.2 C L 48 L 16 08/12/22 05:35 133/81 08/12/22 05:35 33.2 C L 49 L 18 08/12/22 05:30 33.2 C L 48 L 18 97 08/12/22 05:30 126/82 08/12/22 05:25 117/73 08/12/22 05:25 33.1 C L 50 L 16 08/12/22 05:21 33.1 C L 49 L 18 97 08/12/22 05:21 119/74 08/12/22 05:20 33.1 C L 49 L 18 08/12/22 05:15 122/78 08/12/22 05:15 33.1 C L 49 L 18 08/12/22 05:11 33.1 C L 48 L 18 98 08/12/22 05:11 129/80 08/12/22 05:10 33.1 C L 48 L 19 08/12/22 05:06 33.0 C L 47 L 18 99 08/12/22 05:00 33.0 C L 48 L 18 98 08/12/22 05:00 133/79 08/12/22 04:55 33.0 C L 48 L 19 100 08/12/22 04:55 141/87 H 08/12/22 04:50 33.0 C L 48 L 18 08/12/22 04:50 147/88 H 08/12/22 04:46 147/87 H 08/12/22 04:46 33.0 C L 48 L 18 99 08/12/22 04:41 157/93 H 08/12/22 04:41 32.9 C L 47 L 18 99 08/12/22 04:40 32.9 C L 48 L 18 99 08/12/22 04:36 32.9 C L 48 L 18 100 08/12/22 04:36 160/91 H 08/12/22 04:31 32.9 C L 48 L 18 100 08/12/22 04:31 166/93 H 08/12/22 04:30 32.9 C L 47 L 18 99 08/12/22 04:26 32.9 C L 47 L 18 99 08/12/22 04:26 164/92 H 08/12/22 04:21 32.9 C L 47 L 18 99 08/12/22 04:21 164/92 H 08/12/22 04:20 32.9 C L 47 L 18 100 08/12/22 04:16 32.8 C L 48 L 18 08/12/22 04:16 156/90 H 08/12/22 04:12 161/92 H 08/12/22 04:12 32.8 C L 49 L 18 08/12/22 04:10 32.8 C L 51 L 19 08/12/22 03:47 44 L 18 100 40 08/12/22 06:10 Mechanical Vent 08/12/22 05:59 33.2 C L 20 97 Mechanical Vent 08/12/22 05:00 33.2 C L 08/12/22 04:00 99 Mechanical Vent 08/12/22 04:00 0.35 08/12/22 03:41 48 L 08/12/22 03:41 33.0 C L 32 H 08/12/22 04:23 100 Mechanical Vent 0.40 08/12/22 02:00 48 L 19 120/71 100 Mechanical Vent 08/12/22 01:55 48 L 18 130/64 100 Mechanical Vent 08/12/22 01:50 48 L 20 119/67 100 Mechanical Vent 08/12/22 01:45 48 L 20 124/66 100 Mechanical Vent 08/12/22 01:40 48 L 19 116/66 100 Mechanical Vent 08/12/22 01:35 48 L 19 121/62 100 Mechanical Vent 08/12/22 01:30 47 L 18 113/61 100 Mechanical Vent 08/12/22 01:25 19 114/65 100 Mechanical Vent 08/12/22 01:20 48 L 19 112/60 100 Mechanical Vent 08/12/22 01:15 47 L 20 112/57 L 100 Mechanical Vent 08/12/22 01:10 48 L 18 113/61 100 Mechanical Vent 08/12/22 01:05 48 L 18 108/62 100 Mechanical Vent 08/12/22 01:00 48 L 20 117/61 100 Mechanical Vent 08/12/22 00:55 48 L 18 110/62 99 Mechanical Vent 08/12/22 00:50 48 L 19 109/60 99 Mechanical Vent 08/12/22 00:45 48 L 25 H 99/57 L 100 Mechanical Vent 08/12/22 00:40 49 L 25 H 102/58 L 100 Mechanical Vent 08/12/22 00:35 49 L 18 99/58 L 100 Mechanical Vent 08/12/22 00:30 49 L 21 100/57 L 100 Mechanical Vent 08/12/22 00:25 49 L 21 102/56 L 100 Mechanical Vent 08/12/22 00:20 50 L 21 101/55 L 100 Mechanical Vent 08/12/22 00:15 52 L 21 93/46 L 100 Mechanical Vent 08/12/22 00:10 52 L 21 91/51 L 100 Mechanical Vent 08/12/22 00:08 51 L 21 94/47 L 99 Mechanical Vent 08/11/22 23:26 68 22 82/38 L 100 Mechanical Vent 08/11/22 23:20 66 13 81/46 L 100 Mechanical Vent 08/11/22 23:15 70 14 83/34 L 100 Mechanical Vent 08/11/22 23:10 82 14 65/40 L 100 Mechanical Vent 08/11/22 23:05 84 14 92/52 L 100 Mechanical Vent 08/11/22 23:00 84 14 69/52 L 100 Mechanical Vent 08/11/22 22:55 87 15 67/50 L 100 Mechanical Vent 08/11/22 22:50 80 16 77/37 L 100 Mechanical Vent 08/11/22 22:46 80 16 68/52 L 100 Mechanical Vent 08/11/22 22:42 85 16 83/47 L 100 Mechanical Vent 08/11/22 22:35 72 14 63/40 L 100 Mechanical Vent 08/11/22 22:30 72 14 79/49 L 90 Ambu-Bag 08/11/22 22:25 77 12 80/37 L 90 Ambu-Bag 08/11/22 22:20 23 100 100 08/11/22 22:23 82 25 H 80/37 L PG Care Time/CCT Total # of Minutes Spent Total Time Spent with Patient: Total time spent is greater than 50% in coordination of care (as documented) at patient's floor/unit and/or counseling patient: Coding Level of Care Code 96014 INT INP/OBS CARE MIN Diagnoses Cardiac arrest with ventricular fibrillation I46.9; I49.01
[2022-08-12] MEDS: ICU ELECTROLYTE REPLACEMENT PROTOCOL SCH ×2 (06:48→18:45)
[2022-08-12] MEDS ORDERED: POTASSIUM CHLORIDE 20 MEQ/15 ML UDC PO STA ×3 (06:48→18:42)
[2022-08-12] MEDS ORDERED: PNEUMOCOCCAL Polysaccharide Vaccine 25mcg/0.5mL vial/Syr IM ONE (07:00)
[2022-08-12] MEDS ORDERED: Flu Vaccine-High Dose (Fluzone-HD) PF 65+ 0.7mL SYR IM ONE (07:00)
--- NOTE | 2022-08-12 07:21 | Critical Care Progress Note ---
Date of Service August 12, 2022 Assessment & Plan (1) Cardiopulmonary arrest with successful resuscitation: Plan: Plan Reason Critically Ill: Patient s/p cardiac arrest that appears to have been precipitated by respiratory arrest. Patient arrives to ICU with electrolyte derangements, lactic acidosis, respiratory/metabolic acidosis intubated and sedated. Arrival to ICU at 0240. Continue supportive care, follow neurological prognostication, and organ dysfunction. Neuro -Seizure like activity, Sedated for Mechanical Ventilation, concern for anoxic injury, Bipolar/Anxiety CAM ICU: Negative Patient arrived without spontaneous movement and agonal breathing in the EMD - have not appreciated any purposeful movement at this time and no localization/withdrawal to pain GCS 3T Neurological exam with sedation held -- positive myoclonic jerk activity in the face, otherwise no continuous seizure activity noted, EEG to r/o non-convulsive seizures - neuro consult. Will continue propofol. Neuroprognostication in 48 hours if no improvement Goal temperature 34-36 repeat electrolytes - Patient is at this temperature without intervention Continue Seroquel as able, Lamotrigine as able Cardiac -s/p Cardiac Arrest with ROSC, Bradycardia, Shock, Elevated HScTNI Shock undifferentiated at this time but likely component of sepsis/hypovolemia and can not rule out cardiogenic at this time VFIB arrest appears to have been precluded by respiratory distress- no history of CAD reported by family Troponin elevation likely demand at this time following resuscitation and defibrillation- ECG improved following improvement in acidosis and perfusion- no STEMI on ECG Continue Levophed for MAPS >65 Bradycardia - possibly related to sedation and hypothermia- eval while off sedation and while warming Hold ARB and BB 2D ECHO in AM Respiratory -Hypercarbic respiratory failure requiring intubation and mechanical ventilation, Rib Fractures ARDSnet ventilatory strategy low PEEP high FIO2 Acidosis improving and CO2 normalizing Continue supportive care eval small pthx with AM CXR daily spont trials as able GI -Pneumatosis possible ischemic bowel, NON- Specific enceliitis, Transaminitis NPO Lactate is improving with resuscitation OGT placed to LIWS - Appreciate General Surgery consultation Non-specific enteritis- continue with volume resusc follow- no risk factors reported for c-dif Elevated liver enzymes in setting of septic shock and hypoperfusion - INR normal RENAL/LYTES -Respiratory and Metabolic Acidosis, Lactic Acidosis, Hypokalemia, - Continue with volume resuscitation and Vasopressor to maintain MAP >65 and UO > 30ml/kg - Replete K- follow with hypothermia - Lactic acidosis improving - No acute needs Serrato to gravity ENDO -Hyperglycemia without dx of diabetes ICU hyperglycemic protocol HEME - No acute needs ID -Sepsis= source abdomen/sinusitis source sinus, GI - Continue broad spectrum abx - follow cultures LINES/IV ACCESS - PIV, Right Femoral Central Line, Arterial line, ETT, OGT, Serrato Continue use of these lines DVT PROPHYLAXIS - SCDS, Heparin DISPO: ICU while intubated and sedated (2) Hyperlipemia: (3) Shock: (4) Moderate obstructive sleep apnea: (5) IBS (irritable bowel syndrome): (6) Bipolar 1 disorder: (7) HTN (hypertension): (8) Cardiac arrest with ventricular fibrillation: (9) Reflux esophagitis: Admission and Anticipated Discharge Date Admission Date: August 12, 2022 Supervising Physician Co-Signing Physician Notes Dr. Salguero was resident physician during care of patient. I separately evaluated patient for [place] portions of the history and the exam. I was present during the critical portion of medical decision making, and I discussed the case with the resident. I generally agree with the findings and plan. Discussed with general surgery. Reviewed bedside EEG, patient showing clinical signs of significant and frequent myoclonic jerks and possible seizure-like activity, not believe this represents status epilepticus and the myoclonic jerking is suppressed with propofol. These findings do represent very poor prognostic indicators. Had extensive discussion with at patient's bedside. Given significant neurological injury and according with their prior discussions we have changed the patient's CODE STATUS to be DNR in event of cardiac arrest. He has additional family, daughter and patient's brother who will be presenting to bedside later today and tomorrow. I feel the patient has suffered an injury that would be inconsistent with independent living and high functional status of being able to complete activities of daily living independently. Also discussed possibility of herniation syndrome. Given high likelihood of severe functional deficit if patient progresses towards herniation syndrome and were to survive patient prefers not to treat for an impending herniation syndrome and allowing natural dying process to continue. did confirm clinical history is most consistent with respiratory arrest and hypoxemia: Patient complaining of inability to breathe and audible wheezing prior to cardiac arrest. I have personally spent 70 minutes of critical care time in the direct management of this patient. This is a life/limb threatening event. This includes time spent evaluating patient, direct bedside care, chart review, placing orders, interpretation of diagnostic studies, discussion with consultants, patient, and/or family members regarding treatment decisions, as well as other required patient management activities. This time is exclusive of all separately billable procedures, and teaching time and separate from and in addition to any other critical care service time. Subjective Intubated Physical Exam Physical Exam: Gen: intubated and sedated HEENT: AT NC Resp: ventilating appropriately CV: clinically well perfused GI: non-distended : Serrato in place MSK: no gross deformities Psych: intubated and sedated Neuro: sedation removed for neurological exam - positive for facial myoclonic jerk activity, non-continuous Results & Data Results & Data ([facility]) Vital Signs (Past 12 Hours) Vital Signs Temp Pulse Resp BP Pulse Ox O2 Del Method FiO2 08/12/22 05:51 128/75 08/12/22 05:51 33.2 C L 47 L 18 97 08/12/22 05:50 33.2 C L 47 L 18 97 08/12/22 05:46 138/79 08/12/22 05:46 33.2 C L 48 L 16 97 08/12/22 05:41 33.2 C L 49 L 18 97 08/12/22 05:41 132/77 08/12/22 05:40 33.2 C L 48 L 16 08/12/22 05:35 133/81 08/12/22 05:35 33.2 C L 49 L 18 08/12/22 05:30 33.2 C L 48 L 18 97 08/12/22 05:30 126/82 08/12/22 05:25 117/73 08/12/22 05:25 33.1 C L 50 L 16 08/12/22 05:21 33.1 C L 49 L 18 97 08/12/22 05:21 119/74 08/12/22 05:20 33.1 C L 49 L 18 08/12/22 05:15 122/78 08/12/22 05:15 33.1 C L 49 L 18 08/12/22 05:11 33.1 C L 48 L 18 98 08/12/22 05:11 129/80 08/12/22 05:10 33.1 C L 48 L 19 08/12/22 05:06 33.0 C L 47 L 18 99 08/12/22 05:00 33.0 C L 48 L 18 98 08/12/22 05:00 133/79 08/12/22 04:55 33.0 C L 48 L 19 100 08/12/22 04:55 141/87 H 08/12/22 04:50 33.0 C L 48 L 18 08/12/22 04:50 147/88 H 08/12/22 04:46 147/87 H 08/12/22 04:46 33.0 C L 48 L 18 99 08/12/22 04:41 157/93 H 08/12/22 04:41 32.9 C L 47 L 18 99 08/12/22 04:40 32.9 C L 48 L 18 99 08/12/22 04:36 32.9 C L 48 L 18 100 08/12/22 04:36 160/91 H 08/12/22 04:31 32.9 C L 48 L 18 100 08/12/22 04:31 166/93 H 08/12/22 04:30 32.9 C L 47 L 18 99 08/12/22 04:26 32.9 C L 47 L 18 99 08/12/22 04:26 164/92 H 08/12/22 04:21 32.9 C L 47 L 18 99 08/12/22 04:21 164/92 H 08/12/22 04:20 32.9 C L 47 L 18 100 08/12/22 04:16 32.8 C L 48 L 18 08/12/22 04:16 156/90 H 08/12/22 04:12 161/92 H 08/12/22 04:12 32.8 C L 49 L 18 08/12/22 04:10 32.8 C L 51 L 19 08/12/22 03:47 44 L 18 100 40 08/12/22 06:10 Mechanical Vent 08/12/22 05:59 33.2 C L 20 97 Mechanical Vent 08/12/22 05:00 33.2 C L 08/12/22 04:00 99 Mechanical Vent 08/12/22 04:00 0.35 08/12/22 03:41 48 L 08/12/22 03:41 33.0 C L 32 H 08/12/22 04:23 100 Mechanical Vent 0.40 08/12/22 02:00 48 L 19 120/71 100 Mechanical Vent 08/12/22 01:55 48 L 18 130/64 100 Mechanical Vent 08/12/22 01:50 48 L 20 119/67 100 Mechanical Vent 08/12/22 01:45 48 L 20 124/66 100 Mechanical Vent 08/12/22 01:40 48 L 19 116/66 100 Mechanical Vent 08/12/22 01:35 48 L 19 121/62 100 Mechanical Vent 08/12/22 01:30 47 L 18 113/61 100 Mechanical Vent 08/12/22 01:25 19 114/65 100 Mechanical Vent 08/12/22 01:20 48 L 19 112/60 100 Mechanical Vent 08/12/22 01:15 47 L 20 112/57 L 100 Mechanical Vent 08/12/22 01:10 48 L 18 113/61 100 Mechanical Vent 08/12/22 01:05 48 L 18 108/62 100 Mechanical Vent 08/12/22 01:00 48 L 20 117/61 100 Mechanical Vent 08/12/22 00:55 48 L 18 110/62 99 Mechanical Vent 08/12/22 00:50 48 L 19 109/60 99 Mechanical Vent 08/12/22 00:45 48 L 25 H 99/57 L 100 Mechanical Vent 08/12/22 00:40 49 L 25 H 102/58 L 100 Mechanical Vent 08/12/22 00:35 49 L 18 99/58 L 100 Mechanical Vent 08/12/22 00:30 49 L 21 100/57 L 100 Mechanical Vent 08/12/22 00:25 49 L 21 102/56 L 100 Mechanical Vent 08/12/22 00:20 50 L 21 101/55 L 100 Mechanical Vent 08/12/22 00:15 52 L 21 93/46 L 100 Mechanical Vent 08/12/22 00:10 52 L 21 91/51 L 100 Mechanical Vent 08/12/22 00:08 51 L 21 94/47 L 99 Mechanical Vent 08/11/22 23:26 68 22 82/38 L 100 Mechanical Vent 08/11/22 23:20 66 13 81/46 L 100 Mechanical Vent 08/11/22 23:15 70 14 83/34 L 100 Mechanical Vent 08/11/22 23:10 82 14 65/40 L 100 Mechanical Vent 08/11/22 23:05 84 14 92/52 L 100 Mechanical Vent 08/11/22 23:00 84 14 69/52 L 100 Mechanical Vent 08/11/22 22:55 87 15 67/50 L 100 Mechanical Vent 08/11/22 22:50 80 16 77/37 L 100 Mechanical Vent 08/11/22 22:46 80 16 68/52 L 100 Mechanical Vent 08/11/22 22:42 85 16 83/47 L 100 Mechanical Vent 08/11/22 22:35 72 14 63/40 L 100 Mechanical Vent 08/11/22 22:30 72 14 79/49 L 90 Ambu-Bag 08/11/22 22:25 77 12 80/37 L 90 Ambu-Bag 08/11/22 22:20 23 100 100 08/11/22 22:23 82 25 H 80/37 L Laboratory Results 08/12/22 08/12/22 08/12/22 Range/Units 06:09 06:05 05:10 WBC (4.8-10.8) K/ul RBC (4.20-5.40) M/uL Hgb (12.0-16.0) g/dl POC Hgb (12.0-16.0) g/dl Hct (37.0-47.0) % POC Hct (37-47) % MCV (80.0-100.0) fL MCH (25.0-34.0) pg MCHC (32.0-36.0) g/dL RDW Std Deviation (36.4-46.3) fL RDW Coeff of Foster (11.5-14.5) % Plt Count (130-400) K/uL MPV (9.4-12.4) fL Immature Gran % (Auto) % Neut % (Auto) % Lymph % (Auto) % [facility] % (Auto) % Eos % (Auto) % Baso % (Auto) % Neut # (Auto) (1.40-6.50) K/uL Lymph # (Auto) (1.2-3.4) K/uL [facility] # (Auto) (0.11-0.59) K/uL Eos # (Auto) (0-0.50) K/uL Baso # (Auto) (0-0.2) K/uL Immature Gran # (Auto) (0.01-0.20) K/uL PT (9.0-12.0) Seconds INR (0.9-1.1) APTT (21.0-31.0) Seconds PTT Ratio Sample Site POC pH (7.35-7.45) POC pCO2 (35-46) mmHg POC pO2 (80-95) mmHg POC HCO3 (19-24) joslyn/L POC Base Excess (-9-1.8) joslyn/L ABG pH (Temp Correct) (7.35-7.45) ABG pCO2 (Temp Corrct (35-46) mmHg POC ABG pO2 at Pt Temp POC ABG O2 Sat (90-95) % Filippo Test VBG pH (7.36-7.41) VBG pCO2 (38-50) mmHg VBG pO2 mmHg VBG HCO3 mmol/L VBG O2 Saturation % VBG Base Excess mEq/L O2 Delivery Device POC O2 Rate POC FiO2 % Tidal Volume PEEP POC Sodium (135-144) mmol/L Sodium (136-145) mmol/L POC Potassium (3.3-5.0) mmol/L Potassium (3.5-5.1) mmol/L POC Chloride (101-112) mmol/L Chloride (98-107) mmol/L Carbon Dioxide (21-32) mmol/L POC Total CO2 (24-31) mmol/L Anion Gap (3-11) POC Anion Gap (16-25) mmol/L POC BUN (7-18) mg/dl BUN (6-23) mg/dl Creatinine (0.6-1.2) mg/dl POC Creatinine (0.6-1.3) mg/dl Est Cr Clr Drug Dosing Est GFR ( Amer) ml/min Est GFR (Non-Af Amer) ml/min BUN/Creatinine Ratio (10-20) Glucose (70-99(Fasting)) mg/dl POC Glucose (70-99) mg/dl POC Glucose (other) (70-99) mg/dl Lactate 2.4 H* (0.4-2.0) mmol/L Calcium (8.5-10.1) mg/dl POC Ioniz Calcium Bernice (1.12-1.32) mmol/l Phosphorus (2.5-4.9) mg/dl Magnesium (1.7-2.4) mg/dl Total Bilirubin (0.2-1.0) mg/dl Direct Bilirubin (0-0.2) mg/dl AST (13-39) U/L ALT (7-52) U/L Alkaline Phosphatase (34-104) U/L Troponin I High Sens (0-14) pg/ml Total Protein (6.0-8.3) gm/dl Albumin (3.4-5.0) gm/dl Lipase (11-82) U/L Procalcitonin (0-0.5) ng/ml Urine Color Yellow Urine Appearance Clear (Clear) Urine pH 5.0 (4.5-7.5) Ur Specific [employer] > 1.045 H (1.000-1.030) Urine Protein 2+ H (Negative) Urine Glucose (UA) Negative (Negative) Urine Ketones Negative (Negative) Urine Blood 1+ H (Negative) Urine Nitrite Negative (Negative) Urine Bilirubin Negative (Negative) Urine Urobilinogen Negative (Negative) Ur Leukocyte Esterase Negative (Negative) Urine WBC (Auto) 5-10 H (0-5) /hpf Urine RBC (Auto) 5-10 H (0-4) /hpf U Hyaline Cast (Auto) 1-5 (0-5) /lpf U Epithel Cells (Auto) >30 H (0-5) /lpf Urine Bacteria (Auto) Negative (Negative) Ur Renal Epithelial Cell Not Reportable Granular Casts 1-5 H (0) /lpf Nasal Screen MRSA (PCR) Pending (Negative) Adenovirus (PCR) (NotDetected) B. pertussis DNA (PCR) (NotDetected) B.parapertussis DNA PCR (NotDetected) C. pneumoniae DNA (PCR) (NotDetected) Coronavirus OC43 (PCR) (NotDetected) Coronavirus HKU1 (PCR) (NotDetected) Coronavirus 229E (PCR) (NotDetected) SARS-CoV-2 (PCR) (NotDetected) Coronavirus NL63 (PCR) (NotDetected) Human Metapneumovir PCR (NotDetected) Influenza Type A (PCR) (NotDetected) Influenza Type B (PCR) (NotDetected) M. pneumoniae (PCR) (NotDetected) Parainfluenza 1 (PCR) (NotDetected) Parainfluenza 2 (PCR) (NotDetected) Parainfluenza 3 (PCR) (NotDetected) Parainfluenza 4 (PCR) (NotDetected) RSV (PCR) (NotDetected) Entero/Rhino (PCR) (NotDetected) 08/12/22 08/12/22 08/12/22 Range/Units 04:09 04:09 04:09 WBC (4.8-10.8) K/ul RBC (4.20-5.40) M/uL Hgb (12.0-16.0) g/dl POC Hgb (12.0-16.0) g/dl Hct (37.0-47.0) % POC Hct (37-47) % MCV (80.0-100.0) fL MCH (25.0-34.0) pg MCHC (32.0-36.0) g/dL RDW Std Deviation (36.4-46.3) fL RDW Coeff of Foster (11.5-14.5) % Plt Count (130-400) K/uL MPV (9.4-12.4) fL Immature Gran % (Auto) % Neut % (Auto) % Lymph % (Auto) % [facility] % (Auto) % Eos % (Auto) % Baso % (Auto) % Neut # (Auto) (1.40-6.50) K/uL Lymph # (Auto) (1.2-3.4) K/uL [facility] # (Auto) (0.11-0.59) K/uL Eos # (Auto) (0-0.50) K/uL Baso # (Auto) (0-0.2) K/uL Immature Gran # (Auto) (0.01-0.20) K/uL PT 11.8 (9.0-12.0) Seconds INR 1.1 (0.9-1.1) APTT 25.3 (21.0-31.0) Seconds PTT Ratio 0.9 Sample Site POC pH (7.35-7.45) POC pCO2 (35-46) mmHg POC pO2 (80-95) mmHg POC HCO3 (19-24) joslyn/L POC Base Excess (-9-1.8) joslyn/L ABG pH (Temp Correct) (7.35-7.45) ABG pCO2 (Temp Corrct (35-46) mmHg POC ABG pO2 at Pt Temp POC ABG O2 Sat (90-95) % Filippo Test VBG pH (7.36-7.41) VBG pCO2 (38-50) mmHg VBG pO2 mmHg VBG HCO3 mmol/L VBG O2 Saturation % VBG Base Excess mEq/L O2 Delivery Device POC O2 Rate POC FiO2 % Tidal Volume PEEP POC Sodium (135-144) mmol/L Sodium (136-145) mmol/L POC Potassium (3.3-5.0) mmol/L Potassium (3.5-5.1) mmol/L POC Chloride (101-112) mmol/L Chloride (98-107) mmol/L Carbon Dioxide (21-32) mmol/L POC Total CO2 (24-31) mmol/L Anion Gap (3-11) POC Anion Gap (16-25) mmol/L POC BUN (7-18) mg/dl BUN (6-23) mg/dl Creatinine (0.6-1.2) mg/dl POC Creatinine (0.6-1.3) mg/dl Est Cr Clr Drug Dosing Est GFR ( Amer) ml/min Est GFR (Non-Af Amer) ml/min BUN/Creatinine Ratio (10-20) Glucose (70-99(Fasting)) mg/dl POC Glucose (70-99) mg/dl POC Glucose (other) (70-99) mg/dl Lactate 2.7 H* (0.4-2.0) mmol/L Calcium (8.5-10.1) mg/dl POC Ioniz Calcium Bernice (1.12-1.32) mmol/l Phosphorus 4.9 (2.5-4.9) mg/dl Magnesium 2.0 (1.7-2.4) mg/dl Total Bilirubin 0.3 (0.2-1.0) mg/dl Direct Bilirubin 0.0 (0-0.2) mg/dl AST 200 H (13-39) U/L ALT 140 H (7-52) U/L Alkaline Phosphatase 97 (34-104) U/L Troponin I High Sens (0-14) pg/ml Total Protein 5.9 L (6.0-8.3) gm/dl Albumin 3.6 (3.4-5.0) gm/dl Lipase 21 (11-82) U/L Procalcitonin (0-0.5) ng/ml Urine Color Urine Appearance (Clear) Urine pH (4.5-7.5) Ur Specific [employer] (1.000-1.030) Urine Protein (Negative) Urine Glucose (UA) (Negative) Urine Ketones (Negative) Urine Blood (Negative) Urine Nitrite (Negative) Urine Bilirubin (Negative) Urine Urobilinogen (Negative) Ur Leukocyte Esterase (Negative) Urine WBC (Auto) (0-5) /hpf Urine RBC (Auto) (0-4) /hpf U Hyaline Cast (Auto) (0-5) /lpf U Epithel Cells (Auto) (0-5) /lpf Urine Bacteria (Auto) (Negative) Ur Renal Epithelial Cell Granular Casts (0) /lpf Nasal Screen MRSA (PCR) (Negative) Adenovirus (PCR) (NotDetected) B. pertussis DNA (PCR) (NotDetected) B.parapertussis DNA PCR (NotDetected) C. pneumoniae DNA (PCR) (NotDetected) Coronavirus OC43 (PCR) (NotDetected) Coronavirus HKU1 (PCR) (NotDetected) Coronavirus 229E (PCR) (NotDetected) SARS-CoV-2 (PCR) (NotDetected) Coronavirus NL63 (PCR) (NotDetected) Human Metapneumovir PCR (NotDetected) Influenza Type A (PCR) (NotDetected) Influenza Type B (PCR) (NotDetected) M. pneumoniae (PCR) (NotDetected) Parainfluenza 1 (PCR) (NotDetected) Parainfluenza 2 (PCR) (NotDetected) Parainfluenza 3 (PCR) (NotDetected) Parainfluenza 4 (PCR) (NotDetected) RSV (PCR) (NotDetected) Entero/Rhino (PCR) (NotDetected) 08/12/22 08/12/22 08/12/22 Range/Units 04:09 04:09 03:35 WBC 23.85 H (4.8-10.8) K/ul RBC 5.04 (4.20-5.40) M/uL Hgb 14.3 (12.0-16.0) g/dl POC Hgb 14.6 (12.0-16.0) g/dl Hct 43.2 (37.0-47.0) % POC Hct 43 (37-47) % MCV 85.7 (80.0-100.0) fL MCH 28.4 (25.0-34.0) pg MCHC 33.1 (32.0-36.0) g/dL RDW Std Deviation 40.9 (36.4-46.3) fL RDW Coeff of Foster 13.1 (11.5-14.5) % Plt Count 330 (130-400) K/uL MPV 8.8 L (9.4-12.4) fL Immature Gran % (Auto) 2.6 % Neut % (Auto) 84.6 % Lymph % (Auto) 6.2 % [facility] % (Auto) 5.9 % Eos % (Auto) 0.2 % Baso % (Auto) 0.5 % Neut # (Auto) 20.17 H (1.40-6.50) K/uL Lymph # (Auto) 1.47 (1.2-3.4) K/uL [facility] # (Auto) 1.41 H (0.11-0.59) K/uL Eos # (Auto) 0.05 (0-0.50) K/uL Baso # (Auto) 0.12 (0-0.2) K/uL Immature Gran # (Auto) 0.63 H (0.01-0.20) K/uL PT (9.0-12.0) Seconds INR (0.9-1.1) APTT (21.0-31.0) Seconds PTT Ratio Sample Site R Radial POC pH 7.28 L (7.35-7.45) POC pCO2 58 H (35-46) mmHg POC pO2 188 H (80-95) mmHg POC HCO3 27 H (19-24) joslyn/L POC Base Excess 0.0 (-9-1.8) joslyn/L ABG pH (Temp Correct) 7.335 L (7.35-7.45) ABG pCO2 (Temp Corrct 48 H (35-46) mmHg POC ABG pO2 at Pt Temp 167 POC ABG O2 Sat 99.0 H (90-95) % Filippo Test Pass VBG pH (7.36-7.41) VBG pCO2 (38-50) mmHg VBG pO2 mmHg VBG HCO3 mmol/L VBG O2 Saturation % VBG Base Excess mEq/L O2 Delivery Device Ventilator POC O2 Rate 18 POC FiO2 50 % Tidal Volume 300 PEEP 8 POC Sodium 133 L (135-144) mmol/L Sodium 135 L (136-145) mmol/L POC Potassium 3.9 (3.3-5.0) mmol/L Potassium 3.6 D (3.5-5.1) mmol/L POC Chloride (101-112) mmol/L Chloride 95 L (98-107) mmol/L Carbon Dioxide 29 (21-32) mmol/L POC Total CO2 28 (24-31) mmol/L Anion Gap 11 (3-11) POC Anion Gap (16-25) mmol/L POC BUN (7-18) mg/dl BUN 18 (6-23) mg/dl Creatinine 1.14 (0.6-1.2) mg/dl POC Creatinine (0.6-1.3) mg/dl Est Cr Clr Drug Dosing Not Reportable Est GFR ( Amer) 56.4 ml/min Est GFR (Non-Af Amer) 48.7 ml/min BUN/Creatinine Ratio 15.8 (10-20) Glucose 184 H (70-99(Fasting)) mg/dl POC Glucose (70-99) mg/dl POC Glucose (other) (70-99) mg/dl Lactate (0.4-2.0) mmol/L Calcium 7.8 L (8.5-10.1) mg/dl POC Ioniz Calcium Bernice (1.12-1.32) mmol/l Phosphorus (2.5-4.9) mg/dl Magnesium (1.7-2.4) mg/dl Total Bilirubin (0.2-1.0) mg/dl Direct Bilirubin (0-0.2) mg/dl AST (13-39) U/L ALT (7-52) U/L Alkaline Phosphatase (34-104) U/L Troponin I High Sens 350.2 H* D (0-14) pg/ml Total Protein (6.0-8.3) gm/dl Albumin (3.4-5.0) gm/dl Lipase (11-82) U/L Procalcitonin (0-0.5) ng/ml Urine Color Urine Appearance (Clear) Urine pH (4.5-7.5) Ur Specific [employer] (1.000-1.030) Urine Protein (Negative) Urine Glucose (UA) (Negative) Urine Ketones (Negative) Urine Blood (Negative) Urine Nitrite (Negative) Urine Bilirubin (Negative) Urine Urobilinogen (Negative) Ur Leukocyte Esterase (Negative) Urine WBC (Auto) (0-5) /hpf Urine RBC (Auto) (0-4) /hpf U Hyaline Cast (Auto) (0-5) /lpf U Epithel Cells (Auto) (0-5) /lpf Urine Bacteria (Auto) (Negative) Ur Renal Epithelial Cell Granular Casts (0) /lpf Nasal Screen MRSA (PCR) (Negative) Adenovirus (PCR) (NotDetected) B. pertussis DNA (PCR) (NotDetected) B.parapertussis DNA PCR (NotDetected) C. pneumoniae DNA (PCR) (NotDetected) Coronavirus OC43 (PCR) (NotDetected) Coronavirus HKU1 (PCR) (NotDetected) Coronavirus 229E (PCR) (NotDetected) SARS-CoV-2 (PCR) (NotDetected) Coronavirus NL63 (PCR) (NotDetected) Human Metapneumovir PCR (NotDetected) Influenza Type A (PCR) (NotDetected) Influenza Type B (PCR) (NotDetected) M. pneumoniae (PCR) (NotDetected) Parainfluenza 1 (PCR) (NotDetected) Parainfluenza 2 (PCR) (NotDetected) Parainfluenza 3 (PCR) (NotDetected) Parainfluenza 4 (PCR) (NotDetected) RSV (PCR) (NotDetected) Entero/Rhino (PCR) (NotDetected) 08/12/22 08/12/22 08/12/22 Range/Units 00:34 00:34 00:32 WBC (4.8-10.8) K/ul RBC (4.20-5.40) M/uL Hgb (12.0-16.0) g/dl POC Hgb (12.0-16.0) g/dl Hct (37.0-47.0) % POC Hct (37-47) % MCV (80.0-100.0) fL MCH (25.0-34.0) pg MCHC (32.0-36.0) g/dL RDW Std Deviation (36.4-46.3) fL RDW Coeff of Foster (11.5-14.5) % Plt Count (130-400) K/uL MPV (9.4-12.4) fL Immature Gran % (Auto) % Neut % (Auto) % Lymph % (Auto) % [facility] % (Auto) % Eos % (Auto) % Baso % (Auto) % Neut # (Auto) (1.40-6.50) K/uL Lymph # (Auto) (1.2-3.4) K/uL [facility] # (Auto) (0.11-0.59) K/uL Eos # (Auto) (0-0.50) K/uL Baso # (Auto) (0-0.2) K/uL Immature Gran # (Auto) (0.01-0.20) K/uL PT (9.0-12.0) Seconds INR (0.9-1.1) APTT (21.0-31.0) Seconds PTT Ratio Sample Site POC pH (7.35-7.45) POC pCO2 (35-46) mmHg POC pO2 (80-95) mmHg POC HCO3 (19-24) joslyn/L POC Base Excess (-9-1.8) joslyn/L ABG pH (Temp Correct) (7.35-7.45) ABG pCO2 (Temp Corrct (35-46) mmHg POC ABG pO2 at Pt Temp POC ABG O2 Sat (90-95) % Filippo Test VBG pH (7.36-7.41) VBG pCO2 (38-50) mmHg VBG pO2 mmHg VBG HCO3 mmol/L VBG O2 Saturation % VBG Base Excess mEq/L O2 Delivery Device POC O2 Rate POC FiO2 % Tidal Volume PEEP POC Sodium (135-144) mmol/L Sodium (136-145) mmol/L POC Potassium (3.3-5.0) mmol/L Potassium (3.5-5.1) mmol/L POC Chloride (101-112) mmol/L Chloride (98-107) mmol/L Carbon Dioxide (21-32) mmol/L POC Total CO2 (24-31) mmol/L Anion Gap (3-11) POC Anion Gap (16-25) mmol/L POC BUN (7-18) mg/dl BUN (6-23) mg/dl Creatinine (0.6-1.2) mg/dl POC Creatinine (0.6-1.3) mg/dl Est Cr Clr Drug Dosing Est GFR ( Amer) ml/min Est GFR (Non-Af Amer) ml/min BUN/Creatinine Ratio (10-20) Glucose (70-99(Fasting)) mg/dl POC Glucose (70-99) mg/dl POC Glucose (other) (70-99) mg/dl Lactate 7.3 H* (0.4-2.0) mmol/L Calcium (8.5-10.1) mg/dl POC Ioniz Calcium Bernice (1.12-1.32) mmol/l Phosphorus (2.5-4.9) mg/dl Magnesium (1.7-2.4) mg/dl Total Bilirubin (0.2-1.0) mg/dl Direct Bilirubin (0-0.2) mg/dl AST (13-39) U/L ALT (7-52) U/L Alkaline Phosphatase (34-104) U/L Troponin I High Sens (0-14) pg/ml Total Protein (6.0-8.3) gm/dl Albumin (3.4-5.0) gm/dl Lipase (11-82) U/L Procalcitonin (0-0.5) ng/ml Urine Color Urine Appearance (Clear) Urine pH (4.5-7.5) Ur Specific [employer] (1.000-1.030) Urine Protein (Negative) Urine Glucose (UA) (Negative) Urine Ketones (Negative) Urine Blood (Negative) Urine Nitrite (Negative) Urine Bilirubin (Negative) Urine Urobilinogen (Negative) Ur Leukocyte Esterase (Negative) Urine WBC (Auto) (0-5) /hpf Urine RBC (Auto) (0-4) /hpf U Hyaline Cast (Auto) (0-5) /lpf U Epithel Cells (Auto) (0-5) /lpf Urine Bacteria (Auto) (Negative) Ur Renal Epithelial Cell Granular Casts (0) /lpf Nasal Screen MRSA (PCR) Negative (Negative) Adenovirus (PCR) Not Detected (NotDetected) B. pertussis DNA (PCR) Not Detected (NotDetected) B.parapertussis DNA PCR Not Detected (NotDetected) C. pneumoniae DNA (PCR) Not Detected (NotDetected) Coronavirus OC43 (PCR) Not Detected (NotDetected) Coronavirus HKU1 (PCR) Not Detected (NotDetected) Coronavirus 229E (PCR) Not Detected (NotDetected) SARS-CoV-2 (PCR) Not Detected (NotDetected) Coronavirus NL63 (PCR) Not Detected (NotDetected) Human Metapneumovir PCR Not Detected (NotDetected) Influenza Type A (PCR) Not Detected (NotDetected) Influenza Type B (PCR) Not Detected (NotDetected) M. pneumoniae (PCR) Not Detected (NotDetected) Parainfluenza 1 (PCR) Not Detected (NotDetected) Parainfluenza 2 (PCR) Not Detected (NotDetected) Parainfluenza 3 (PCR) Not Detected (NotDetected) Parainfluenza 4 (PCR) Not Detected (NotDetected) RSV (PCR) Not Detected (NotDetected) Entero/Rhino (PCR) Not Detected (NotDetected) 08/11/22 08/11/22 08/11/22 Range/Units 22:36 22:28 22:28 WBC (4.8-10.8) K/ul RBC (4.20-5.40) M/uL Hgb (12.0-16.0) g/dl POC Hgb 13.3 13.6 (12.0-16.0) g/dl Hct (37.0-47.0) % POC Hct 39 40 (37-47) % MCV (80.0-100.0) fL MCH (25.0-34.0) pg MCHC (32.0-36.0) g/dL RDW Std Deviation (36.4-46.3) fL RDW Coeff of Foster (11.5-14.5) % Plt Count (130-400) K/uL MPV (9.4-12.4) fL Immature Gran % (Auto) % Neut % (Auto) % Lymph % (Auto) % [facility] % (Auto) % Eos % (Auto) % Baso % (Auto) % Neut # (Auto) (1.40-6.50) K/uL Lymph # (Auto) (1.2-3.4) K/uL [facility] # (Auto) (0.11-0.59) K/uL Eos # (Auto) (0-0.50) K/uL Baso # (Auto) (0-0.2) K/uL Immature Gran # (Auto) (0.01-0.20) K/uL PT (9.0-12.0) Seconds INR (0.9-1.1) APTT (21.0-31.0) Seconds PTT Ratio Sample Site POC pH 7.15 L* (7.35-7.45) POC pCO2 50 H (35-46) mmHg POC pO2 > 420 H (80-95) mmHg POC HCO3 18 L (19-24) joslyn/L POC Base Excess -11.0 L (-9-1.8) joslyn/L ABG pH (Temp Correct) (7.35-7.45) ABG pCO2 (Temp Corrct (35-46) mmHg POC ABG pO2 at Pt Temp POC ABG O2 Sat 100.0 H (90-95) % Filippo Test VBG pH (7.36-7.41) VBG pCO2 (38-50) mmHg VBG pO2 mmHg VBG HCO3 mmol/L VBG O2 Saturation % VBG Base Excess mEq/L O2 Delivery Device POC O2 Rate POC FiO2 % Tidal Volume PEEP POC Sodium 131 L 133 L (135-144) mmol/L Sodium (136-145) mmol/L POC Potassium 3.0 L 2.8 L (3.3-5.0) mmol/L Potassium (3.5-5.1) mmol/L POC Chloride 93 L (101-112) mmol/L Chloride (98-107) mmol/L Carbon Dioxide (21-32) mmol/L POC Total CO2 19 L 24 (24-31) mmol/L Anion Gap (3-11) POC Anion Gap 20.0 (16-25) mmol/L POC BUN 15 (7-18) mg/dl BUN (6-23) mg/dl Creatinine (0.6-1.2) mg/dl POC Creatinine 1.2 (0.6-1.3) mg/dl Est Cr Clr Drug Dosing Est GFR ( Amer) ml/min Est GFR (Non-Af Amer) ml/min BUN/Creatinine Ratio (10-20) Glucose (70-99(Fasting)) mg/dl POC Glucose (70-99) mg/dl POC Glucose (other) 227 H (70-99) mg/dl Lactate 9.6 H* (0.4-2.0) mmol/L Calcium (8.5-10.1) mg/dl POC Ioniz Calcium Bernice 1.10 L (1.12-1.32) mmol/l Phosphorus (2.5-4.9) mg/dl Magnesium (1.7-2.4) mg/dl Total Bilirubin (0.2-1.0) mg/dl Direct Bilirubin (0-0.2) mg/dl AST (13-39) U/L ALT (7-52) U/L Alkaline Phosphatase (34-104) U/L Troponin I High Sens (0-14) pg/ml Total Protein (6.0-8.3) gm/dl Albumin (3.4-5.0) gm/dl Lipase (11-82) U/L Procalcitonin (0-0.5) ng/ml Urine Color Urine Appearance (Clear) Urine pH (4.5-7.5) Ur Specific [employer] (1.000-1.030) Urine Protein (Negative) Urine Glucose (UA) (Negative) Urine Ketones (Negative) Urine Blood (Negative) Urine Nitrite (Negative) Urine Bilirubin (Negative) Urine Urobilinogen (Negative) Ur Leukocyte Esterase (Negative) Urine WBC (Auto) (0-5) /hpf Urine RBC (Auto) (0-4) /hpf U Hyaline Cast (Auto) (0-5) /lpf U Epithel Cells (Auto) (0-5) /lpf Urine Bacteria (Auto) (Negative) Ur Renal Epithelial Cell Granular Casts (0) /lpf Nasal Screen MRSA (PCR) (Negative) Adenovirus (PCR) (NotDetected) B. pertussis DNA (PCR) (NotDetected) B.parapertussis DNA PCR (NotDetected) C. pneumoniae DNA (PCR) (NotDetected) Coronavirus OC43 (PCR) (NotDetected) Coronavirus HKU1 (PCR) (NotDetected) Coronavirus 229E (PCR) (NotDetected) SARS-CoV-2 (PCR) (NotDetected) Coronavirus NL63 (PCR) (NotDetected) Human Metapneumovir PCR (NotDetected) Influenza Type A (PCR) (NotDetected) Influenza Type B (PCR) (NotDetected) M. pneumoniae (PCR) (NotDetected) Parainfluenza 1 (PCR) (NotDetected) Parainfluenza 2 (PCR) (NotDetected) Parainfluenza 3 (PCR) (NotDetected) Parainfluenza 4 (PCR) (NotDetected) RSV (PCR) (NotDetected) Entero/Rhino (PCR) (NotDetected) 08/11/22 08/11/22 08/11/22 Range/Units 22:28 22:28 22:28 WBC (4.8-10.8) K/ul RBC (4.20-5.40) M/uL Hgb (12.0-16.0) g/dl POC Hgb (12.0-16.0) g/dl Hct (37.0-47.0) % POC Hct (37-47) % MCV (80.0-100.0) fL MCH (25.0-34.0) pg MCHC (32.0-36.0) g/dL RDW Std Deviation (36.4-46.3) fL RDW Coeff of Foster (11.5-14.5) % Plt Count (130-400) K/uL MPV (9.4-12.4) fL Immature Gran % (Auto) % Neut % (Auto) % Lymph % (Auto) % [facility] % (Auto) % Eos % (Auto) % Baso % (Auto) % Neut # (Auto) (1.40-6.50) K/uL Lymph # (Auto) (1.2-3.4) K/uL [facility] # (Auto) (0.11-0.59) K/uL Eos # (Auto) (0-0.50) K/uL Baso # (Auto) (0-0.2) K/uL Immature Gran # (Auto) (0.01-0.20) K/uL PT (9.0-12.0) Seconds INR (0.9-1.1) APTT (21.0-31.0) Seconds PTT Ratio Sample Site POC pH (7.35-7.45) POC pCO2 (35-46) mmHg POC pO2 (80-95) mmHg POC HCO3 (19-24) joslyn/L POC Base Excess (-9-1.8) joslyn/L ABG pH (Temp Correct) (7.35-7.45) ABG pCO2 (Temp Corrct (35-46) mmHg POC ABG pO2 at Pt Temp POC ABG O2 Sat (90-95) % Filippo Test VBG pH < 7.00 L (7.36-7.41) VBG pCO2 79 H (38-50) mmHg VBG pO2 55 mmHg VBG HCO3 19 mmol/L VBG O2 Saturation 68.4 % VBG Base Excess -13.7 mEq/L O2 Delivery Device POC O2 Rate POC FiO2 % Tidal Volume PEEP POC Sodium (135-144) mmol/L Sodium 134 L (136-145) mmol/L POC Potassium (3.3-5.0) mmol/L Potassium 2.8 L (3.5-5.1) mmol/L POC Chloride (101-112) mmol/L Chloride 92 L (98-107) mmol/L Carbon Dioxide 19 L (21-32) mmol/L POC Total CO2 (24-31) mmol/L Anion Gap 23 H (3-11) POC Anion Gap (16-25) mmol/L POC BUN (7-18) mg/dl BUN 16 (6-23) mg/dl Creatinine 1.20 (0.6-1.2) mg/dl POC Creatinine (0.6-1.3) mg/dl Est Cr Clr Drug Dosing Not Reportable Est GFR ( Amer) 53.0 ml/min Est GFR (Non-Af Amer) 45.8 ml/min BUN/Creatinine Ratio 13.3 (10-20) Glucose 229 H (70-99(Fasting)) mg/dl POC Glucose (70-99) mg/dl POC Glucose (other) (70-99) mg/dl Lactate (0.4-2.0) mmol/L Calcium 8.6 (8.5-10.1) mg/dl POC Ioniz Calcium Bernice (1.12-1.32) mmol/l Phosphorus (2.5-4.9) mg/dl Magnesium 2.1 (1.7-2.4) mg/dl Total Bilirubin 0.4 (0.2-1.0) mg/dl Direct Bilirubin 0.0 (0-0.2) mg/dl AST 171 H (13-39) U/L ALT 142 H (7-52) U/L Alkaline Phosphatase 113 H (34-104) U/L Troponin I High Sens 119.8 H* (0-14) pg/ml Total Protein 5.9 L (6.0-8.3) gm/dl Albumin 3.5 (3.4-5.0) gm/dl Lipase 46 (11-82) U/L Procalcitonin 0.14 (0-0.5) ng/ml Urine Color Urine Appearance (Clear) Urine pH (4.5-7.5) Ur Specific [employer] (1.000-1.030) Urine Protein (Negative) Urine Glucose (UA) (Negative) Urine Ketones (Negative) Urine Blood (Negative) Urine Nitrite (Negative) Urine Bilirubin (Negative) Urine Urobilinogen (Negative) Ur Leukocyte Esterase (Negative) Urine WBC (Auto) (0-5) /hpf Urine RBC (Auto) (0-4) /hpf U Hyaline Cast (Auto) (0-5) /lpf U Epithel Cells (Auto) (0-5) /lpf Urine Bacteria (Auto) (Negative) Ur Renal Epithelial Cell Granular Casts (0) /lpf Nasal Screen MRSA (PCR) (Negative) Adenovirus (PCR) (NotDetected) B. pertussis DNA (PCR) (NotDetected) B.parapertussis DNA PCR (NotDetected) C. pneumoniae DNA (PCR) (NotDetected) Coronavirus OC43 (PCR) (NotDetected) Coronavirus HKU1 (PCR) (NotDetected) Coronavirus 229E (PCR) (NotDetected) SARS-CoV-2 (PCR) (NotDetected) Coronavirus NL63 (PCR) (NotDetected) Human Metapneumovir PCR (NotDetected) Influenza Type A (PCR) (NotDetected) Influenza Type B (PCR) (NotDetected) M. pneumoniae (PCR) (NotDetected) Parainfluenza 1 (PCR) (NotDetected) Parainfluenza 2 (PCR) (NotDetected) Parainfluenza 3 (PCR) (NotDetected) Parainfluenza 4 (PCR) (NotDetected) RSV (PCR) (NotDetected) Entero/Rhino (PCR) (NotDetected) 08/11/22 08/11/22 08/11/22 Range/Units 22:28 22:28 22:27 WBC 23.62 H (4.8-10.8) K/ul RBC 4.50 (4.20-5.40) M/uL Hgb 12.9 (12.0-16.0) g/dl POC Hgb (12.0-16.0) g/dl Hct 40.0 (37.0-47.0) % POC Hct (37-47) % MCV 88.9 (80.0-100.0) fL MCH 28.7 (25.0-34.0) pg MCHC 32.3 (32.0-36.0) g/dL RDW Std Deviation 42.1 (36.4-46.3) fL RDW Coeff of Foster 12.9 (11.5-14.5) % Plt Count 341 (130-400) K/uL MPV 8.8 L (9.4-12.4) fL Immature Gran % (Auto) 8.0 % Neut % (Auto) 65.0 % Lymph % (Auto) 21.7 % [facility] % (Auto) 3.3 % Eos % (Auto) 1.3 % Baso % (Auto) 0.7 % Neut # (Auto) 15.36 H (1.40-6.50) K/uL Lymph # (Auto) 5.13 H (1.2-3.4) K/uL [facility] # (Auto) 0.77 H (0.11-0.59) K/uL Eos # (Auto) 0.31 (0-0.50) K/uL Baso # (Auto) 0.16 (0-0.2) K/uL Immature Gran # (Auto) 1.89 H (0.01-0.20) K/uL PT 11.4 (9.0-12.0) Seconds INR 1.1 (0.9-1.1) APTT (21.0-31.0) Seconds PTT Ratio Sample Site POC pH (7.35-7.45) POC pCO2 (35-46) mmHg POC pO2 (80-95) mmHg POC HCO3 (19-24) joslyn/L POC Base Excess (-9-1.8) joslyn/L ABG pH (Temp Correct) (7.35-7.45) ABG pCO2 (Temp Corrct (35-46) mmHg POC ABG pO2 at Pt Temp POC ABG O2 Sat (90-95) % Filippo Test VBG pH (7.36-7.41) VBG pCO2 (38-50) mmHg VBG pO2 mmHg VBG HCO3 mmol/L VBG O2 Saturation % VBG Base Excess mEq/L O2 Delivery Device POC O2 Rate POC FiO2 % Tidal Volume PEEP POC Sodium (135-144) mmol/L Sodium (136-145) mmol/L POC Potassium (3.3-5.0) mmol/L Potassium (3.5-5.1) mmol/L POC Chloride (101-112) mmol/L Chloride (98-107) mmol/L Carbon Dioxide (21-32) mmol/L POC Total CO2 (24-31) mmol/L Anion Gap (3-11) POC Anion Gap (16-25) mmol/L POC BUN (7-18) mg/dl BUN (6-23) mg/dl Creatinine (0.6-1.2) mg/dl POC Creatinine (0.6-1.3) mg/dl Est Cr Clr Drug Dosing Est GFR ( Amer) ml/min Est GFR (Non-Af Amer) ml/min BUN/Creatinine Ratio (10-20) Glucose (70-99(Fasting)) mg/dl POC Glucose 238 H (70-99) mg/dl POC Glucose (other) (70-99) mg/dl Lactate (0.4-2.0) mmol/L Calcium (8.5-10.1) mg/dl POC Ioniz Calcium Bernice (1.12-1.32) mmol/l Phosphorus (2.5-4.9) mg/dl Magnesium (1.7-2.4) mg/dl Total Bilirubin (0.2-1.0) mg/dl Direct Bilirubin (0-0.2) mg/dl AST (13-39) U/L ALT (7-52) U/L Alkaline Phosphatase (34-104) U/L Troponin I High Sens (0-14) pg/ml Total Protein (6.0-8.3) gm/dl Albumin (3.4-5.0) gm/dl Lipase (11-82) U/L Procalcitonin (0-0.5) ng/ml Urine Color Urine Appearance (Clear) Urine pH (4.5-7.5) Ur Specific [employer] (1.000-1.030) Urine Protein (Negative) Urine Glucose (UA) (Negative) Urine Ketones (Negative) Urine Blood (Negative) Urine Nitrite (Negative) Urine Bilirubin (Negative) Urine Urobilinogen (Negative) Ur Leukocyte Esterase (Negative) Urine WBC (Auto) (0-5) /hpf Urine RBC (Auto) (0-4) /hpf U Hyaline Cast (Auto) (0-5) /lpf U Epithel Cells (Auto) (0-5) /lpf Urine Bacteria (Auto) (Negative) Ur Renal Epithelial Cell Granular Casts (0) /lpf Nasal Screen MRSA (PCR) (Negative) Adenovirus (PCR) (NotDetected) B. pertussis DNA (PCR) (NotDetected) B.parapertussis DNA PCR (NotDetected) C. pneumoniae DNA (PCR) (NotDetected) Coronavirus OC43 (PCR) (NotDetected) Coronavirus HKU1 (PCR) (NotDetected) Coronavirus 229E (PCR) (NotDetected) SARS-CoV-2 (PCR) (NotDetected) Coronavirus NL63 (PCR) (NotDetected) Human Metapneumovir PCR (NotDetected) Influenza Type A (PCR) (NotDetected) Influenza Type B (PCR) (NotDetected) M. pneumoniae (PCR) (NotDetected) Parainfluenza 1 (PCR) (NotDetected) Parainfluenza 2 (PCR) (NotDetected) Parainfluenza 3 (PCR) (NotDetected) Parainfluenza 4 (PCR) (NotDetected) RSV (PCR) (NotDetected) Entero/Rhino (PCR) (NotDetected) Resident Activity Tracking Resident Involvement: Resident Care Provided Care Provided: Adult [facility]
[2022-08-12] MEDS ORDERED: ICU Protocol for HYPERglycemia SCH ×2 (07:30)
--- NOTE | 2022-08-12 08:03 | XRay Report ---
XR chest 1V portable HISTORY: 71 years-old Female while intubated- eval tubes and line placment acute shortness of breath COMPARISON: CTA chest 08/11/2022 TECHNIQUE: AP view of the chest FINDINGS: Endotracheal tube overlies the midline, 2.4 cm superior to the hillary. Enteric tube courses into the stomach. Cardiomegaly. Mild pulmonary vascular congestion. No pneumothorax, or large pleural effusion . Degenerative changes of the shoulders and spine. IMPRESSION: 1. Endotracheal and enteric tubes as above. 2. Cardiomegaly without acute process. ACT 112: Negative or not required by law. The above report was generated using voice recognition software. It may contain grammatical, syntax o r spelling errors. Electronically signed by: Oscar Huang M.D. 08/12/2022 8:02 AM
[2022-08-12] MEDS: propofoL 1,000 MG/100 ML VIAL IV SCH ×6 (08:44→22:15)
[2022-08-12] MEDS: DOXYCYCLINE HYCLATE 100 MG in DEXTROSE 5% 100 ML IV SCH ×2 (09:07→17:48)
[2022-08-12] MEDS: MAGNESIUM SULFATE / D5W 1 GM/100 ML BAG IV SCH ×2 (09:07→11:12)
[2022-08-12] MEDS: PANTOprazole 40 MG in SYRINGE 0 ML IV SCH (09:08)
[2022-08-12] MEDS: NORMOSOL-R 1,000 ML IV SCH ×2 (09:55→23:42)
[2022-08-12] MEDS: POTASSIUM CHLORIDE / WTR 20 MEQ/100 ML PLCT IV SCH ×2 (10:31→11:54)
--- NOTE | 2022-08-12 10:47 | Billing Data ---
Date of Service August 12, 2022 Coding Level of Care Code Critical Care 1st - mins
--- NOTE | 2022-08-12 11:31 | Cardiology Consultation ---
Date of Consultation August 12, 2022 Assessment & Plan (1) Cardiopulmonary arrest with successful resuscitation: -not doing well clinically. -appears to be actively seizing. -remains on Levophed for blood pressure support -left ventricular systolic function normal. -will need a cardiac catheterization if she survives. -poor prognosis. History of Present Illness Attending Physician: Cindy Brown MD History of Present Illness Mrs. Baker is a 8-year-old female admitted yesterday after a respiratory and cardiac arrest. This consultation was ordered to assist in her management. Information is obtained from chart review and discussions with Dr. Salazar as the patient is sedated and ventilated. According to the record, she was in her usual state of health until after her evening meal last night. She became severely short of breath and called for her . He called 911. He did witness her to become unresponsive. When the manager shop arrived, CPR was initiated and she was defibrillated for ventricular fibrillation. ROSC was eventually attained. On arrival to the emergency room, the patient was intubated and placed on ventilator. Potassium level at the time of presentation was 2.8. She required Levophed for blood pressure support. Currently, patient is in the intensive care unit. She appears to be having status epilepticus. For past medical and surgical history 1. Hypertension 2. Hypercholesterolemia 3. GERD 4. Irritable bowel syndrome 5. Obstructive sleep apnea 6. Bipolar disorder 7. Obesity 8. Migraine headaches Social history and lives with her Tobacco and alcohol history are unobtainable. Family history Noncontributory Review of systems Unobtainable Allergies Allergy/AdvReac Type Severity Reaction Status Date / Time Penicillins Allergy Intermediate Rash Verified 08/11/22 22:59 codeine AdvReac Intermediate Gastrointestinal Verified 08/11/22 22:59 Upset [id number] Reductase AdvReac Intermediate body aches Verified 08/11/22 22:59 Inhibitor Home Medications Medication Instructions Recorded Confirmed Type esomeprazole magnesium 40 mg 40 mg PO DAILY 08/01/21 08/11/22 History capsule,delayed release hydrochlorothiazide 25 mg tablet 25 mg PO DAILY 08/01/21 08/11/22 History lamotrigine 150 mg tablet 150 mg PO HS 08/01/21 08/11/22 History (Lamictal) lorazepam 1 mg tablet 1 mg PO BID PRN Anxiety 08/01/21 08/11/22 History metoprolol succinate 200 mg 200 mg PO DAILY 08/01/21 08/11/22 History capsule sprinkle, ext. release 24 hr paroxetine HCl 30 mg tablet 60 mg PO QAM 08/01/21 08/11/22 History quetiapine 50 mg tablet 50 mg PO HS 08/01/21 08/11/22 History ergocalciferol (vitamin D2) 1,250 50,000 unit PO WK 08/11/22 08/11/22 History mcg (50,000 unit) capsule (Vitamin D2) olmesartan 5 mg tablet 5 mg PO HS 08/11/22 08/11/22 History simvastatin 20 mg tablet 60 mg PO HS 08/11/22 08/11/22 History Patient History Medical History Bipolar 1 disorder Constipated Fatigue HTN (hypertension) Hyperlipemia IBS (irritable bowel syndrome) Migraine Reflux esophagitis Snoring Family History Father Hypertension Stroke Cancer skin cancer Alcohol abuse Glaucoma Mother Alcohol abuse Grandmother (Maternal) Cancer Hypertension Social History Smoking Status: Unknown if ever smoked Hx Alcohol Use: Yes Alcohol type: hard liquor Alcohol Intake Frequency: 4 or More x per/Week marital status: Current Living Situation: Spouse Physical Exam Physical Exam: In general, patient is actively seizing. HEENT exam notes an endotracheal tube in place. Neck is supple with full carotid upstrokes. Jugular is pressure cannot be assessed. Cardiovascular exam reveals a regular rhythm with distant heart sounds. No obvious murmurs. Lungs note coarse breath sounds throughout. Abdomen is obese. Extremities note trace pretibial edema. Results & Data ([facility]) Vital Signs (Past 12 Hours) Vital Signs Temp Pulse Resp BP Pulse Ox O2 Del Method FiO2 08/12/22 10:01 34.3 C L 54 L 21 99 08/12/22 10:01 105/54 L 08/12/22 10:00 34.3 C L 54 L 24 95 08/12/22 09:01 33.9 C L 49 L 14 99 08/12/22 09:01 129/75 08/12/22 09:00 33.9 C L 53 L 15 97 08/12/22 08:01 33.6 C L 49 L 18 96 08/12/22 08:01 123/74 08/12/22 08:00 33.6 C L 50 L 18 96 08/12/22 07:01 33.3 C L 47 L 16 98 08/12/22 07:01 129/76 08/12/22 07:00 33.3 C L 48 L 18 97 08/12/22 06:45 33.1 C L 46 L 18 98 08/12/22 11:04 54 L 08/12/22 11:04 30 08/12/22 10:55 Mechanical Vent 30 08/12/22 08:00 54 L 08/12/22 08:00 30 08/12/22 07:10 48 L 18 98 30 08/12/22 05:51 128/75 08/12/22 05:51 33.2 C L 47 L 18 97 08/12/22 05:50 33.2 C L 47 L 18 97 08/12/22 05:46 138/79 08/12/22 05:46 33.2 C L 48 L 16 97 08/12/22 05:41 33.2 C L 49 L 18 97 08/12/22 05:41 132/77 08/12/22 05:40 33.2 C L 48 L 16 08/12/22 05:35 133/81 08/12/22 05:35 33.2 C L 49 L 18 08/12/22 05:30 33.2 C L 48 L 18 97 08/12/22 05:30 126/82 08/12/22 05:25 117/73 08/12/22 05:25 33.1 C L 50 L 16 08/12/22 05:21 33.1 C L 49 L 18 97 08/12/22 05:21 119/74 08/12/22 05:20 33.1 C L 49 L 18 08/12/22 05:15 122/78 08/12/22 05:15 33.1 C L 49 L 18 08/12/22 05:11 33.1 C L 48 L 18 98 08/12/22 05:11 129/80 08/12/22 05:10 33.1 C L 48 L 19 08/12/22 05:06 33.0 C L 47 L 18 99 08/12/22 05:00 33.0 C L 48 L 18 98 08/12/22 05:00 133/79 08/12/22 04:55 33.0 C L 48 L 19 100 08/12/22 04:55 141/87 H 08/12/22 04:50 33.0 C L 48 L 18 08/12/22 04:50 147/88 H 08/12/22 04:46 147/87 H 08/12/22 04:46 33.0 C L 48 L 18 99 08/12/22 04:41 157/93 H 08/12/22 04:41 32.9 C L 47 L 18 99 08/12/22 04:40 32.9 C L 48 L 18 99 08/12/22 04:36 32.9 C L 48 L 18 100 08/12/22 04:36 160/91 H 08/12/22 04:31 32.9 C L 48 L 18 100 08/12/22 04:31 166/93 H 08/12/22 04:30 32.9 C L 47 L 18 99 08/12/22 04:26 32.9 C L 47 L 18 99 08/12/22 04:26 164/92 H 08/12/22 04:21 32.9 C L 47 L 18 99 08/12/22 04:21 164/92 H 08/12/22 04:20 32.9 C L 47 L 18 100 08/12/22 04:16 32.8 C L 48 L 18 08/12/22 04:16 156/90 H 08/12/22 04:12 161/92 H 08/12/22 04:12 32.8 C L 49 L 18 08/12/22 04:10 32.8 C L 51 L 19 08/12/22 03:47 44 L 18 100 40 08/12/22 06:10 Mechanical Vent 08/12/22 05:59 33.2 C L 20 97 Mechanical Vent 08/12/22 05:00 33.2 C L 08/12/22 04:00 99 Mechanical Vent 08/12/22 04:00 0.35 08/12/22 03:41 48 L 08/12/22 03:41 33.0 C L 32 H 08/12/22 04:23 100 Mechanical Vent 0.40 08/12/22 02:00 48 L 19 120/71 100 Mechanical Vent 08/12/22 01:55 48 L 18 130/64 100 Mechanical Vent 08/12/22 01:50 48 L 20 119/67 100 Mechanical Vent 08/12/22 01:45 48 L 20 124/66 100 Mechanical Vent 08/12/22 01:40 48 L 19 116/66 100 Mechanical Vent 08/12/22 01:35 48 L 19 121/62 100 Mechanical Vent 08/12/22 01:30 47 L 18 113/61 100 Mechanical Vent 08/12/22 01:25 19 114/65 100 Mechanical Vent 08/12/22 01:20 48 L 19 112/60 100 Mechanical Vent 08/12/22 01:15 47 L 20 112/57 L 100 Mechanical Vent 08/12/22 01:10 48 L 18 113/61 100 Mechanical Vent 08/12/22 01:05 48 L 18 108/62 100 Mechanical Vent 08/12/22 01:00 48 L 20 117/61 100 Mechanical Vent 08/12/22 00:55 48 L 18 110/62 99 Mechanical Vent 08/12/22 00:50 48 L 19 109/60 99 Mechanical Vent 08/12/22 00:45 48 L 25 H 99/57 L 100 Mechanical Vent 08/12/22 00:40 49 L 25 H 102/58 L 100 Mechanical Vent 08/12/22 00:35 49 L 18 99/58 L 100 Mechanical Vent 08/12/22 00:30 49 L 21 100/57 L 100 Mechanical Vent 08/12/22 00:25 49 L 21 102/56 L 100 Mechanical Vent 08/12/22 00:20 50 L 21 101/55 L 100 Mechanical Vent 08/12/22 00:15 52 L 21 93/46 L 100 Mechanical Vent 08/12/22 00:10 52 L 21 91/51 L 100 Mechanical Vent 08/12/22 00:08 51 L 21 94/47 L 99 Mechanical Vent 08/11/22 23:26 68 22 82/38 L 100 Mechanical Vent Laboratory Results Electrolytes note a potassium now normal at 3.6. Initial high sensitivity troponin was 119.8 with follow-up values of 350.2, and 370.5. Diagnostic Findings Initial EKG noted wide complex tachycardia with a complete right bundle branch block. Second tracing noted probable atrial fibrillation with baseline artifact. Third tracing notes sinus bradycardia with first-degree AV block and a prolonged QT interval. PG Care Time/CCT Total # of Minutes Spent Total Time Spent with Patient: Total time spent is greater than 50% in coordination of care (as documented) at patient's floor/unit and/or counseling patient: Coding Level of Care Code 40269 INT INP/OBS CARE 3/75MIN Diagnoses Cardiopulmonary arrest with successful resuscitation I46.9
[2022-08-12] MEDS: NOREPINEPHRINE/D5W 4 MG/250 ML PLCT IV SCH (11:38)
--- NOTE | 2022-08-12 13:05 | XCELERA ---
[id number]
--- NOTE | 2022-08-12 13:13 | Electrocardiogram Report ---
Test Reason : Blood Pressure : / mmHG Vent. Rate : 071 BPM Atrial Rate : 093 BPM P-R Int : 000 ms QRS Dur : 158 ms QT Int : 512 ms P-R-T Axes : 000 086 009 degrees QTc Int : 556 ms Poor data quality, interpretation may be adversely affected Wide QRS rhythm Right bundle branch block Abnormal ECG No previous ECGs available Confirmed by Max Berrios ([id number]) on 08/12/2022 1:13:00 PM Referred By: REFERRED SELF Confirmed By:Max Berrios
--- NOTE | 2022-08-12 13:14 | Electrocardiogram Report ---
Test Reason : Blood Pressure : / mmHG Vent. Rate : 086 BPM Atrial Rate : 087 BPM P-R Int : 000 ms QRS Dur : 084 ms QT Int : 518 ms P-R-T Axes : 107 063 -51 degrees QTc Int : 619 ms Poor data quality, interpretation may be adversely affected Probable Atrial fibrillation Marked ST abnormality, possible inferior subendocardial injury Marked ST abnormality, possible anterior subendocardial injury Prolonged QT Abnormal ECG When compared with ECG of 11-AUG-2022 22:29, (unconfirmed) Significant changes have occurred Confirmed by Max Berrios ([id number]) on 08/12/2022 1:13:48 PM Referred By: REFERRED SELF Confirmed By:Max Berrios
--- NOTE | 2022-08-12 13:15 | Electrocardiogram Report ---
Test Reason : Blood Pressure : / mmHG Vent. Rate : 051 BPM Atrial Rate : 051 BPM P-R Int : 252 ms QRS Dur : 106 ms QT Int : 614 ms P-R-T Axes : 081 063 057 degrees QTc Int : 565 ms Sinus bradycardia with 1st degree A-V block with Premature atrial complexes Prolonged QT Abnormal ECG When compared with ECG of 11-AUG-2022 22:48, (unconfirmed) Significant changes have occurred Confirmed by Max Berrios ([id number]) on 08/12/2022 1:15:28 PM Referred By: REFERRED SELF Confirmed By:Max Berrios
--- NOTE | 2022-08-12 15:57 | Electroencephalogram ---
EEG Procedure Note Date of Service August 12, 2022 Start / End Times Start Time: 10:15 End Time: 10:35 Referring Physician Jose Veras History The patient was admitted after [id number] cardiac arrest, status post CPR. The patient has been having frequent myoclonus. This EEG is ordered to evaluate for epileptogenic activity. Home Medication List Medication Instructions Recorded Confirmed Type esomeprazole magnesium 40 mg 40 mg PO DAILY 08/01/21 08/11/22 History capsule,delayed release hydrochlorothiazide 25 mg tablet 25 mg PO DAILY 08/01/21 08/11/22 History lamotrigine 150 mg tablet 150 mg PO HS 08/01/21 08/11/22 History (Lamictal) lorazepam 1 mg tablet 1 mg PO BID PRN Anxiety 08/01/21 08/11/22 History metoprolol succinate 200 mg 200 mg PO DAILY 08/01/21 08/11/22 History capsule sprinkle, ext. release 24 hr paroxetine HCl 30 mg tablet 60 mg PO QAM 08/01/21 08/11/22 History quetiapine 50 mg tablet 50 mg PO HS 08/01/21 08/11/22 History ergocalciferol (vitamin D2) 1,250 50,000 unit PO WK 08/11/22 08/11/22 History mcg (50,000 unit) capsule (Vitamin D2) olmesartan 5 mg tablet 5 mg PO HS 08/11/22 08/11/22 History simvastatin 20 mg tablet 60 mg PO HS 08/11/22 08/11/22 History Inpatient Medication List Heparin Sodium (Porcine) (Heparin Sod 5,000 Unit/0.5 Ml Vial) 7,500 units SQ Q8 JACQUELINE Stop: 09/11/22 05:59 Last Admin: 08/12/22 13:52 Dose: 7,500 units Documented By: Admin: 08/12/22 05:41 Dose: 7,500 units Documented By: KAMLA Propofol (Diprivan) 1,000 mg in 100 mls @ 0 mls/hr IV .Q0M JACQUELINE; Protocol Stop: 08/14/22 22:29 Last Admin: 08/12/22 13:52 Dose: 40 mcg/kg/min, 24.4 mls/hr Documented By: CLIFF Co-signed By: DEISY Titration: 08/12/22 13:22 Dose: 40 mcg/kg/min, 24.4 mls/hr Documented By: CLIFF Co-signed By: DEISY Admin: 08/12/22 11:54 Dose: Not Given Documented By: Titration: 08/12/22 10:31 Dose: 40 mcg/kg/min, 24.4 mls/hr Documented By: Titration: 08/12/22 09:55 Dose: 0 mcg/kg/min, 0 mls/hr Documented By: Titration: 08/12/22 09:48 Dose: 40 mcg/kg/min, 24.4 mls/hr Documented By: Titration: 08/12/22 09:25 Dose: 30 mcg/kg/min, 18.3 mls/hr Documented By: Admin: 08/12/22 08:44 Dose: 50 mcg/kg/min, 30.5 mls/hr Documented By: CLIFF Co-signed By: HENRI Titration: 08/12/22 07:00 Dose: 40 mcg/kg/min, 24.4 mls/hr Documented By: CLIFF Co-signed By: HEW Titration: 08/12/22 05:36 Dose: 40 mcg/kg/min, 24.4 mls/hr Documented By: Titration: 08/12/22 04:26 Dose: 0 mcg/kg/min, 0 mls/hr Documented By: Titration: 08/11/22 23:36 Dose: 20 mcg/kg/min, 12.2 mls/hr Documented By: Titration: 08/11/22 22:53 Dose: 15 mcg/kg/min, 9.2 mls/hr Documented By: Admin: 08/11/22 22:50 Dose: 10 mcg/kg/min, 6.1 mls/hr Documented By: HOANG Co-signed By: SURESH Norepinephrine Bitartrate (Levophed/D5w) 4 mg in 250 mls @ 19.088 mls/hr IV .Q13H6M [facility]; Protocol Stop: 09/10/22 22:44 Last Admin: 08/12/22 11:38 Dose: Not Given Documented By: Titration: 08/12/22 11:13 Dose: 0 mcg/kg/min, 0 mls/hr Documented By: Titration: 08/12/22 09:05 Dose: 0 mcg/kg/min, 0 mls/hr Documented By: Titration: 08/12/22 04:40 Dose: 0.02 mcg/kg/min, 7.6 mls/hr Documented By: Titration: 08/12/22 04:26 Dose: 0.03 mcg/kg/min, 11.5 mls/hr Documented By: Admin: 08/11/22 22:48 Dose: 0.05 mcg/kg/min, 19.1 mls/hr Documented By: HOANG Co-signed By: SURESH Pantoprazole Sodium 40 mg/ (Syringe) 10 mls @ 5 mls/min IV DAILY@1100 JACQUELINE Stop: 08/15/22 11:01 Last Admin: 08/12/22 09:08 Dose: 5 mls/min Documented By: CLIFF Midazolam HCl (Versed) 125 mg in 250 mls @ 12 mls/hr IV .[id number] PRN; Protocol PRN Reason: sedation/anxiety/seizure Stop: 09/11/22 03:54 Last Titration: 08/12/22 09:05 Dose: 0 mg/hr, 0 mls/hr Documented By: CLIFF Co-signed By: HENRI Titration: 08/12/22 05:37 Dose: 6 mg/hr, 12 mls/hr Documented By: KAMLA Co-signed By: TP Admin: 08/12/22 04:22 Dose: 4 mg/hr, 8 mls/hr Documented By: RODGER Co-signed By: KAMLA Doxycycline Hyclate 100 mg/ (Dextrose) 110 mls @ 50 mls/hr IV Q12H JACQUELINE; Protocol Stop: 08/14/22 06:59 Last Infusion: 08/12/22 11:13 Dose: 0 mls/hr Documented By: Admin: 08/12/22 09:07 Dose: 50 mls/hr Documented By: CLIFF Parenteral Electrolytes (Normosol-R) 1,000 mls @ 70 mls/hr IV .[id number] [facility] Stop: 09/11/22 09:14 Last Admin: 08/12/22 09:55 Dose: 70 mls/hr Documented By: CLIFF Insulin Aspart (Insulin Aspart Per Unit) 0 units SC Q6 JACQUELINE Stop: 09/11/22 05:59 Last Admin: 08/12/22 11:54 Dose: Not Given Documented By: Admin: 08/12/22 06:45 Dose: 2 units Documented By: MIGUEL Co-signed By: KAMLA Midazolam HCl (Midazolam Bolus From Bag) 2 mg IV Q60M PRN PRN Reason: Sedation Stop: 09/11/22 03:54 Last Admin: 08/12/22 04:25 Dose: 6 mg Documented By: RODGER Co-signed By: MIGUEL Miscellaneous (Icu Electrolyte Replacement Protocol) 1 each N/A BID@06,18 JACQUELINE; Protocol Stop: 08/19/22 05:59 Last Admin: 08/12/22 06:48 Dose: Not Given Documented By: KAMLA Discontinued Medications Magnesium Sulfate/Dextrose (Magnesium Sulfate / D5w) 1 gm in 100 mls @ 100 mls/hr IV NOW STA Stop: 08/11/22 23:30 Last Infusion: 08/12/22 00:09 Dose: 0 mls/hr Documented By: Admin: 08/11/22 23:09 Dose: 100 mls/hr Documented By: SHERICE Sodium Chloride (Nss 1000ml) 1,000 mls @ 999 mls/hr IV .Q1H1M ONE Stop: 08/12/22 00:07 Last Infusion: 08/12/22 00:08 Dose: 0 mls/hr Documented By: Admin: 08/11/22 23:07 Dose: 999 mls/hr Documented By: SHERICE Sodium Chloride (Nss 1000ml) 1,000 mls @ 999 mls/hr IV .Q1H1M ONE Stop: 08/12/22 00:11 Last Infusion: 08/12/22 00:12 Dose: 0 mls/hr Documented By: Admin: 08/11/22 23:11 Dose: 999 mls/hr Documented By: SHERICE Ertapenem (Invanz) 10 mls @ 2 mls/min IV NOW ONE Stop: 08/11/22 23:27 Last Admin: 08/12/22 01:28 Dose: 2 mls/min Documented By: SHERICE Potassium Chloride (K Ismael / Wtr) 20 meq in 100 mls @ 50 mls/hr IV ONE ONE; Protocol Stop: 08/12/22 01:23 Last Infusion: 08/12/22 03:42 Dose: 0 mls/hr Documented By: Admin: 08/12/22 01:31 Dose: 50 mls/hr Documented By: SHERICE Magnesium Sulfate/Dextrose (Magnesium Sulfate / D5w) 1 gm in 100 mls @ 100 mls/hr IV NOW STA Stop: 08/12/22 01:23 Last Admin: 08/12/22 00:54 Dose: Not Given Documented By: DL Magnesium Sulfate/Dextrose (Magnesium Sulfate / D5w) 1 gm in 100 mls @ 50 mls/hr IV Q2H JACQUELINE Stop: 08/12/22 11:14 Last Infusion: 08/12/22 13:34 Dose: 0 mls/hr Documented By: Admin: 08/12/22 11:12 Dose: 50 mls/hr Documented By: Infusion: 08/12/22 11:07 Dose: 50 mls/hr Documented By: Admin: 08/12/22 09:07 Dose: 50 mls/hr Documented By: CLIFF Potassium Chloride (K Ismael / Wtr) 20 meq in 100 mls @ 50 mls/hr IV Q2H JACQUELINE Stop: 08/12/22 14:14 Last Infusion: 08/12/22 13:53 Dose: 0 mls/hr Documented By: Admin: 08/12/22 11:54 Dose: 50 mls/hr Documented By: Infusion: 08/12/22 11:54 Dose: 50 mls/hr Documented By: Admin: 08/12/22 10:31 Dose: 50 mls/hr Documented By: CLIFF Magnesium Sulfate/Dextrose (Magnesium Sulfate 1gm / D5w Bag) Confirm Administered Dose 1 gm IV .STK-MED ONE Stop: 08/11/22 22:32 Last Admin: 08/11/22 22:46 Dose: Not Given Documented By: HOANG Midazolam HCl (Midazolam Bolus From Bag) 6 mg IV ONCE ONE Stop: 08/12/22 04:47 Last Admin: 08/12/22 06:40 Dose: Not Given Documented By: KAMLA Miscellaneous (Rapid Sequence Induction Bag) Confirm Administered Dose 1 each .ROUTE .STK-MED ONE Stop: 08/11/22 22:09 Last Admin: 08/11/22 23:09 Dose: Not Given Documented By: SHERICE Miscellaneous (Stat Iv Infusion Titration Per Protocol) 1 each N/A NOW STA Stop: 02/03/23 22:24 Last Admin: 08/11/22 22:51 Dose: 1 each Documented By: AN Mandycellaneous (Stat Iv Infusion Titration Per Protocol) 1 each N/A NOW STA Stop: 08/11/22 22:36 Last Admin: 08/11/22 22:51 Dose: 1 each Documented By: HOANG Galvancellaneous (Icu Protocol For Hyperglycemia) 1 each N/A ACHS JACQUELINE Stop: 08/14/22 07:29 Last Admin: 08/12/22 05:44 Dose: 1 each Documented By: KAMLA Galvancellaneous (Icu Protocol For Hyperglycemia) 1 each N/A ACHS JACQUELINE Stop: 08/14/22 07:29 Last Admin: 08/12/22 05:44 Dose: 1 each Documented By: KAMLA Potassium Chloride (Potassium Chloride 20 Meq/15 Ml Udc) 40 meq PO NOW STA Stop: 08/12/22 09:11 Last Admin: 08/12/22 09:53 Dose: Not Given Documented By: CLIFF Propofol (Propofol Iv Emulsion 10 Mg/Ml 100 Ml Vial) Confirm Administered Dose 1,000 mg IV .STK-MED ONE Stop: 08/11/22 22:30 Last Admin: 08/11/22 22:50 Dose: Not Given Documented By: AN Sodium Bicarbonate (Sodium Bicarb 8.4% Inj 50 Meq/50 Ml Syr) 50 meq IV NOW STA Stop: 08/11/22 22:56 Last Admin: 08/11/22 23:01 Dose: 50 meq Documented By: SHERICE Sodium Bicarbonate (Sodium Bicarb 8.4% Inj 50 Meq/50 Ml Syr) 50 meq IV NOW STA Stop: 08/12/22 00:24 Last Admin: 08/12/22 00:54 Dose: Not Given Documented By: SHERICE Description This is a 21 electrode EEG with a single channel dedicated to limited EKG. The electrodes were placed in accordance with the International 10-20 system. Interpretation Throughout this EEG recording, the patient has been intubated, and having mode rately frequent, myoclonic activity, which affects face, and bilateral upper and lower extremities. Background activity shows diffuse slowing composed of half to 2 Hz, low amplitude delta, intermixed with excessive muscle contraction artifacts, and generalized low amplitude, intermittent, 4 to 5 Hz, theta waveforms. Photic stimulations does not induce posterior driving responses. Tactile, and visual stimulation do not induce reactivity. Myoclonic activity becomes more frequent with stimulation. During myoclonic activity, excessive muscle contraction artifacts are noticed. Just before and after myoclonic activity, EEG returns back to its baseline, which is suggestive of nonepileptic myoclonus, as seen in anoxic brain injury. However, because of excessive muscle contraction artifacts, embedded epileptogenic discharges cannot be ruled out definitively. Impression: This EEG, recorded in the patient's comatose state, is abnormal due to diffuse slowing, consistent with bihemispheric dysfunction, as seen in encephalopathies including anoxic brain injury. Recurrent myoclonic activity likely nonepileptic, however, embedded epileptogenic discharges cannot be ruled out definitively. Clinical Correlation Repeat EEG with paralytics, to differentiate epileptic versus nonepileptic myoclonus,is indicated. At this time, antiepileptic treatment should be started.
[2022-08-12] MEDS ORDERED: levETIRAcetam 1,000 MG in 0.9 % SODIUM CHLORIDE 100 ML IV STA (16:12)
[2022-08-12] MEDS ORDERED: KEPPRA 1000 MG IV SCH (16:15)
[2022-08-12] MEDS ORDERED: VECURONIUM BROMIDE 10 MG VIAL IV STA (16:25)
[2022-08-12] MEDS ORDERED: Patient's HEIGHT &/or WEIGHT Needed SCH (16:30)
[2022-08-12] MEDS ORDERED: ACETAMINOPHEN 1,000 MG/100 ML VIAL IV STA (16:38)
--- NOTE | 2022-08-12 16:52 | Neurology Consultation ---
Date of Consultation August 12, 2022 Assessment & Plan (1) Anoxic encephalopathy: Impression: The patient had initial respiratory arrest, with following cardiac fibrillation, which opioid outside of hospital. EMS arrived and 15 minutes, with successful cardiopulmonary resuscitation. The patient was intubated and emergency department. Initial Lorenzo Coma Scale was only 3. The patient has been having recurrent myoclonus and does not show any sign of cerebral functioning at this time. Plan/recommendations: Based on initial EEG, we will repeat EEG with paralytics. Meanwhile, will start patient on levetiracetam IV 1000 mg twice a day. Prognostic evaluation at third in seventh days post event. Based on history and initial presentation, neurological prognosis is probably poor. However, official evaluation on third day will offer further information. Supportive care. Brain MRI in next few days. We will reevaluate patient after repeat EEG and for prognostication. Thank you for the consultation. 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 However, and battered epileptogenic discharges cannot be ruled out based on first EEG. Recommendations/plan: Repeat EEG with paralytics to differentiate epileptic versus nonepileptic myoclonus. (3) Cardiac arrest with ventricular fibrillation: Impression: Initial respiratory arrest, but secondary to cardiac fibrillation/arrest. Reportedly, the patient has been having wheezing for last few weeks. (4) Cardiopulmonary arrest with successful resuscitation: History of Present Illness Reason for Consultation: AMS, myoclonus, s/p cardiopulmonary arrest Requesting Physician: Cindy Brown MD Attending Physician: Cindy Brown MD History of Present Illness The patient is a 71-year-old female, who was found unresponsive by her , and respiratory distress, and he activated EMS. When they arrived approximately 15 minutes, the patient was pulseless, and required cardioversion with 3 times epinephrine shots. She was intubated in the emergency department. Initial Lorenzo Coma Scale was 3 with periodic agonal breathing. Hypothermia protocol was not initiated because of the patient's significant electrolyte abnormality and prior respiratory problems. Facial myoclonic activity was noticed after intubation, which has become more frequent and prominent. According to , the patient has been having some wheezing for last few weeks, but she did not seek medical attention. Laboratory work-up showed multiorgan insult, and imaging studies did not show intracranial acute pathology. The patient was admitted to the intensive care unit after intubation. EEG was done this morning, which showed diffuse slowing, which was nonreactive, highly suggestive of severe cerebral dysfunction as seen in anoxic encephalopathies. The patient was having frequent myoclonic jerks, with excessive muscle contraction artifacts. 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 The patient does not show any spontaneous movements, eye contact, any posturing or withdrawal to pain. Cardiac rhythm has been stable. We will reevaluate the patient after second EEG. Prognostic evaluation at the third and seventh days. Our impression regarding expected neurological prognosis is explained and discussed with the family. I have answered their questions in detail. I have reviewed the patient's chart including imaging studies and visualized them personally. Allergies Allergy/AdvReac Type Severity Reaction Status Date / Time Penicillins Allergy Intermediate Rash Verified 08/11/22 22:59 codeine AdvReac Intermediate Gastrointestinal Verified 08/11/22 22:59 Upset [id number] Reductase AdvReac Intermediate body aches Verified 08/11/22 22:59 Inhibitor Home Medications Medication Instructions Recorded Confirmed Type esomeprazole magnesium 40 mg 40 mg PO DAILY 08/01/21 08/11/22 History capsule,delayed release hydrochlorothiazide 25 mg tablet 25 mg PO DAILY 08/01/21 08/11/22 History lamotrigine 150 mg tablet 150 mg PO HS 08/01/21 08/11/22 History (Lamictal) lorazepam 1 mg tablet 1 mg PO BID PRN Anxiety 08/01/21 08/11/22 History metoprolol succinate 200 mg 200 mg PO DAILY 08/01/21 08/11/22 History capsule sprinkle, ext. release 24 hr paroxetine HCl 30 mg tablet 60 mg PO QAM 08/01/21 08/11/22 History quetiapine 50 mg tablet 50 mg PO HS 08/01/21 08/11/22 History ergocalciferol (vitamin D2) 1,250 50,000 unit PO WK 08/11/22 08/11/22 History mcg (50,000 unit) capsule (Vitamin D2) olmesartan 5 mg tablet 5 mg PO HS 08/11/22 08/11/22 History simvastatin 20 mg tablet 60 mg PO HS 08/11/22 08/11/22 History Patient History Medical History Bipolar 1 disorder Constipated Fatigue HTN (hypertension) Hyperlipemia IBS (irritable bowel syndrome) Migraine Reflux esophagitis Snoring Family History Father Hypertension Stroke Cancer skin cancer Alcohol abuse Glaucoma Mother Alcohol abuse Grandmother (Maternal) Cancer Hypertension Social History Smoking Status: Unknown if ever smoked Hx Alcohol Use: Yes Alcohol type: hard liquor Alcohol Intake Frequency: 4 or More x per/Week marital status: Current Living Situation: Spouse Review of Systems Review of Systems: Unobtainable due to cognitive status Physical Exam Physical Exam: General Examination: Constitutional: Well developed overweight person sedated and intubated. HENT: Normal exam with inspection. CV: Hearth rhythm is regular. Neck: Supple, no carotid bruits. Lungs: On ventilator. Abdomen: Soft, non-tender, non-distended. Skin: No rash or ecchymosis. Extremities: No edema or cyanosis NEUROLOGICAL EXAMINATION: Mental Status: Comatose Cranial Nerves: Pupils are 4 mm, and very sluggishly reactive to light bilaterally. There is no corneal or gag reflexes. Facial symmetry is preserved. Funduscopy: Unable to assess. Motor: There is no spontaneous movements other than myoclonic jerks. There is no withdrawal to deep painful stimuli. There is no obvious posturing either. Tone: Slightly decreased tone in all extremities Sensory: Unable to assess Coordination: Unable to assess Speech: Nonverbal, and does not follow verbal commands. Gait: Unable to assess Musculoskeletal: Frequent facial muscles, and also less frequent bilateral upper and lower extremity myoclonic jerks are noticed. Results & Data ([facility]) Vital Signs (Past 12 Hours) Vital Signs Temp Pulse Resp BP Pulse Ox O2 Del Method FiO2 08/12/22 16:00 65 08/12/22 16:00 30 08/12/22 15:00 65 26 H 97 30 08/12/22 12:00 35.2 C L 61 21 08/12/22 12:00 110/60 08/12/22 11:00 34.9 C L 63 25 H 08/12/22 11:00 110/61 08/12/22 11:05 59 L 14 99 30 08/12/22 10:01 34.3 C L 54 L 21 99 08/12/22 10:01 105/54 L 08/12/22 10:00 34.3 C L 54 L 24 95 08/12/22 09:01 33.9 C L 49 L 14 99 08/12/22 09:01 129/75 08/12/22 09:00 33.9 C L 53 L 15 97 08/12/22 08:01 33.6 C L 49 L 18 96 08/12/22 08:01 123/74 08/12/22 08:00 33.6 C L 50 L 18 96 08/12/22 07:01 33.3 C L 47 L 16 98 08/12/22 07:01 129/76 08/12/22 07:00 33.3 C L 48 L 18 97 08/12/22 06:45 33.1 C L 46 L 18 98 08/12/22 11:04 54 L 08/12/22 11:04 30 08/12/22 10:55 Mechanical Vent 30 08/12/22 08:00 54 L 08/12/22 08:00 30 08/12/22 07:10 48 L 18 98 30 08/12/22 05:51 128/75 08/12/22 05:51 33.2 C L 47 L 18 97 08/12/22 05:50 33.2 C L 47 L 18 97 08/12/22 05:46 138/79 08/12/22 05:46 33.2 C L 48 L 16 97 08/12/22 05:41 33.2 C L 49 L 18 97 08/12/22 05:41 132/77 08/12/22 05:40 33.2 C L 48 L 16 08/12/22 05:35 133/81 08/12/22 05:35 33.2 C L 49 L 18 08/12/22 05:30 33.2 C L 48 L 18 97 08/12/22 05:30 126/82 08/12/22 05:25 117/73 08/12/22 05:25 33.1 C L 50 L 16 08/12/22 05:21 33.1 C L 49 L 18 97 08/12/22 05:21 119/74 08/12/22 05:20 33.1 C L 49 L 18 08/12/22 05:15 122/78 08/12/22 05:15 33.1 C L 49 L 18 08/12/22 05:11 33.1 C L 48 L 18 98 08/12/22 05:11 129/80 08/12/22 05:10 33.1 C L 48 L 19 08/12/22 05:06 33.0 C L 47 L 18 99 08/12/22 05:00 33.0 C L 48 L 18 98 08/12/22 05:00 133/79 08/12/22 04:55 33.0 C L 48 L 19 100 08/12/22 04:55 141/87 H 08/12/22 04:50 33.0 C L 48 L 18 08/12/22 04:50 147/88 H 08/12/22 04:46 147/87 H 08/12/22 04:46 33.0 C L 48 L 18 99 08/12/22 04:41 157/93 H 08/12/22 04:41 32.9 C L 47 L 18 99 08/12/22 04:40 32.9 C L 48 L 18 99 08/12/22 04:36 32.9 C L 48 L 18 100 08/12/22 04:36 160/91 H 08/12/22 04:31 32.9 C L 48 L 18 100 08/12/22 04:31 166/93 H 08/12/22 06:10 Mechanical Vent 08/12/22 05:59 33.2 C L 20 97 Mechanical Vent 08/12/22 05:00 33.2 C L
[2022-08-12 18:28] LABS: Creatinine Clr Calc Pharmacy 75.4 ml/min; Est GFR (African American) 93.6 ml/min; Est GFR (Non-African American) 80.8 ml/min
[2022-08-12 18:29] LABS: BUN Creatinine Ratio 26.7 (10-20); Calcium 7.8 mg/dl (8.5-10.1); Magnesium 2.1 mg/dl (1.7-2.4); Potassium 3.4 mmol/L (3.5-5.1)
--- NOTE | 2022-08-12 20:43 | Electroencephalogram ---
EEG Procedure Note Date of Service August 12, 2022 Start / End Times Start Time: 16:56 End Time: 17:16 Referring Physician Wayne More MD History The patient was admitted with cardiopulmonary arrest, status post CPR. The patient has been having frequent myoclonic jerks. Initial EEG was very artifactual because of muscle contraction artifacts. There is a repeat EEG with paralytics, to investigate for epileptic versus nonepileptic myoclonus. Home Medication List Medication Instructions Recorded Confirmed Type esomeprazole magnesium 40 mg 40 mg PO DAILY 08/01/21 08/11/22 History capsule,delayed release hydrochlorothiazide 25 mg tablet 25 mg PO DAILY 08/01/21 08/11/22 History lamotrigine 150 mg tablet 150 mg PO HS 08/01/21 08/11/22 History (Lamictal) lorazepam 1 mg tablet 1 mg PO BID PRN Anxiety 08/01/21 08/11/22 History metoprolol succinate 200 mg 200 mg PO DAILY 08/01/21 08/11/22 History capsule sprinkle, ext. release 24 hr paroxetine HCl 30 mg tablet 60 mg PO QAM 08/01/21 08/11/22 History quetiapine 50 mg tablet 50 mg PO HS 08/01/21 08/11/22 History ergocalciferol (vitamin D2) 1,250 50,000 unit PO WK 08/11/22 08/11/22 History mcg (50,000 unit) capsule (Vitamin D2) olmesartan 5 mg tablet 5 mg PO HS 08/11/22 08/11/22 History simvastatin 20 mg tablet 60 mg PO HS 08/11/22 08/11/22 History Inpatient Medication List Heparin Sodium (Porcine) (Heparin Sod 5,000 Unit/0.5 Ml Vial) 7,500 units SQ Q8 JACQUELINE Stop: 09/11/22 05:59 Last Admin: 08/12/22 13:52 Dose: 7,500 units Documented By: Admin: 08/12/22 05:41 Dose: 7,500 units Documented By: KAMLA Propofol (Diprivan) 1,000 mg in 100 mls @ 30.54 mls/hr IV .Q3H17M JACQUELINE; Protocol Stop: 08/14/22 22:29 Last Titration: 08/12/22 18:54 Dose: 50 mcg/kg/min, 30.5 mls/hr Documented By: CLIFF Co-signed By: SG Admin: 08/12/22 18:00 Dose: Not Given Documented By: Admin: 08/12/22 17:48 Dose: 50 mcg/kg/min, 30.5 mls/hr Documented By: CLIFF Co-signed By: ANDRIA Titration: 08/12/22 17:46 Dose: 50 mcg/kg/min, 30.5 mls/hr Documented By: CLIFF Co-signed By: LDS Titration: 08/12/22 17:09 Dose: 50 mcg/kg/min, 30.5 mls/hr Documented By: Titration: 08/12/22 17:03 Dose: 0 mcg/kg/min, 0 mls/hr Documented By: Titration: 08/12/22 16:27 Dose: 50 mcg/kg/min, 30.5 mls/hr Documented By: Admin: 08/12/22 13:52 Dose: 40 mcg/kg/min, 24.4 mls/hr Documented By: CLIFF Co-signed By: CB Titration: 08/12/22 13:22 Dose: 40 mcg/kg/min, 24.4 mls/hr Documented By: CLIFF Co-signed By: CB Admin: 08/12/22 11:54 Dose: Not Given Documented By: Titration: 08/12/22 10:31 Dose: 40 mcg/kg/min, 24.4 mls/hr Documented By: Titration: 08/12/22 09:55 Dose: 0 mcg/kg/min, 0 mls/hr Documented By: Titration: 08/12/22 09:48 Dose: 40 mcg/kg/min, 24.4 mls/hr Documented By: Titration: 08/12/22 09:25 Dose: 30 mcg/kg/min, 18.3 mls/hr Documented By: Admin: 08/12/22 08:44 Dose: 50 mcg/kg/min, 30.5 mls/hr Documented By: CLIFF Co-signed By: HENRI Titration: 08/12/22 07:00 Dose: 40 mcg/kg/min, 24.4 mls/hr Documented By: CLIFF Co-signed By: ESTERW Titration: 08/12/22 05:36 Dose: 40 mcg/kg/min, 24.4 mls/hr Documented By: Titration: 08/12/22 04:26 Dose: 0 mcg/kg/min, 0 mls/hr Documented By: Titration: 08/11/22 23:36 Dose: 20 mcg/kg/min, 12.2 mls/hr Documented By: Titration: 08/11/22 22:53 Dose: 15 mcg/kg/min, 9.2 mls/hr Documented By: Admin: 08/11/22 22:50 Dose: 10 mcg/kg/min, 6.1 mls/hr Documented By: AN Co-signed By: SURESH Norepinephrine Bitartrate (Levophed/D5w) 4 mg in 250 mls @ 19.088 mls/hr IV .Q13H6M [facility]; Protocol Stop: 09/10/22 22:44 Last Admin: 08/12/22 11:38 Dose: Not Given Documented By: Titration: 08/12/22 11:13 Dose: 0 mcg/kg/min, 0 mls/hr Documented By: Titration: 08/12/22 09:05 Dose: 0 mcg/kg/min, 0 mls/hr Documented By: Titration: 08/12/22 04:40 Dose: 0.02 mcg/kg/min, 7.6 mls/hr Documented By: Titration: 08/12/22 04:26 Dose: 0.03 mcg/kg/min, 11.5 mls/hr Documented By: Admin: 08/11/22 22:48 Dose: 0.05 mcg/kg/min, 19.1 mls/hr Documented By: AN Co-signed By: SURESH Pantoprazole Sodium 40 mg/ (Syringe) 10 mls @ 5 mls/min IV DAILY@1100 JACQUELINE Stop: 08/15/22 11:01 Last Admin: 08/12/22 09:08 Dose: 5 mls/min Documented By: CLIFF Midazolam HCl (Versed) 125 mg in 250 mls @ 12 mls/hr IV .[id number] PRN; Protocol PRN Reason: sedation/anxiety/seizure Stop: 09/11/22 03:54 Last Titration: 08/12/22 09:05 Dose: 0 mg/hr, 0 mls/hr Documented By: CLIFF Co-signed By: HENRI Titration: 08/12/22 05:37 Dose: 6 mg/hr, 12 mls/hr Documented By: KAMLA Co-signed By: RAMYA Admin: 08/12/22 04:22 Dose: 4 mg/hr, 8 mls/hr Documented By: RODGER Co-signed By: KAMLA Doxycycline Hyclate 100 mg/ (Dextrose) 110 mls @ 50 mls/hr IV Q12H JACQUELINE; Protocol Stop: 08/14/22 06:59 Last Infusion: 08/12/22 20:10 Dose: 0 mls/hr Documented By: Infusion: 08/12/22 18:54 Dose: 50 mls/hr Documented By: Admin: 08/12/22 17:48 Dose: 50 mls/hr Documented By: Infusion: 08/12/22 11:13 Dose: 0 mls/hr Documented By: Admin: 08/12/22 09:07 Dose: 50 mls/hr Documented By: CLIFF Parenteral Electrolytes (Normosol-R) 1,000 mls @ 70 mls/hr IV .[id number] JACQUELINE Stop: 09/11/22 09:14 Last Infusion: 08/12/22 18:54 Dose: 70 mls/hr Documented By: Infusion: 08/12/22 17:09 Dose: 70 mls/hr Documented By: Admin: 08/12/22 09:55 Dose: 70 mls/hr Documented By: CLIFF Insulin Aspart (Insulin Aspart Per Unit) 0 units SC Q6 JACQUELINE Stop: 09/11/22 05:59 Last Admin: 08/12/22 18:35 Dose: Not Given Documented By: Admin: 08/12/22 11:54 Dose: Not Given Documented By: Admin: 08/12/22 06:45 Dose: 2 units Documented By: MIGUEL Co-signed By: KAMLA Midazolam HCl (Midazolam Bolus From Bag) 2 mg IV Q60M PRN PRN Reason: Sedation Stop: 09/11/22 03:54 Last Admin: 08/12/22 04:25 Dose: 6 mg Documented By: RODGER Co-signed By: MIGUEL Miscellaneous (Icu Electrolyte Replacement Protocol) 1 each N/A BID@06,18 JACQUELINE; Protocol Stop: 08/19/22 05:59 Last Admin: 08/12/22 18:45 Dose: Not Given Documented By: Admin: 08/12/22 06:48 Dose: Not Given Documented By: KAMLA Discontinued Medications Magnesium Sulfate/Dextrose (Magnesium Sulfate / D5w) 1 gm in 100 mls @ 100 mls/hr IV NOW STA Stop: 08/11/22 23:30 Last Infusion: 08/12/22 00:09 Dose: 0 mls/hr Documented By: Admin: 08/11/22 23:09 Dose: 100 mls/hr Documented By: SHERICE Sodium Chloride (Nss 1000ml) 1,000 mls @ 999 mls/hr IV .Q1H1M ONE Stop: 08/12/22 00:07 Last Infusion: 08/12/22 00:08 Dose: 0 mls/hr Documented By: Admin: 08/11/22 23:07 Dose: 999 mls/hr Documented By: SHERICE Sodium Chloride (Nss 1000ml) 1,000 mls @ 999 mls/hr IV .Q1H1M ONE Stop: 08/12/22 00:11 Last Infusion: 08/12/22 00:12 Dose: 0 mls/hr Documented By: Admin: 08/11/22 23:11 Dose: 999 mls/hr Documented By: SHERICE Ertapenem (Invanz) 10 mls @ 2 mls/min IV NOW ONE Stop: 08/11/22 23:27 Last Admin: 08/12/22 01:28 Dose: 2 mls/min Documented By: SHERICE Potassium Chloride (K Ismael / Wtr) 20 meq in 100 mls @ 50 mls/hr IV ONE ONE; Protocol Stop: 08/12/22 01:23 Last Infusion: 08/12/22 03:42 Dose: 0 mls/hr Documented By: Admin: 08/12/22 01:31 Dose: 50 mls/hr Documented By: SHERICE Magnesium Sulfate/Dextrose (Magnesium Sulfate / D5w) 1 gm in 100 mls @ 100 mls/hr IV NOW STA Stop: 08/12/22 01:23 Last Admin: 08/12/22 00:54 Dose: Not Given Documented By: SHERICE Magnesium Sulfate/Dextrose (Magnesium Sulfate / D5w) 1 gm in 100 mls @ 50 mls/hr IV Q2H JACQUELINE Stop: 08/12/22 11:14 Last Infusion: 08/12/22 13:34 Dose: 0 mls/hr Documented By: Admin: 08/12/22 11:12 Dose: 50 mls/hr Documented By: Infusion: 08/12/22 11:07 Dose: 50 mls/hr Documented By: Admin: 08/12/22 09:07 Dose: 50 mls/hr Documented By: CLIFF Potassium Chloride (K Ismael / Wtr) 20 meq in 100 mls @ 50 mls/hr IV Q2H JACQUELINE Stop: 08/12/22 14:14 Last Infusion: 08/12/22 13:53 Dose: 0 mls/hr Documented By: Admin: 08/12/22 11:54 Dose: 50 mls/hr Documented By: Infusion: 08/12/22 11:54 Dose: 50 mls/hr Documented By: Admin: 08/12/22 10:31 Dose: 50 mls/hr Documented By: CLIFF Levetiracetam 1,000 mg/ Sodium (Chloride) 110 mls @ 440 mls/hr IV NOW STA Stop: 08/12/22 16:26 Last Infusion: 08/12/22 17:08 Dose: 0 mls/hr Documented By: Admin: 08/12/22 16:28 Dose: 440 mls/hr Documented By: CLIFF Acetaminophen (Ofirmev) 1,000 mg in 100 mls @ 400 mls/hr IV NOW STA Stop: 08/12/22 16:52 Last Infusion: 08/12/22 17:07 Dose: 0 mls/hr Documented By: Admin: 08/12/22 16:46 Dose: 400 mls/hr Documented By: CLIFF Magnesium Sulfate/Dextrose (Magnesium Sulfate 1gm / D5w Bag) Confirm Administered Dose 1 gm IV .STK-MED ONE Stop: 08/11/22 22:32 Last Admin: 08/11/22 22:46 Dose: Not Given Documented By: HOANG Midazolam HCl (Midazolam Bolus From Bag) 6 mg IV ONCE ONE Stop: 08/12/22 04:47 Last Admin: 08/12/22 06:40 Dose: Not Given Documented By: KAMLA Miscellaneous (Rapid Sequence Induction Bag) Confirm Administered Dose 1 each .ROUTE .STK-MED ONE Stop: 08/11/22 22:09 Last Admin: 08/11/22 23:09 Dose: Not Given Documented By: SHERICE Galvancellaneous (Stat Iv Infusion Titration Per Protocol) 1 each N/A NOW STA Stop: 08/11/22 22:24 Last Admin: 08/11/22 22:51 Dose: 1 each Documented By: HOANG Galvancellaneous (Stat Iv Infusion Titration Per Protocol) 1 each N/A NOW STA Stop: 08/11/22 22:36 Last Admin: 08/11/22 22:51 Dose: 1 each Documented By: HOANG Keyesaneous (Icu Protocol For Hyperglycemia) 1 each N/A ACHS JACQUELINE Stop: 08/14/22 07:29 Last Admin: 08/12/22 05:44 Dose: 1 each Documented By: KAMLA Pickard (Icu Protocol For Hyperglycemia) 1 each N/A ACHS JACQUELINE Stop: 08/14/22 07:29 Last Admin: 08/12/22 05:44 Dose: 1 each Documented By: KAMLA Pickard (Patient's Height &/Or Weight Needed) 1 each N/A Q2H JACQUELINE Stop: 09/11/22 16:29 Last Admin: 08/12/22 16:31 Dose: 1 each Documented By: CLIFF Potassium Chloride (Potassium Chloride 20 Meq/15 Ml Udc) 40 meq PO NOW STA Stop: 08/12/22 09:11 Last Admin: 08/12/22 09:53 Dose: Not Given Documented By: CLIFF Potassium Chloride (Potassium Chloride 20 Meq/15 Ml Udc) 40 meq PO NOW STA Stop: 08/12/22 18:43 Last Admin: 08/12/22 19:13 Dose: 40 meq Documented By: MIGUEL Propofol (Propofol Iv Emulsion 10 Mg/Ml 100 Ml Vial) Confirm Administered Dose 1,000 mg IV .STK-MED ONE Stop: 08/11/22 22:30 Last Admin: 08/11/22 22:50 Dose: Not Given Documented By: HOANG Sodium Bicarbonate (Sodium Bicarb 8.4% Inj 50 Meq/50 Ml Syr) 50 meq IV NOW STA Stop: 08/11/22 22:56 Last Admin: 08/11/22 23:01 Dose: 50 meq Documented By: SHERICE Sodium Bicarbonate (Sodium Bicarb 8.4% Inj 50 Meq/50 Ml Syr) 50 meq IV NOW STA Stop: 08/12/22 00:24 Last Admin: 08/12/22 00:54 Dose: Not Given Documented By: SHERICE Vecuronium [place] (Vecuronium [place] 10 Mg Vial) 10 mg IV NOW STA Stop: 08/12/22 16:26 Last Admin: 08/12/22 17:05 Dose: 10 mg Documented By: CLIFF Co-signed By: HENRI Description This is a 21 electrode EEG with a single channel dedicated to limited EKG. The electrodes were placed in accordance with the International 10-20 system. Interpretation Just prior to EEG recording, propofol drip was stopped. There was increased myoclonic activity with associated muscle contraction artifacts. After 10 mg of vecuronium infusion, gradually, myoclonic jerks stopped, and background activity shows significant, diffuse slowing with very low amplitude waveforms. With paralytic treatment, there was no electrographic epileptiform discharges. Tactile stimuli induced reactivity with increased background activity. During last portion no EEG recording, we have noticed suppression and burst pattern, but suppression episode lasting for 10 to 20 seconds with burst phase lasting from 3 to 6 seconds. Impression: This is an abnormal EEG, recorded in comatose state. Myoclonic a ctivity was suppressed with paralytics, and we have not recorded any epileptogenic activity. Based on this finding, myoclonic activity is considered to be nonepileptic as seen in anoxic encephalopathy. Tactile stimuli induced reactivity, which is a favorable sign for prognosis. However, suppression and burst pattern is considered to be unfavorable sign after anoxic brain injury, which suggests severe, diffuse, cerebral dysfunction. Clinical Correlation As seen above.
[2022-08-12] MEDS ORDERED: NORMOSOL-R 250 ML IV ONE (21:59)
[2022-08-13] MEDS: NOREPINEPHRINE/D5W 4 MG/250 ML PLCT IV SCH ×3 (01:47→20:37)
[2022-08-13] MEDS: ERTAPENEM SODIUM 1,000 MG in SYRINGE 0 ML IV SCH (01:47)
[2022-08-13] MEDS: propofoL 1,000 MG/100 ML VIAL IV SCH ×9 (02:20→22:30)
[2022-08-13] MEDS: levETIRAcetam 1,000 MG in 0.9 % SODIUM CHLORIDE 100 ML IV SCH ×2 (03:47→15:14)
[2022-08-13 04:34] LABS: iSTAT Art Bld Gas pCO2 Correct 34 mmHg (35-46); iSTAT Art Bld Gas pH Corrected 7.482 (7.35-7.45); iSTAT Arterial Blood Gas HCO3 25 meg/L (19-24); iSTAT Arterial Blood Gas pCO2 34 mmHg (35-46); iSTAT Arterial Blood Gas pH 7.48 (7.35-7.45); iSTAT Arterial Blood Gas pO2 59 mmHg (80-95); iSTAT Arterial Blood Gas pO2 C 57; iSTAT Carbon Dioxide 26 mmol/L (24-31); iSTAT FiO2 30 %; iSTAT Hematocrit 33 % (37-47); iSTAT Hemoglobin 11.2 g/dl (12.0-16.0); iSTAT Potassium 3.2 mmol/L (3.3-5.0); iSTAT Site Art Line; iSTAT Sodium 133 mmol/L (135-144)
[2022-08-13 05:11] LABS: Albumin Level 3.2 gm/dl (3.4-5.0); Bilirubin Direct 0.1 mg/dl (0-0.2); Bilirubin,Total 0.4 mg/dl (0.2-1.0); Magnesium 2.1 mg/dl (1.7-2.4); Phosphorus 3.2 mg/dl (2.5-4.9); Total Protein 5.5 gm/dl (6.0-8.3)
[2022-08-13] MEDS: HEPARIN SOD 5,000 UNIT/0.5 ML VIAL SQ SCH ×3 (05:16→21:30)
[2022-08-13] MEDS: ICU ELECTROLYTE REPLACEMENT PROTOCOL SCH ×2 (05:23→17:49)
[2022-08-13 05:40] LABS: Basophils # (auto) 0.04 K/uL (0-0.2); Basophils % (auto) 0.2 %; Eosinophils # (auto) 0.02 K/uL (0-0.50); Eosinophils % (auto) 0.1 %; Hematocrit (blood only) 32.6 % (37.0-47.0); Hemoglobin 11.4 g/dl (12.0-16.0); Immature Granulocytes # (auto) 0.15 K/uL (0.01-0.20); Immature Granulocytes % (auto) 0.8 %; Lymphocytes % (auto) 4.8 %; Mean Corpuscular Hemoglobin 28.9 pg (25.0-34.0); Mean Corpuscular Volume 82.7 fL (80.0-100.0); Mean Platelet Volume 9.1 fL (9.4-12.4); Monocytes # (auto) 0.96 K/uL (0.11-0.59); Monocytes % (auto) 5.1 %; Neutrophils # (auto) 16.68 K/uL (1.40-6.50); Platelet Count 246 K/uL (130-400); RDW Coefficient of Variation 13.4 % (11.5-14.5); RDW Standard Deviation 40.6 fL (36.4-46.3); Red Blood Count 3.94 M/uL (4.20-5.40); White Blood Count 18.75 K/ul (4.8-10.8)
[2022-08-13 05:45] LABS: INR 1.1 (0.9-1.1); Partial Thromboplastin Time 27.4 Seconds (21.0-31.0)
[2022-08-13] MEDS: INSULIN ASPART PER UNIT SC SCH ×4 (06:02→18:05)
[2022-08-13] MEDS: DOXYCYCLINE HYCLATE 100 MG in DEXTROSE 5% 100 ML IV SCH (06:07)
[2022-08-13] MEDS: POTASSIUM CHLORIDE 20 MEQ/15 ML UDC NG SCH ×2 (06:09→08:00)
[2022-08-13] MEDS: fentaNYL citrate 100 MCG/2 ML VIAL IV PRN ×6 (06:10→19:51)
--- NOTE | 2022-08-13 06:17 | Surgery Progress Note ---
Date of Service August 13, 2022 Assessment & Plan (1) Cardiac arrest with ventricular fibrillation: Plan: Patient has been admitted to the ICU due to cardiopulmonary arrest requiring mechanical ventilation. General surgery has been consulted due to concern for bowel ischemia noted on imaging at time of presentation. Patient's abdomen remains nondistended Acidosis noted time of admission has improved with resuscitative measures Due to cardiopulmonary arrest patient's neurologic status is in question. She has been evaluated by the collating machine operator as long with cardiology in the neurology services. At the present time no plans for surgical intervention. Admission and Anticipated Discharge Date Admission Date: August 12, 2022 Supervising Physician Co-Signing Physician Notes I personally saw and evaluated the patient with Cyrus Becerril PA-C and agree with the assessment and plan. 71-year-old female status post cardiopulmonary arrest with successful resuscitation, CT findings concerning for mesenteric ischemia At this point her hemodynamics are improving I think is unlikely she has sarthak ischemia or necrosis at this point We will continue to treat her with supportive care with IV fluids and IV antibiotics Her neurologic function is still unclear at this point No plans for any surgery, surgery will follow in the background and sign off at this time Please call with any questions or concerns Subjective Patient is lying in bed. She is currently on mechanical ventilator. Discussed with stove polisher RN: Patient is receiving propofol for sedation. She has been weaned off Levophed and has not required any other pressors. She has been placed on Keppra for concern for seizure activity. RN notes the patient has had 2 bowel movements over the past 24 hours that were nonbloody. Physical Exam Respiratory: Breath sounds are present bilaterally and aided by ventilator Gastrointestinal (Abdomen): Abdomen is nondistended and nonrigid. Bowel sounds are hypoactive. With palpation this is not appear to elicit a painful response. Results & Data ([facility]) Vital Signs (Past 12 Hours) Vital Signs Temp Pulse Resp BP Pulse Ox Pulse Ox O2 Del Method 08/13/22 06:00 67 21 113/59 L 96 Mechanical Vent 08/13/22 05:30 67 24 97 Mechanical Vent 08/13/22 05:00 68 26 H 107/68 95 Mechanical Vent 08/13/22 04:30 66 25 H 98 Mechanical Vent 08/13/22 04:26 14 08/13/22 04:00 36.7 C 64 18 101/58 L 96 Mechanical Vent 08/13/22 03:30 64 23 97 Mechanical Vent 08/13/22 04:00 08/13/22 03:41 96 08/13/22 03:00 65 23 111/53 L 97 Mechanical Vent 08/13/22 02:30 66 23 95 Mechanical Vent 08/13/22 02:05 65 23 93 08/13/22 02:00 66 22 121/52 L 95 Mechanical Vent 08/13/22 01:30 66 22 95 Mechanical Vent 08/13/22 01:00 66 22 106/61 96 Mechanical Vent 08/13/22 00:30 65 22 95 Mechanical Vent 08/13/22 00:00 36.2 C L 65 21 105/64 95 Mechanical Vent 08/12/22 23:30 66 21 92 Mechanical Vent 08/13/22 00:00 08/12/22 23:00 64 21 113/51 L 96 Mechanical Vent 08/12/22 22:30 64 21 96 Mechanical Vent 08/12/22 22:20 64 20 97 08/12/22 22:00 63 19 113/60 97 Mechanical Vent 08/12/22 21:30 64 21 98 Mechanical Vent 08/12/22 21:00 65 20 109/55 L 97 Mechanical Vent 08/12/22 20:30 65 20 95 Mechanical Vent 08/12/22 20:00 36.2 C L 67 21 133/73 96 Mechanical Vent 08/12/22 19:30 71 18 94 Mechanical Vent 08/12/22 19:00 74 23 111/58 L 93 Mechanical Vent 08/12/22 20:00 Mechanical Vent 08/12/22 20:00 08/12/22 19:30 69 22 92 O2 Del Method FiO2 08/13/22 06:00 40 08/13/22 05:30 40 08/13/22 05:00 40 08/13/22 04:30 40 08/13/22 04:26 40 08/13/22 04:00 30 08/13/22 03:30 30 08/13/22 04:00 30 08/13/22 03:41 Mechanical Vent 08/13/22 03:00 30 08/13/22 02:30 30 08/13/22 02:05 30 08/13/22 02:00 30 08/13/22 01:30 30 08/13/22 01:00 30 08/13/22 00:30 30 08/13/22 00:00 30 08/12/22 23:30 30 08/13/22 00:00 30 08/12/22 23:00 30 08/12/22 22:30 30 08/12/22 22:20 30 08/12/22 22:00 30 08/12/22 21:30 30 08/12/22 21:00 30 08/12/22 20:30 30 08/12/22 20:00 30 08/12/22 19:30 30 08/12/22 19:00 30 08/12/22 20:00 30 08/12/22 20:00 30 08/12/22 19:30 30 PG Care Time/CCT Total # of Minutes Spent Total Time Spent with Patient: Total time spent is greater than 50% in coordination of care (as documented) at patient's floor/unit and/or counseling patient: Coding Level of Care Code 10230 SUB INP/OBS CARE 08/02MIN Diagnoses Cardiac arrest with ventricular fibrillation I46.9; I49.01
[2022-08-13] MEDS ORDERED: MIDAZOLAM HCL 5 MG/ML 1 ML VIAL IV STA ×2 (07:03→18:40)
--- NOTE | 2022-08-13 07:14 | XRay Report ---
SINGLE VIEW CHEST CLINICAL HISTORY: Respiratory failure. FINDINGS: An AP, portable, upright chest radiograph is compared to study dated 08/12/2022 and correlate d with chest CT dated 08/11/2022. Endotracheal and enteric tubes are unchanged in position. The heart i s enlarged. There is prominence of the pulmonary vasculature. There are low lung volumes with depende nt atelectasis. Suspect trace pleural effusions. No pneumothorax is seen. The skeletal structures are osteopenic. Bilateral rib fractures were better seen on the recent CT scan. IMPRESSION: 1. Cardiomegaly with prominence of the pulmonary vasculature. Correlate clinically for evidence of fl uid overload/congestive change. 2. Stable lines and tubes. 3. Suspect small pleural effusions. ACT 112: Negative or not required by law. Electronically signed by: Nahum Jean M.D. 08/13/2022 7:13 AM
[2022-08-13] MEDS: PANTOprazole 40 MG in SYRINGE 0 ML IV SCH (08:00)
--- NOTE | 2022-08-13 08:04 | CT Scan Report ---
CT SCAN OF THE BRAIN WITHOUT IV CONTRAST CLINICAL HISTORY: Cardiac arrest. Hypoxic brain injury. COMPARISON STUDY: CT of the brain dated 08/11/2022. TECHNIQUE: Unenhanced axial CT scan of the brain is performed from the vertex to the skull base. A do se lowering technique was utilized adhering to the principles of ALARA. The examination is compromise d by motion artifact. The patient was scanned twice in an effort to improve image quality. FINDINGS: An endotracheal tube is noted on the senior graduate advisor tomogram. Brain parenchyma: There is age-related involutional change noting mild to moderate subcortical and pe riventricular microangiopathic disease. There is no hemorrhage, mass effect, or evidence of acute ter ritorial ischemia by CT criteria. Luna-white matter differentiation is preserved. No extra-axial flui d collection is seen. Ventricles, sulci, cisterns: Prominent secondary to involutional change. Intracranial vasculature: There is atherosclerotic calcification of the cavernous carotid and vertebr al arteries. Calvarium: Unremarkable. Sinuses and mastoids: There is complete opacification of the left maxillary antrum, left ethmoid sinu ses, the frontal sinus, and the left sphenoid sinuses. Thickening and sclerosis of the left sinus wal ls indicates chronicity. Mild mucosal thickening is noted in the right maxillary antrum, and there is mild mucosal thickening within the right frontal, sphenoidal, and ethmoid sinuses. The mastoid air c ells are well pneumatized. Secretions fill the nasopharynx. Orbits: The bony orbits are grossly intact. There are bilateral ocular lens implants. IMPRESSION: 1. There is no hemorrhage, mass effect, or evidence of acute territorial ischemia by CT criteria noti ng a significantly motion compromised examination. 2. Pansinus disease as above. ACT 112: Negative or not required by law. Electronically signed by: Nahum Jean M.D. 08/13/2022 8:01 AM
--- NOTE | 2022-08-13 08:24 | Critical Care Progress Note ---
Date of Service August 13, 2022 Assessment & Plan (1) Cardiac arrest with ventricular fibrillation: (2) Anoxic encephalopathy: (3) Cardiopulmonary arrest with successful resuscitation: Plan Reason Critically Ill: Patient s/p cardiac arrest that appears to have been p recipitated by respiratory arrest. Patient arrives to ICU with electrolyte derangements, lactic acidosis, respiratory/metabolic acidosis intubated and sedated. Arrival to ICU at 0240. Continue supportive care, follow neurological prognostication, and organ dysfunction. 24 hour events: remains intubated in ICU. Neurology and cardiology consults done. Echo with preserved EF and no RWMA. EEG with burst suppression. Still with high pressure alarms and myoclonus requiring sedation. Recommendations: Neuro -status post cardiac arrest with possibility of anoxic brain injury. EEG did not demonstrate nonconvulsive status and follow-up CT this morning demonstrated no significant intracranial abnormality. Patient is about 36 to 40 hours out from her initial event which may be too soon to definitively prognosticate. May be able to offer more definitive prognostication 72 hours out from initial event. Continue Keppra under the direction of neurology. Unfortunately patient continues to require propofol to keep her sedated and avoid high pressuring vent alarms. May consider MRI scan which may require paralytics but would defer to neurology. Clinical exam is not particularly reassuring for functional status. Family meetings regarding direction of care and progress. Cardiac -now off pressors. Suspect that her cardiac arrest may have been precipitated by respiratory failure. CT of the chest negative for PE or acute pulmonary disease. If the patinet improves neurologically, may require cardiac catheterization and additional evaluation. Appreciate cardiology assistance. Respiratory -hypoxemic and hypercarbic respiratory failure now improved. History of sleep disordered breathing. Continues with high pressure alarms. If respiratory drive intact, may consider PSV. GI -pneumatosis of the bowel with air in the liver concerning for potential ischemic bowel. She is not distended and not septic currently. Agree with general surgery to monitor at this point time without plans for surgical intervention unless the patient should clinically deteriorate and have improved neurological status. Continue empiric antibiotics. Keep n.p.o. for now. RENAL/LYTES -mild hyponatremia. Initiate ICU electrolyte replacement protocol. -no current issues ENDO -glycemic control per protocol. HEME -mild decrease in hemoglobin and hematocrit overnight. No evidence of active bleeding. Continue to follow for now. No indication for transfusion. Okay to continue subcutaneous heparin. ID -day #2 empiric ertapenem doxycycline. White blood cell count elevated but improving. Cultures negative to date. Okay to discontinue doxycycline LINES/IV ACCESS - PIV, Right Femoral Central Line, Arterial line, ETT, OGT, Serrato DVT PROPHYLAXIS - SCDS, Heparin DISPO: ICU while intubated and sedated And will be updated at bedside today. Overall prognosis somewhat unclear. Patient remains critically ill with significant possibility of clinical deterioration and/or . A total of 50 minutes of critical care time spent evaluation management stabilization of this patient including discussion with bedside critical care nurse and respiratory therapist as well as general garden consultant Admission and Anticipated Discharge Date Admission Date: August 12, 2022 Subjective intubated and sedated Review of Systems Review of Systems: Unobtainable due to endotracheal tube Physical Exam Constitutional: + mechanically ventilated intubated and sedated Neck: trachea midline, no thyromegaly Respiratory: normal respiratory effort, lungs clear to auscultation Cardiovascular: RRR, no murmur, no edema Gastrointestinal (Abdomen): normal bowel sounds, soft, nontender, no hepatosplenomegaly Musculoskeletal: Extremities: extremities normal to inspection Skin: no rashes, warm and dry Neurologic: Pupils reactive, dolls eyes present. no withdrawl to pain but patient sedated. Lymphatic: no cervical lymphadenopathy Results & Data Results & Data ([facility]) Vital Signs (Past 12 Hours) Vital Signs Temp Pulse Resp BP Pulse Ox Pulse Ox O2 Del Method 08/13/22 06:30 65 21 97 Mechanical Vent 08/13/22 06:00 67 21 113/59 L 96 Mechanical Vent 08/13/22 05:30 67 24 97 Mechanical Vent 08/13/22 05:00 68 26 H 107/68 95 Mechanical Vent 08/13/22 04:30 66 25 H 98 Mechanical Vent 08/13/22 04:26 14 08/13/22 04:00 36.7 C 64 18 101/58 L 96 Mechanical Vent 08/13/22 03:30 64 23 97 Mechanical Vent 08/13/22 04:00 08/13/22 03:41 96 08/13/22 03:00 65 23 111/53 L 97 Mechanical Vent 08/13/22 02:30 66 23 95 Mechanical Vent 08/13/22 02:05 65 23 93 08/13/22 02:00 66 22 121/52 L 95 Mechanical Vent 08/13/22 01:30 66 22 95 Mechanical Vent 08/13/22 01:00 66 22 106/61 96 Mechanical Vent 08/13/22 00:30 65 22 95 Mechanical Vent 08/13/22 00:00 36.2 C L 65 21 105/64 95 Mechanical Vent 08/12/22 23:30 66 21 92 Mechanical Vent 08/13/22 00:00 08/12/22 23:00 64 21 113/51 L 96 Mechanical Vent 08/12/22 22:30 64 21 96 Mechanical Vent 08/12/22 22:20 64 20 97 08/12/22 22:00 63 19 113/60 97 Mechanical Vent 08/12/22 21:30 64 21 98 Mechanical Vent 08/12/22 21:00 65 20 109/55 L 97 Mechanical Vent 08/12/22 20:30 65 20 95 Mechanical Vent O2 Del Method FiO2 08/13/22 06:30 40 08/13/22 06:00 40 08/13/22 05:30 40 08/13/22 05:00 40 08/13/22 04:30 40 08/13/22 04:26 40 08/13/22 04:00 30 08/13/22 03:30 30 08/13/22 04:00 30 08/13/22 03:41 Mechanical Vent 08/13/22 03:00 30 08/13/22 02:30 30 08/13/22 02:05 30 08/13/22 02:00 30 08/13/22 01:30 30 08/13/22 01:00 30 08/13/22 00:30 30 08/13/22 00:00 30 08/12/22 23:30 30 08/13/22 00:00 30 08/12/22 23:00 30 08/12/22 22:30 30 08/12/22 22:20 30 08/12/22 22:00 30 08/12/22 21:30 30 08/12/22 21:00 30 08/12/22 20:30 30 Critical Care Results & Data Vital Signs (Past 12 Hours) Vital Signs Temp Pulse Resp BP Pulse Ox Pulse Ox O2 Del Method 08/13/22 08:00 65 08/13/22 08:00 08/13/22 06:30 65 21 97 Mechanical Vent 08/13/22 06:00 67 21 113/59 L 96 Mechanical Vent 08/13/22 05:30 67 24 97 Mechanical Vent 08/13/22 05:00 68 26 H 107/68 95 Mechanical Vent 08/13/22 04:30 66 25 H 98 Mechanical Vent 08/13/22 04:26 14 08/13/22 04:00 36.7 C 64 18 101/58 L 96 Mechanical Vent 08/13/22 03:30 64 23 97 Mechanical Vent 08/13/22 04:00 08/13/22 03:41 96 08/13/22 03:00 65 23 111/53 L 97 Mechanical Vent 08/13/22 02:30 66 23 95 Mechanical Vent 08/13/22 02:05 65 23 93 08/13/22 02:00 66 22 121/52 L 95 Mechanical Vent 08/13/22 01:30 66 22 95 Mechanical Vent 08/13/22 01:00 66 22 106/61 96 Mechanical Vent 08/13/22 00:30 65 22 95 Mechanical Vent 08/13/22 00:00 36.2 C L 65 21 105/64 95 Mechanical Vent 08/12/22 23:30 66 21 92 Mechanical Vent 08/13/22 00:00 08/12/22 23:00 64 21 113/51 L 96 Mechanical Vent 08/12/22 22:30 64 21 96 Mechanical Vent 08/12/22 22:20 64 20 97 08/12/22 22:00 63 19 113/60 97 Mechanical Vent 08/12/22 21:30 64 21 98 Mechanical Vent 08/12/22 21:00 65 20 109/55 L 97 Mechanical Vent 08/12/22 20:30 65 20 95 Mechanical Vent O2 Del Method FiO2 08/13/22 08:00 08/13/22 08:00 50 08/13/22 06:30 40 08/13/22 06:00 40 08/13/22 05:30 40 08/13/22 05:00 40 08/13/22 04:30 40 08/13/22 04:26 40 08/13/22 04:00 30 08/13/22 03:30 30 08/13/22 04:00 30 08/13/22 03:41 Mechanical Vent 08/13/22 03:00 30 08/13/22 02:30 30 08/13/22 02:05 30 08/13/22 02:00 30 08/13/22 01:30 30 08/13/22 01:00 30 08/13/22 00:30 30 08/13/22 00:00 30 08/12/22 23:30 30 08/13/22 00:00 30 08/12/22 23:00 30 08/12/22 22:30 30 08/12/22 22:20 30 08/12/22 22:00 30 08/12/22 21:30 30 08/12/22 21:00 30 08/12/22 20:30 30 Lab & Micro Results (Past 24 Hours) RBC 3.94 M/uL (4.20-5.40) L 08/13/22 WBC 18.75 K/ul (4.8-10.8) H 08/13/22 Hgb 11.4 g/dl (12.0-16.0) L 08/13/22 Hct 32.6 % (37.0-47.0) L 08/13/22 MCV 82.7 fL (80.0-100.0) 08/13/22 MCH 28.9 pg (25.0-34.0) 08/13/22 MCHC 35.0 g/dL (32.0-36.0) 08/13/22 RDW Standard Deviation 40.6 fL (36.4-46.3) 08/13/22 RDW Coefficient of Variation 13.4 % (11.5-14.5) 08/13/22 Plt Count 246 K/uL (130-400) 08/13/22 MPV 9.1 fL (9.4-12.4) L 08/13/22 Neutrophils (%) (Auto) 89.0 % 08/13/22 Lymphocytes (%) (Auto) 4.8 % 08/13/22 Monocytes # (Auto) 0.96 K/uL (0.11-0.59) H 08/13/22 Eosinophils # (Auto) 0.02 K/uL (0-0.50) 08/13/22 Immature Granulocyte % (Auto) 0.8 % 08/13/22 Neutrophils # (Auto) 16.68 K/uL (1.40-6.50) H 08/13/22 Lymphocytes # (Auto) 0.90 K/uL (1.2-3.4) L 08/13/22 Monocytes # (Auto) 0.96 K/uL (0.11-0.59) H 08/13/22 Eosinophils # (Auto) 0.02 K/uL (0-0.50) 08/13/22 Basophils # (Auto) 0.04 K/uL (0-0.2) 08/13/22 Immature Granulocyte # (Auto) 0.15 K/uL (0.01-0.20) 3 Na 133 mmol/L (136-145) L 08/12/22 K 3.4 mmol/L (3.5-5.1) L 08/12/22 Cl 98 mmol/L (98-107) 08/12/22 CO2 27 mmol/L (21-32) 08/12/22 Anion Gap 8 (3-11) 08/12/22 BUN 20 mg/dl (6-23) 08/12/22 Creatinine 0.75 mg/dl (0.6-1.2) 08/12/22 Estimated GFR ( Amer) 93.6 ml/min 08/12/22 Estimated GFR (Non-Af Amer) 80.8 ml/min 08/12/22 BUN/Creatinine Ratio 26.7 (10-20) H 08/12/22 Glu 126 mg/dl (70-99(Fasting)) H 08/12/22 Ca 7.8 mg/dl (8.5-10.1) L 08/12/22 Phosphorus Level 3.2 mg/dl (2.5-4.9) 08/13/22 Total Bilirubin 0.4 mg/dl (0.2-1.0) 08/13/22 Direct Bilirubin 0.1 mg/dl (0-0.2) 08/13/22 AST 46 U/L (13-39) H 08/13/22 ALT 75 U/L (7-52) H 08/13/22 Alkaline Phosphatase 79 U/L (34-104) 08/13/22 TP 5.5 gm/dl (6.0-8.3) L 08/13/22 Albumin 3.2 gm/dl (3.4-5.0) L 08/13/22 Mg 2.1 mg/dl (1.7-2.4) 08/13/22 04:15 Calcium Level 7.8 mg/dl (8.5-10.1) L 08/12/22 17:51 Prothromb Time International Ratio 1.1 (0.9-1.1) 08/13/22 04:1 5 Filippo Test NA 08/13/22 04:17 Microbiology 08/11/22 23:15 Aerobic Blood Culture - Preliminary Blood No growth in Aerobic bottle after 24 hours. Anaerobic Blood Culture - Preliminary No growth in Anaerobic bottle after 24 hours. 08/11/22 23:17 Aerobic Blood Culture - Preliminary Blood No growth in Aerobic bottle after 24 hours. Anaerobic Blood Culture - Preliminary No growth in Anaerobic bottle after 24 hours. Diagnostic Findings (Past 24 Hours) Chest X-Ray 08/13/22 04:00 SINGLE VIEW CHEST CLINICAL HISTORY: Respiratory failure. FINDINGS: An AP, portable, upright chest radiograph is compared to study dated 08/12/2022 and correlated with chest CT dated 08/11/2022. Endotracheal and enteric tubes are unchanged in position. The heart is enlarged. There is prominence of the pulmonary vasculature. There are low lung volumes with dependent atelectasis. Suspect trace pleural effusions. No pneumothorax is seen. The skeletal structures are osteopenic. Bilateral rib fractures were better seen on the recent CT scan. IMPRESSION: 1. Cardiomegaly with prominence of the pulmonary vasculature. Correlate clinically for evidence of fluid overload/congestive change. 2. Stable lines and tubes. 3. Suspect small pleural effusions. ACT 112: Negative or not required by law. Electronically signed by: Nahum Jean M.D. 08/13/2022 7:[address] 08/13/22 07:00 CT SCAN OF THE BRAIN WITHOUT IV CONTRAST CLINICAL HISTORY: Cardiac arrest. Hypoxic brain injury. COMPARISON STUDY: CT of the brain dated 08/11/2022. TECHNIQUE: Unenhanced axial CT scan of the brain is performed from the vertex to the skull base. A dose lowering technique was utilized adhering to the principles of ALARA. The examination is compromised by motion artifact. The patient was scanned twice in an effort to improve image quality. FINDINGS: An endotracheal tube is noted on the pattern grader supervisor tomogram. Brain parenchyma: There is age-related involutional change noting mild to moderate subcortical and periventricular microangiopathic disease. There is no hemorrhage, mass effect, or evidence of acute territorial ischemia by CT criteria. Luna-white matter differentiation is preserved. No extra-axial fluid collection is seen. Ventricles, sulci, cisterns: Prominent secondary to involutional change. Intracranial vasculature: There is atherosclerotic calcification of the cavernous carotid and vertebral arteries. Calvarium: Unremarkable. Sinuses and mastoids: There is complete opacification of the left maxillary antrum, left ethmoid sinuses, the frontal sinus, and the left sphenoid sinuses. Thickening and sclerosis of the left sinus stovall indicates chronicity. Mild mucosal thickening is noted in the right maxillary antrum, and there is mild mucosal thickening within the right frontal, sphenoidal, and ethmoid sinuses. The mastoid air cells are well pneumatized. Secretions fill the nasopharynx. Orbits: The bony orbits are grossly intact. There are bilateral ocular lens implants. IMPRESSION: 1. There is no hemorrhage, mass effect, or evidence of acute territorial ischemia by CT criteria noting a significantly motion compromised examination. 2. Pansinus disease as above. ACT 112: Negative or not required by law. Electronically signed by: Nahum Jean M.D. 08/13/2022 8:01 AM I & O Totals 24 Hours 08/12/22 08/13/22 08/14/22 06:59 06:59 06:59 Intake Total 2386.145 / 2420.280 2752.585 / 2752.585 54.392 / 54.392 Output Total 231 / 231 1282 / 1282 Balance 2155.145 / 2189.280 1470.585 / 1470.585 54.392 / 54.392 Cumulative 08/11/22 21:58 thru 08/13/22 07:01 Intake Total 5193.122 Output Total 1513 Balance 3680.122 RT Ventilator Mngmt (Last Documented) Ventilator Ordered Settings Ventilator Support Mode Assist Control 08/13/22 08:00 Respiratory Rate 21 08/13/22 06:30 Ventilator Tidal Volume 305 08/13/22 08:00 Setting Minute Ventilation 8 08/13/22 02:05 Positive End Expiratory 5 08/13/22 08:00 Pressure Fraction of Inspired Oxygen 50 08/13/22 08:00 Machine Comment post ABG- Teja Veras aware 08/13/22 04:26 Ventilator - PT Measurements Respiratory Rate 21 Exhaled Tidal Volume 351 Minute Ventilation 8 Peak Inspiratory Airway 20 Pressure Plateau Pressure 17 Respiratory Cycle Inspiratory: 1:1.8 Expiratory Ratio Inspiratory Phase Time 1.0 End-Tidal CO2 31 Static Lung Compliance 29.17 Dynamic Lung Compliance 23.40 Normal Static Lung Compliance 46.00 Patient Measurements Comment ETT pulled back to 23 per QUAN Veras Coding Level of Care Code Critical Care 1st 30-74 mins Diagnoses Cardiac arrest with ventricular fibrillation I46.9; I49.01 Anoxic encephalopathy G93.1 Cardiopulmonary arrest with successful resuscitation I46.9
--- NOTE | 2022-08-13 10:04 | Cardiology Progress Note ---
Date of Service August 13, 2022 Assessment & Plan (1) Cardiopulmonary arrest with successful resuscitation: Plan: -sedated, paralyzed, and ventilated. -management per ICU team. -off all pressors. -left ventricular systolic function normal. -will need a cardiac catheterization if she survives. -poor prognosis. Admission and Anticipated Discharge Date Admission Date: August 12, 2022 Subjective The patient is sedated, paralyzed, and intubated in the intensive care unit. Physical Exam Physical Exam: In general, this is an obese white female lying supine in bed no acute distress. HEENT exam notes an endotracheal tube in place. Neck is supple with full carotid upstrokes. Jugular is pressure cannot be assessed. Cardiovascular exam reveals a regular rhythm with distant heart sounds. No obvious murmurs. Lungs note coarse breath sounds throughout. Abdomen is obese. Extremities note trace pretibial edema. Results & Data ([facility]) Vital Signs (Past 12 Hours) Vital Signs Temp Pulse Resp BP Pulse Ox Pulse Ox O2 Del Method 08/13/22 08:14 Mechanical Vent 08/13/22 08:00 65 08/13/22 08:00 08/13/22 06:30 65 21 97 Mechanical Vent 08/13/22 06:00 67 21 113/59 L 96 Mechanical Vent 08/13/22 05:30 67 24 97 Mechanical Vent 08/13/22 05:00 68 26 H 107/68 95 Mechanical Vent 08/13/22 04:30 66 25 H 98 Mechanical Vent 08/13/22 04:26 14 08/13/22 04:00 36.7 C 64 18 101/58 L 96 Mechanical Vent 08/13/22 03:30 64 23 97 Mechanical Vent 08/13/22 04:00 08/13/22 03:41 96 08/13/22 03:00 65 23 111/53 L 97 Mechanical Vent 08/13/22 02:30 66 23 95 Mechanical Vent 08/13/22 02:05 65 23 93 08/13/22 02:00 66 22 121/52 L 95 Mechanical Vent 08/13/22 01:30 66 22 95 Mechanical Vent 08/13/22 01:00 66 22 106/61 96 Mechanical Vent 08/13/22 00:30 65 22 95 Mechanical Vent 08/13/22 00:00 36.2 C L 65 21 105/64 95 Mechanical Vent 08/12/22 23:30 66 21 92 Mechanical Vent 08/13/22 00:00 08/12/22 23:00 64 21 113/51 L 96 Mechanical Vent 08/12/22 22:30 64 21 96 Mechanical Vent 08/12/22 22:20 64 20 97 O2 Del Method FiO2 08/13/22 08:14 50 08/13/22 08:00 08/13/22 08:00 50 08/13/22 06:30 40 08/13/22 06:00 40 08/13/22 05:30 40 08/13/22 05:00 40 08/13/22 04:30 40 08/13/22 04:26 40 08/13/22 04:00 30 08/13/22 03:30 30 08/13/22 04:00 30 08/13/22 03:41 Mechanical Vent 08/13/22 03:00 30 08/13/22 02:30 30 08/13/22 02:05 30 08/13/22 02:00 30 08/13/22 01:30 30 08/13/22 01:00 30 08/13/22 00:30 30 08/13/22 00:00 30 08/12/22 23:30 30 08/13/22 00:00 30 08/12/22 23:00 30 08/12/22 22:30 30 08/12/22 22:20 30 Diagnostic Findings entry level programmer is benign. PG Care Time/CCT Total # of Minutes Spent Total Time Spent with Patient: Total time spent is greater than 50% in coordination of care (as documented) at patient's floor/unit and/or counseling patient: Coding Level of Care Code 46508 SUB INP/OBS CARE 3/50MIN Diagnoses Cardiopulmonary arrest with successful resuscitation I46.9
--- NOTE | 2022-08-13 10:31 | Electrocardiogram Report ---
Test Reason : Blood Pressure : / mmHG Vent. Rate : 048 BPM Atrial Rate : 048 BPM P-R Int : 250 ms QRS Dur : 084 ms QT Int : 586 ms P-R-T Axes : 039 015 088 degrees QTc Int : 523 ms Sinus bradycardia with 1st degree A-V block Anteroseptal infarct , age undetermined Prolonged QT Abnormal ECG When compared with ECG of 12-AUG-2022 00:18, Premature atrial complexes are no longer Present Questionable change in QRS duration Anteroseptal infarct is now Present Confirmed by Max Berrios ([id number]) on 08/13/2022 10:31:22 AM Referred By: REFERRED SELF Confirmed By:Max Berrios
--- NOTE | 2022-08-13 10:37 | Electrocardiogram Report ---
Test Reason : Blood Pressure : / mmHG Vent. Rate : 069 BPM Atrial Rate : 069 BPM P-R Int : 232 ms QRS Dur : 080 ms QT Int : 452 ms P-R-T Axes : 079 008 066 degrees QTc Int : 484 ms Sinus rhythm with 1st degree A-V block Inferior infarct (cited on or before 12-AUG-2022) Anterior infarct (cited on or before 12-AUG-2022) Abnormal ECG When compared with ECG of 12-AUG-2022 07:03, (unconfirmed) Questionable change in initial forces of Septal leads Nonspecific T wave abnormality has replaced inverted T waves in Lateral leads Confirmed by Max Berrios ([id number]) on 08/13/2022 10:36:55 AM Referred By: REFERRED SELF Confirmed By:Max Berrios
--- NOTE | 2022-08-13 10:45 | Electrocardiogram Report ---
Test Reason : Blood Pressure : / mmHG Vent. Rate : 066 BPM Atrial Rate : 066 BPM P-R Int : 256 ms QRS Dur : 082 ms QT Int : 452 ms P-R-T Axes : 064 010 072 degrees QTc Int : 473 ms Sinus rhythm with 1st degree A-V block Possible Inferior infarct (cited on or before 12-AUG-2022) Poor R wave progression, consider anterior VA vs. lead placement vs. LVH Abnormal ECG When compared with ECG of 12-AUG-2022 15:45, (unconfirmed) Nonspecific T wave abnormality no longer evident in Anterior leads Confirmed by Max Berrios ([id number]) on 08/13/2022 10:44:37 AM Referred By: REFERRED SELF Confirmed By:Max Berrios
[2022-08-13] MEDS: NORMOSOL-R 1,000 ML IV SCH (12:10)
[2022-08-13] MEDS: DEXTROSE 50% 50 ML SYRINGE IV PRN ×2 (13:39→18:01)
[2022-08-13] MEDS ORDERED: D5W AND 1/2NSS 1,000 ML IV SCH (14:00)
--- NOTE | 2022-08-13 15:40 | Hospitalist Progress Note ---
Date of Service August 13, 2022 Assessment & Plan (1) Cardiopulmonary arrest with successful resuscitation: Plan: Patient suffered Out of hospital cardiac arrest, following likely respiratory failure Successfully resuscitated, achieved ROSC Intubated , sedated and ventilated in the ICU Head CT did not show any acute pathology a high possibility of anoxic brain injury Solid [employer] Tuber Machine Operator, cardiology neurology on board, appreciate recs EEG suggests anoxic brain injury the likely source of her myoclonus and not epileptics seizure In terms of prognostication, the picture will become clearer about 72 hrs from the initial assessment. In the meantime, continue Continue Keppra under the direction of neurology. Continue Intubation and sedation. Per street photographer, propofol may be turned off in the next 24 hrs, although patient continues to require propofol to keep her sedated and avoid high pressuring vent alarms. Patient may need MRI scan which may require paralytics but would leave that decision to neurology. Family was updated at the bedside Prognosis looks poor palliative has been consulted to lead the discussion with the family regarding goals of care (2) Ischemic bowel syndrome: Plan: Initially thought to have had ischemic bowel on CT However, patient has had multiple bowel movements without blood GI on board, no indication for any procedure for now (3) Respiratory failure requiring intubation: Plan: currently intubated, sedated and ventilated Appreciate street photographer (4) Nocturnal hypoxemia: (5) Moderate obstructive sleep apnea: (6) Bipolar 1 disorder: (7) HTN (hypertension): (8) Hyperlipemia: (9) Shock: Plan Poor prognosis Admission and Anticipated Discharge Date Admission Date: August 12, 2022 Subjective patient seen and examined, family by bedside, she is sedated, paralyzed, and intubated Review of Systems Review of Systems: unable to obtain Physical Exam Physical Exam: The patient is intubated, sedated and ventilated HEENT--PERRL, EOMI, mucous membranes and oropharynx mildly dry Neck- No JVD. No bruits. Thyroid normal, trachea midline, no adenopathy. Heart--normal S1 and S2. No murmurs, rubs or gallops. Lungs--clear bilaterally, no respiratory distress, no accessory muscle use. Abdomen--normal bowel sounds and soft. Extremities--no cyanosis or clubbing. No edema. Dermatologic--normal skin turgor, normal color, no abnormal lymph nodes, no rash. Neurologic--intubated Rheumatologic--unable to fully assess Psychiatric--intubated Results & Data Results & Data ([facility]) Vital Signs (Past 12 Hours) Vital Signs Temp Pulse Resp BP Pulse Ox Pulse Ox O2 Del Method 08/13/22 14:00 99.0 F 74 33 H 93 08/13/22 13:00 98.8 F 74 28 H 93 08/13/22 12:00 98.6 F 73 29 H 94 08/13/22 14:46 75 32 H 94 08/13/22 11:25 73 28 H 94 08/13/22 07:30 69 26 H 96 08/13/22 11:00 98.2 F 73 31 H 94 08/13/22 10:00 97.9 F 75 29 H 93 08/13/22 09:00 97.7 F 70 27 H 92 08/13/22 08:00 98.2 F 73 21 98 08/13/22 07:02 67 31 H 93 08/13/22 07:02 119/69 08/13/22 07:00 66 29 H 93 08/13/22 11:21 73 08/13/22 11:21 08/13/22 08:14 Mechanical Vent 08/13/22 08:00 65 08/13/22 08:00 08/13/22 06:30 65 21 97 Mechanical Vent 08/13/22 06:00 67 21 113/59 L 96 Mechanical Vent 08/13/22 05:30 67 24 97 Mechanical Vent 08/13/22 05:00 68 26 H 107/68 95 Mechanical Vent 08/13/22 04:30 66 25 H 98 Mechanical Vent 08/13/22 04:26 14 08/13/22 04:00 98.1 F 64 18 101/58 L 96 Mechanical Vent 08/13/22 04:00 08/13/22 03:41 96 O2 Del Method FiO2 08/13/22 14:00 08/13/22 13:00 08/13/22 12:00 08/13/22 14:46 50 08/13/22 11:25 40 08/13/22 07:30 40 08/13/22 11:00 08/13/22 10:00 08/13/22 09:00 08/13/22 08:00 08/13/22 07:02 08/13/22 07:02 08/13/22 07:00 08/13/22 11:21 08/13/22 11:21 50 08/13/22 08:14 50 08/13/22 08:00 08/13/22 08:00 50 08/13/22 06:30 40 08/13/22 06:00 40 08/13/22 05:30 40 08/13/22 05:00 40 08/13/22 04:30 40 08/13/22 04:26 40 08/13/22 04:00 30 08/13/22 04:00 30 08/13/22 03:41 Mechanical Vent PG Care Time/CCT Total # of Minutes Spent Total Time Spent with Patient: Total time spent is greater than 50% in coordination of care (as documented) at patient's floor/unit and/or counseling patient: Coding Level of Care Code 66231 SUB INP/OBS CARE 2/35MIN Diagnoses Cardiopulmonary arrest with successful resuscitation I46.9 Ischemic bowel syndrome K55.9 Respiratory failure requiring intubation J96.90 Nocturnal hypoxemia G47.34 Moderate obstructive sleep apnea G47.33 Bipolar 1 disorder F31.9 HTN (hypertension) I10 Hyperlipemia E78.5 Shock R57.9 Time Spent (min) 35
[2022-08-13] MEDS ORDERED: FUROSEMIDE INJ 20 MG/2 ML VIAL IV ONE (18:39)
[2022-08-13] MEDS: ACETAMINOPHEN 1,000 MG/100 ML VIAL IV PRN (19:08)
[2022-08-13] MEDS: D5W AND NSS 1,000 ML IV SCH (19:51)
[2022-08-13 20:33] LABS: iSTAT Arterial Blood Gas HCO3 27 meg/L (19-24); iSTAT Arterial Blood Gas pCO2 53 mmHg (35-46); iSTAT Arterial Blood Gas pH 7.32 (7.35-7.45); iSTAT Arterial Blood Gas pO2 71 mmHg (80-95); iSTAT Carbon Dioxide 28 mmol/L (24-31); iSTAT FiO2 50 %; iSTAT Site Art Line
[2022-08-13 22:48] LABS: iSTAT Arterial Blood Gas HCO3 27 meg/L (19-24); iSTAT Arterial Blood Gas pCO2 42 mmHg (35-46); iSTAT Arterial Blood Gas pH 7.41 (7.35-7.45); iSTAT Arterial Blood Gas pO2 74 mmHg (80-95); iSTAT Carbon Dioxide 28 mmol/L (24-31); iSTAT Site Art Line
[2022-08-14] MEDS: INSULIN ASPART PER UNIT SC SCH ×4 (00:33→18:00)
[2022-08-14] MEDS: ERTAPENEM SODIUM 1,000 MG in SYRINGE 0 ML IV SCH (01:58)
[2022-08-14] MEDS: propofoL 1,000 MG/100 ML VIAL IV SCH ×15 (02:51→23:56)
[2022-08-14] MEDS: levETIRAcetam 1,000 MG in 0.9 % SODIUM CHLORIDE 100 ML IV SCH ×2 (03:55→16:50)
[2022-08-14] MEDS: ACETAMINOPHEN 1,000 MG/100 ML VIAL IV PRN ×3 (04:01→19:36)
[2022-08-14 04:58] LABS: Basophils # (auto) 0.04 K/uL (0-0.2); Basophils % (auto) 0.2 %; Eosinophils # (auto) 0.38 K/uL (0-0.50); Eosinophils % (auto) 2.2 %; Hematocrit (blood only) 29.7 % (37.0-47.0); Hemoglobin 10.2 g/dl (12.0-16.0); Immature Granulocytes # (auto) 0.28 K/uL (0.01-0.20); Immature Granulocytes % (auto) 1.6 %; Lymphocytes # (auto) 1.06 K/uL (1.2-3.4); Lymphocytes % (auto) 6.2 %; Mean Corpuscular Hgb Conc 34.3 g/dL (32.0-36.0); Mean Corpuscular Volume 84.4 fL (80.0-100.0); Monocytes # (auto) 0.96 K/uL (0.11-0.59); Monocytes % (auto) 5.6 %; Neutrophils # (auto) 14.36 K/uL (1.40-6.50); Neutrophils % (auto) 84.2 %; Platelet Count 230 K/uL (130-400); RDW Coefficient of Variation 14.2 % (11.5-14.5); RDW Standard Deviation 43.2 fL (36.4-46.3); Red Blood Count 3.52 M/uL (4.20-5.40); White Blood Count 17.08 K/ul (4.8-10.8)
[2022-08-14] MEDS: D5W AND NSS 1,000 ML IV SCH (05:04)
[2022-08-14] MEDS: HEPARIN SOD 5,000 UNIT/0.5 ML VIAL SQ SCH ×3 (05:05→21:41)
[2022-08-14 05:21] LABS: Partial Thromboplastin Ratio 1.1; Partial Thromboplastin Time 30.8 Seconds (21.0-31.0); Prothrombin Time 10.7 Seconds (9.0-12.0)
[2022-08-14 05:26] LABS: Est GFR (African American) 98.3 ml/min; Est GFR (Non-African American) 84.9 ml/min; Potassium 3.5 mmol/L (3.5-5.1)
[2022-08-14 05:27] LABS: BUN Creatinine Ratio 23.6 (10-20); Bilirubin Direct 0.1 mg/dl (0-0.2); Bilirubin,Total 0.4 mg/dl (0.2-1.0); Calcium 7.5 mg/dl (8.5-10.1); Creatinine Clr Calc Pharmacy 79.4 ml/min; Magnesium 1.8 mg/dl (1.7-2.4); Phosphorus 2.4 mg/dl (2.5-4.9); Total Protein 5.3 gm/dl (6.0-8.3)
[2022-08-14] MEDS: ICU ELECTROLYTE REPLACEMENT PROTOCOL SCH ×2 (05:29→17:53)
[2022-08-14] MEDS ORDERED: POTASSIUM PHOS 3 MMOL/1 ML INFUSION IV STA (05:32)
[2022-08-14] MEDS ORDERED: POTASSIUM PHOSPHATE 8 MMOL in SODIUM CHLORIDE 0.9% 250 ML IV ONE (06:00)
[2022-08-14] MEDS: MAGNESIUM SULFATE / D5W 1 GM/100 ML BAG IV SCH ×3 (06:06→15:56)
[2022-08-14] MEDS ORDERED: FUROSEMIDE 40 MG/4 ML VIAL IV ONE (07:26)
--- NOTE | 2022-08-14 07:33 | Critical Care Progress Note ---
Date of Service August 14, 2022 Assessment & Plan (1) Cardiac arrest with ventricular fibrillation: (2) Anoxic encephalopathy: (3) Cardiopulmonary arrest with successful resuscitation: Plan Reason Critically Ill: Patient s/p cardiac arrest that appears to have been p recipitated by respiratory arrest. Patient arrives to ICU with electrolyte derangements, lactic acidosis, respiratory/metabolic acidosis intubated and sedated. Arrival to ICU at 0240. Continue supportive care, follow neurological prognostication, and organ dysfunction. 24 hour events: remains intubated in ICU. Neurology and cardiology consults done. Echo with preserved EF and no RWMA. EEG with burst suppression. Still with high pressure alarms and myoclonus requiring sedation. Recommendations: Neuro:- status post cardiac arrest with possibility of anoxic brain injury EEG did not demonstrate nonconvulsive status and follow-up CT 08/13/2022 showed no significant intracranial abnormality. Continue Keppra under the direction of neurology Cardiac -now off pressors. Suspect that her cardiac arrest may have been precipitated by respiratory failure. CT of the chest negative for PE or acute pulmonary disease. If the patinet improves neurologically, may require cardiac catheterization and additional evaluation. Appreciate cardiology assistance. Respiratory - -- VDRF Likely secondary to cardiac arrest leading to hypoxemic and hypercarbic respiratory failure Continue with ventilatory support History of sleep disordered breathing. Continues with high pressure alarms. If respiratory drive intact, may consider PSV. GI - -- Pneumatosis of the bowel with air in the liver Concerning for potential ischemic bowel. She is not distended and not septic currently. General surgery to monitor at this point time without plans for surgical intervention unless the patient should clinically deteriorate and have improved neurological status. Continue empiric antibiotics. RENAL/LYTES - Continue ICU electrolyte replacement protocol. -no current issues ENDO - Continue with ICU hyperglycemia protocol HEME - Monitor H&H ID - day #3 empiric ertapenem. Doxycycline discontinued 08/13/22 Cultures negative to date. --Prophylaxis VTE: Heparin GI: Pantoprazole Lines: Right femoral catheter, arterial line, Serrato, ETT Diet: N.p.o. Plan: In/out: +2.7 L, urine output 1511, total +6 L since coming to the hospital I increase the PEEP to 7 and went down on FiO2 to 40%. Give a dose of 40 mg of Lasix today Hypomagnesemia, hypophosphatemia as well as hypokalemia being replaced Continue with antibiotics for the time being covering for gram-negative and anaerobes Try to go down on propofol and give fentanyl pushes instead. Go down on IV fluids to 75 mill an hour. We will consider MRI in the next 24-48 hours. We will speak with surgery to see if we can consider giving tube feeds I have personally spent 48 minutes of critical care time in the direct management of this patient. This is a life/limb threatening event. This includes time spent evaluating patient, direct bedside care, chart review, placing orders, interpretation of diagnostic studies, discussion with consultants, patient, and family members, as well as other required patient management activities. This time is exclusive of all separately billable procedures, and teaching time and separate from and in addition to any other critical care service time. Please note the above document was generated using voice recognition software. It may contain grammatical, syntax or spelling errors. Admission and Anticipated Discharge Date Admission Date: August 12, 2022 Subjective Patient seen and examined at bedside. No acute distress, no adverse events ove rntoribio Patient was on propofol 50 at the time of examination She was breathing over the vent Saturation 97% on 50% FiO2 PEEP of 5 Has been afebrile. Not following any commands, not opening her eyes Review of Systems Review of Systems: All systems reviewed & are unremarkable except as noted in Subjective Physical Exam Physical Exam: Constitutional: No acute distress HEENT: PERRLA, positive ETT Respiratory system: Decreased air entry bilaterally,No wheeze, no rhonchi, positive crackles bilateral lower lobe CVS: S1-S2 positive, no murmurs or gallops Abdomen: Soft, nontender, nondistended, positive bowel sounds x4, obese Extremities: +2 pulses bilaterally radialis/ dorsalis pedis, no cyanosis, no edema Neuro: Sedated, breathing over the vent, positive pupillary, positive gag and cough Psych: Unable to assess G/U: Positive Serrato Skin: no rashes, warm and dry Lymphatic: no cervical or axillary lymphadenopathy Results & Data Results & Data ([facility]) Vital Signs (Past 12 Hours) Vital Signs Temp Pulse Resp BP Pulse Ox Pulse Ox O2 Del Method 08/14/22 07:17 78 25 H 97 08/14/22 06:00 37.0 C 79 20 117/61 97 Mechanical Vent 08/14/22 05:30 37.1 C 80 19 97 Mechanical Vent 08/14/22 05:00 37.2 C 81 22 124/61 96 Mechanical Vent 08/14/22 04:30 37.4 C 83 23 95 Mechanical Vent 08/14/22 04:00 37.6 C H 85 26 H 143/73 H 96 Mechanical Vent 08/14/22 03:30 37.4 C 83 26 H 96 Mechanical Vent 08/14/22 04:00 08/14/22 03:15 81 25 H 97 08/14/22 03:00 37.3 C 80 23 127/61 97 Mechanical Vent 08/14/22 02:30 37.1 C 81 25 H 96 Mechanical Vent 08/14/22 03:00 97 08/14/22 02:00 37.0 C 81 23 123/59 L 97 Mechanical Vent 08/14/22 01:30 36.9 C 80 23 97 Mechanical Vent 08/14/22 01:00 36.9 C 78 23 127/60 97 Mechanical Vent 08/14/22 00:30 37.0 C 79 22 97 Mechanical Vent 08/14/22 00:00 37.0 C 77 20 121/53 L 97 Mechanical Vent 08/14/22 00:00 08/13/22 23:30 37.0 C 76 21 98 Mechanical Vent 08/13/22 23:00 36.9 C 75 21 112/55 L 99 Mechanical Vent 08/13/22 22:48 76 21 98 08/13/22 22:30 36.9 C 75 20 98 Mechanical Vent 08/13/22 22:00 36.9 C 75 20 110/41 L 97 Mechanical Vent 08/13/22 21:30 36.8 C 76 20 97 Mechanical Vent 08/13/22 21:00 37.0 C 74 18 114/59 L 96 Mechanical Vent 08/13/22 20:30 37.3 C 80 18 93 Mechanical Vent 08/13/22 20:00 37.5 C 82 18 99/57 L 92 Mechanical Vent 08/13/22 19:30 37.8 C H 84 20 92 Mechanical Vent 08/13/22 20:00 Mechanical Vent 08/13/22 20:00 08/13/22 19:59 85 21 92 O2 Del Method FiO2 08/14/22 07:17 50 08/14/22 06:00 50 08/14/22 05:30 50 02/06/23 05:00 50 08/14/22 04:30 50 08/14/22 04:00 50 08/14/22 03:30 50 08/14/22 04:00 50 08/14/22 03:15 50 08/14/22 03:00 50 08/14/22 02:30 50 08/14/22 03:00 Mechanical Vent 08/14/22 02:00 50 08/14/22 01:30 50 08/14/22 01:00 50 08/14/22 00:30 50 08/14/22 00:00 50 08/14/22 00:00 50 08/13/22 23:30 50 08/13/22 23:00 50 08/13/22 22:48 50 08/13/22 22:30 50 08/13/22 22:00 50 08/13/22 21:30 50 08/13/22 21:00 50 08/13/22 20:30 50 08/13/22 20:00 50 08/13/22 19:30 50 08/13/22 20:00 50 08/13/22 20:00 50 08/13/22 19:59 50 Laboratory Results 08/14/22 04:17 08/14/22 04:17 Coding Level of Care Code Critical Care 1st 30-74 mins Diagnoses Cardiac arrest with ventricular fibrillation I46.9; I49.01 Anoxic encephalopathy G93.1 Cardiopulmonary arrest with successful resuscitation I46.9 Time Spent (min) 48
--- NOTE | 2022-08-14 08:40 | XRay Report ---
XR chest 1V portable HISTORY: 71 years-old Female while intubated- eval tubes and line placment acute respiratory failure COMPARISON: 08/13/2022 TECHNIQUE: AP view of the chest FINDINGS: Cardiac silhouette is enlarged. Endotracheal tube overlies the midline, 2.6 cm superior to the hillary . Enteric tube distal tip terminates within the stomach. Pulmonary vascular congestion. No pneumothor ax. Small pleural effusions with mild bibasilar opacities. Bones appear grossly intact. IMPRESSION: 1. Stable endotracheal and enteric tubes. 2. Cardiomegaly with pulmonary vascular congestion. 3. Small pleural effusions with mildly progressed bibasilar densities favoring atelectasis. ACT 112: Negative or not required by law. The above report was generated using voice recognition software. It may contain grammatical, syntax o r spelling errors. Electronically signed by: Oscar Huang M.D. 08/14/2022 8:38 AM
--- NOTE | 2022-08-14 09:27 | Palliative Care Consultation ---
Date of Consultation August 14, 2022 History of Present Illness Reason for Consultation: On 08/12/22 @ 16:27 Cindy Brown Wrote To Nettie Castro withdrawal of care Attending Physician: Cindy Brown MD History of Present Illness Jaclyn is a 71yo female s/p cardiac arrest, likely due to respiratory arrest; possibility of anoxic brain injury. Patient arrives to ICU with electrolyte derangements, lactic acidosis, respiratory/metabolic acidosis intubated and sedated. Echo with preserved EF and no RWMA. EEG with burst suppression. Still with high pressure alarms and myoclonus requiring sedation.She was also found to have pneumatosis of the bowel with air in the liver, concerning for potential ischemic bowel, but she is not distended or septic. General surgery to monitor at this point time without plans for surgical intervention unless the patient should clinically deteriorate and have improved neurological status. Allergies Allergy/AdvReac Type Severity Reaction Status Date / Time Penicillins Allergy Intermediate Rash Verified 08/11/22 22:59 codeine AdvReac Intermediate Gastrointestinal Verified 08/11/22 22:59 Upset [id number] Reductase AdvReac Intermediate body aches Verified 08/11/22 22:59 Inhibitor Home Medications Medication Instructions Recorded Confirmed Type esomeprazole magnesium 40 mg 40 mg PO DAILY 08/01/21 08/11/22 History capsule,delayed release hydrochlorothiazide 25 mg tablet 25 mg PO DAILY 08/01/21 08/11/22 History lamotrigine 150 mg tablet 150 mg PO HS 08/01/21 08/11/22 History (Lamictal) lorazepam 1 mg tablet 1 mg PO BID PRN Anxiety 08/01/21 08/11/22 History metoprolol succinate 200 mg 200 mg PO DAILY 08/01/21 08/11/22 History capsule sprinkle, ext. release 24 hr paroxetine HCl 30 mg tablet 60 mg PO QAM 08/01/21 08/11/22 History quetiapine 50 mg tablet 50 mg PO HS 08/01/21 08/11/22 History ergocalciferol (vitamin D2) 1,250 50,000 unit PO WK 08/11/22 08/11/22 History mcg (50,000 unit) capsule (Vitamin D2) olmesartan 5 mg tablet 5 mg PO HS 08/11/22 08/11/22 History simvastatin 20 mg tablet 60 mg PO HS 08/11/22 08/11/22 History Patient History Medical History Bipolar 1 disorder Constipated Fatigue HTN (hypertension) Hyperlipemia IBS (irritable bowel syndrome) Migraine Reflux esophagitis Snoring Family History Father Hypertension Stroke Cancer skin cancer Alcohol abuse Glaucoma Mother Alcohol abuse Grandmother (Maternal) Cancer Hypertension Social History Smoking Status: Unknown if ever smoked Hx Alcohol Use: Yes Alcohol type: hard liquor Alcohol Intake Frequency: 4 or More x per/Week marital status: Current Living Situation: Spouse Results & Data ([facility]) Vital Signs (Past 12 Hours) Vital Signs Temp Pulse Resp BP Pulse Ox Pulse Ox O2 Del Method 08/14/22 08:00 36.9 C 79 28 H 95 08/14/22 08:00 140/72 08/14/22 07:00 36.9 C 78 24 97 08/14/22 07:00 125/65 08/14/22 08:00 Mechanical Vent 08/14/22 08:00 08/14/22 07:17 78 25 H 97 08/14/22 06:00 37.0 C 79 20 117/61 97 Mechanical Vent 08/14/22 05:30 37.1 C 80 19 97 Mechanical Vent 08/14/22 05:00 37.2 C 81 22 124/61 96 Mechanical Vent 08/14/22 04:30 37.4 C 83 23 95 Mechanical Vent 08/14/22 04:00 37.6 C H 85 26 H 143/73 H 96 Mechanical Vent 08/14/22 03:30 37.4 C 83 26 H 96 Mechanical Vent 08/14/22 04:00 08/14/22 03:15 81 25 H 97 08/14/22 03:00 37.3 C 80 23 127/61 97 Mechanical Vent 08/14/22 02:30 37.1 C 81 25 H 96 Mechanical Vent 08/14/22 03:00 97 08/14/22 02:00 37.0 C 81 23 123/59 L 97 Mechanical Vent 08/14/22 01:30 36.9 C 80 23 97 Mechanical Vent 08/14/22 01:00 36.9 C 78 23 127/60 97 Mechanical Vent 08/14/22 00:30 37.0 C 79 22 97 Mechanical Vent 08/14/22 00:00 37.0 C 77 20 121/53 L 97 Mechanical Vent 08/14/22 00:00 08/13/22 23:30 37.0 C 76 21 98 Mechanical Vent 08/13/22 23:00 36.9 C 75 21 112/55 L 99 Mechanical Vent 08/13/22 22:48 76 21 98 08/13/22 22:30 36.9 C 75 20 98 Mechanical Vent 08/13/22 22:00 36.9 C 75 20 110/41 L 97 Mechanical Vent 08/13/22 21:30 36.8 C 76 20 97 Mechanical Vent O2 Del Method FiO2 08/14/22 08:00 08/14/22 08:00 08/14/22 07:00 08/14/22 07:00 08/14/22 08:00 50 08/14/22 08:00 50 08/14/22 07:17 50 08/14/22 06:00 50 08/14/22 05:30 50 08/14/22 05:00 50 08/14/22 04:30 50 08/14/22 04:00 50 08/14/22 03:30 50 08/14/22 04:00 50 08/14/22 03:15 50 08/14/22 03:00 50 08/14/22 02:30 50 08/14/22 03:00 Mechanical Vent 08/14/22 02:00 50 08/14/22 01:30 50 08/14/22 01:00 50 08/14/22 00:30 50 08/14/22 00:00 50 08/14/22 00:00 50 08/13/22 23:30 50 08/13/22 23:00 50 08/13/22 22:48 50 08/13/22 22:30 50 08/13/22 22:00 50 08/13/22 21:30 50 PG Care Time/CCT Total # of Minutes Spent Total Time Spent with Patient: Total time spent is greater than 50% in coordination of care (as documented) at patient's floor/unit and/or counseling patient: Coding
[2022-08-14] MEDS ORDERED: NEW Std Conc--fentaNYL 2,500mcg/250mL NSS **10mcg/mL IV SCH (09:45)
[2022-08-14] MEDS: MIDAZOLAM HCL 1 MG/ML 2ML VIAL IV PRN ×2 (09:46→15:24)
[2022-08-14] MEDS: fentaNYL citrate 100 MCG/2 ML VIAL IV PRN (09:51)
--- NOTE | 2022-08-14 09:51 | Electrocardiogram Report ---
Test Reason : Blood Pressure : / mmHG Vent. Rate : 082 BPM Atrial Rate : 082 BPM P-R Int : 258 ms QRS Dur : 082 ms QT Int : 364 ms P-R-T Axes : 074 002 125 degrees QTc Int : 425 ms Sinus rhythm with 1st degree A-V block Possible Old (cited on or before 12-AUG-2022) Poor R wave progression, consider anterior [place] vs. lead placement vs. LVH Diffuse Minor Nonspecific T wave abnormality Abnormal ECG When compared with ECG of 13-AUG-2022 04:33, No significant change Confirmed by Brenden Dejesus ([id number]) on 08/14/2022 9:51:19 AM Referred By: REFERRED SELF Confirmed By:Brenden Dejesus
[2022-08-14] MEDS: PANTOprazole 40 MG in SYRINGE 0 ML IV SCH (10:02)
--- NOTE | 2022-08-14 10:11 | Communication Note ---
Date of Service: August 14, 2022 Pall me consult received for "withdrawal of care" and chart reviewed. I contacted Dr Byrne/CCM and we have agreed that since pt is awaiting further diagnostic imaging and CCM has ongoing discussions with family, a formal Palliative med consult for "withdrawal of care" at this time is not warranted. Consult deferred/Patient not seen. No charge submitted. TS 23min in chart review and discussion with teams, coordination of care. Rosetta Forde DNP Clinical Director, Palliative Medicine
[2022-08-14] MEDS ORDERED: POTASSIUM CHLORIDE / WTR 20 MEQ/100 ML PLCT IV ONE (10:15)
[2022-08-14] MEDS: METOPROLOL TARTRATE 1 MG/ML VIAL IV PRN ×2 (11:18→14:53)
[2022-08-14] MEDS: D10 NSS IV SCH (14:09)
[2022-08-14] MEDS: fentaNYL BOLUS from BAG IV PRN (15:21)
[2022-08-14 15:24] LABS: Calcium 7.6 mg/dl (8.5-10.1); Potassium 3.8 mmol/L (3.5-5.1)
[2022-08-14 15:30] LABS: BUN Creatinine Ratio 19.2 (10-20); Creatinine Clr Calc Pharmacy 74.1 ml/min; Est GFR (African American) 89.3 ml/min
--- NOTE | 2022-08-14 15:37 | Neurology Progress Note ---
Date of Service August 14, 2022 Assessment & Plan (1) Anoxic encephalopathy: Plan: Impression: The patient had initial respiratory arrest, with following cardiac fibrillation, outside of hospital. EMS arrived in 15 minutes, with successful cardiopulmonary resuscitation. The patient was intubated in emergency department. Initial [place] Coma Scale was only 3. The patient has been having occasional myoclonus and does not show any signs of cerebral functioning at this time. Plan/recommendations: Continue on levetiracetam IV 1000 mg twice a day even though routine EEG did not show epileptogenic activity. We cannot offer continuous EEG so we cannot rule out seizures definitively. Additionally Keppra might have some neuroprotective effect based on some publications. Prognostic evaluation at third and seventh days post event. If nothing changes neurologically until 10 pm today, based on current evaluation PROGNOSTIC ESTIMATION as below: -- No recovery or vegetative state: 93% --Some neurological recovery with severe disability: 7% -- Good recovery: 0% Supportive care. Brain MRI will be helpful to assess neurological prognosis. We will reevaluate the patient tomorrow. --Family meeting was today. 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 Recommendations/plan: As above (3) Cardiac arrest with ventricular fibrillation: Plan: Impression: Initial respiratory arrest, but secondary to cardiac fibrillation/ arrest. Reportedly, the patient has been having wheezing for last few weeks. (4) Cardiopulmonary arrest with successful resuscitation: Admission and Anticipated Discharge Date Admission Date: August 12, 2022 Subjective The patient is seen today after holding sedation. Neurological evaluation does not show any improvement of the patient's neurological status. Currently, there is no evidence of cerebral functioning but there are brainstem reflexes. The patient is very unstable when sedation decreased. She breathes over ventilator. The case is discussed with the patient's and I have answered his questions in detail. He window the patient is not over 3 days status post cardiopulmonary arrest, but we offered some preliminary prognostic information to the family. Review of Systems Review of Systems: Unobtainable due to cognitive status Physical Exam Physical Exam: General Examination: Constitutional: Well developed overweight person who is intubated. HENT: Normal exam with inspection. CV: Hearth rhythm is regular. Neck: Supple, no carotid bruits. Lungs: On ventilator. Abdomen: Soft, non-tender, non-distended. Skin: No rash or ecchymosis. Extremities: No edema or cyanosis NEUROLOGICAL EXAMINATION: Mental Status: Comatose Cranial Nerves: Pupils are 3 mm, and very sluggishly reactive to light bilaterally. There is no corneal or gag reflexes. Facial symmetry is preserved. Funduscopy: Unable to assess. Motor: There is no spontaneous movements other than occasional myoclonic jerks. There is no withdrawal to deep painful stimuli. There is no obvious posturing either. Tone: Slightly decreased tone in all extremities Sensory: Unable to assess Coordination: Unable to assess Speech: Nonverbal, and does not follow verbal commands. Gait: Unable to assess DTRs: Trace in all extremities. Plantera reflexes are undifferentiated bilaterally. Musculoskeletal: Frequent facial muscles, and also less frequent bilateral upper and lower extremity myoclonic jerks are noticed. Results & Data ([facility]) Vital Signs (Past 12 Hours) Vital Signs Temp Pulse Resp BP Pulse Ox O2 Del Method FiO2 08/14/22 12:00 50 08/14/22 14:53 102 H 162/64 H 08/14/22 14:40 94 H 23 90 50 08/14/22 14:00 37.5 C 87 20 93 08/14/22 14:00 119/67 08/14/22 13:30 37.6 C H 86 20 93 08/14/22 13:00 37.7 C H 86 21 93 08/14/22 13:00 121/59 L 08/14/22 12:30 37.8 C H 86 21 93 08/14/22 12:00 37.9 C H 85 21 92 08/14/22 12:00 115/58 L 08/14/22 11:30 37.9 C H 84 23 91 08/14/22 11:01 37.7 C H 95 H 28 H 90 08/14/22 11:01 135/78 08/14/22 11:00 37.7 C H 95 H 28 H 90 08/14/22 10:30 37.6 C H 93 H 27 H 90 08/14/22 10:00 37.5 C 91 H 19 92 08/14/22 10:00 115/67 08/14/22 09:30 37.3 C 91 H 30 H 94 08/14/22 09:00 37.2 C 87 33 H 92 08/14/22 09:00 160/82 H 08/14/22 08:30 37.0 C 83 30 H 92 08/14/22 09:39 40 08/14/22 11:37 84 22 91 50 08/14/22 11:18 95 H 175/73 H 08/14/22 08:00 36.9 C 79 28 H 95 08/14/22 08:00 140/72 08/14/22 07:00 36.9 C 78 24 97 08/14/22 07:00 125/65 08/14/22 08:00 Mechanical Vent 50 08/14/22 08:00 50 08/14/22 07:17 78 25 H 97 50 08/14/22 06:00 37.0 C 79 20 117/61 97 Mechanical Vent 50 08/14/22 05:30 37.1 C 80 19 97 Mechanical Vent 50 08/14/22 05:00 37.2 C 81 22 124/61 96 Mechanical Vent 50 08/14/22 04:30 37.4 C 83 23 95 Mechanical Vent 50 08/14/22 04:00 37.6 C H 85 26 H 143/73 H 96 Mechanical Vent 50 08/14/22 04:00 50 Laboratory Results Laboratory Results - last 24 hr 08/13/22 08/13/22 08/13/22 17:56 17:57 17:58 WBC RBC Hgb Hct MCV MCH MCHC RDW Std Deviation RDW Coeff of Foster Plt Count MPV Immature Gran % (Auto) Neut % (Auto) Lymph % (Auto) Riley % (Auto) Eos % (Auto) Baso % (Auto) Neut # (Auto) Lymph # (Auto) Riley # (Auto) Eos # (Auto) Baso # (Auto) Immature Gran # (Auto) PT INR APTT PTT Ratio Sample Site POC pH POC pCO2 POC pO2 POC HCO3 POC Total CO2 POC Base Excess POC ABG O2 Sat Filippo Test O2 Delivery Device POC O2 Rate POC FiO2 Tidal Volume PEEP Sodium Potassium Chloride Carbon Dioxide Anion Gap BUN Creatinine Est Cr Clr Drug Dosing Est GFR ( Amer) Est GFR (Non-Af Amer) BUN/Creatinine Ratio Glucose POC Glucose 52 L* 78 61 L* Calcium Phosphorus Magnesium Total Bilirubin Direct Bilirubin AST ALT Alkaline Phosphatase Total Protein Albumin Triglycerides 08/13/22 08/13/22 08/13/22 18:09 20:10 20:12 WBC RBC Hgb Hct MCV MCH MCHC RDW Std Deviation RDW Coeff of Foster Plt Count MPV Immature Gran % (Auto) Neut % (Auto) Lymph % (Auto) Riley % (Auto) Eos % (Auto) Baso % (Auto) Neut # (Auto) Lymph # (Auto) Riley # (Auto) Eos # (Auto) Baso # (Auto) Immature Gran # (Auto) PT INR APTT PTT Ratio Sample Site Art Line POC pH 7.32 L POC pCO2 53 H POC pO2 71 L POC HCO3 27 H POC Total CO2 28 POC Base Excess 1.0 POC ABG O2 Sat 92.0 Filippo Test NA O2 Delivery Device Ventilator POC O2 Rate 11 POC FiO2 50 Tidal Volume 305 PEEP 5 Sodium Potassium Chloride Carbon Dioxide Anion Gap BUN Creatinine Est Cr Clr Drug Dosing Est GFR ( Amer) Est GFR (Non-Af Amer) BUN/Creatinine Ratio Glucose POC Glucose 91 100 H Calcium Phosphorus Magnesium Total Bilirubin Direct Bilirubin AST ALT Alkaline Phosphatase Total Protein Albumin Triglycerides 08/13/22 08/13/22 08/14/22 21:53 22:34 00:12 WBC RBC Hgb Hct MCV MCH MCHC RDW Std Deviation RDW Coeff of Foster Plt Count MPV Immature Gran % (Auto) Neut % (Auto) Lymph % (Auto) Riley % (Auto) Eos % (Auto) Baso % (Auto) Neut # (Auto) Lymph # (Auto) Riley # (Auto) Eos # (Auto) Baso # (Auto) Immature Gran # (Auto) PT INR APTT PTT Ratio Sample Site Art Line POC pH 7.41 POC pCO2 42 POC pO2 74 L POC HCO3 27 H POC Total CO2 28 POC Base Excess 2.0 H POC ABG O2 Sat 95.0 Filippo Test NA O2 Delivery Device Ventilator POC O2 Rate 18 POC FiO2 Tidal Volume 330 PEEP 5 Sodium Potassium Chloride Carbon Dioxide Anion Gap BUN Creatinine Est Cr Clr Drug Dosing Est GFR ( Amer) Est GFR (Non-Af Amer) BUN/Creatinine Ratio Glucose POC Glucose 124 H 122 H Calcium Phosphorus Magnesium Total Bilirubin Direct Bilirubin AST ALT Alkaline Phosphatase Total Protein Albumin Triglycerides 08/14/22 08/14/22 08/14/22 04:17 04:17 04:17 WBC 17.08 H RBC 3.52 L Hgb 10.2 L Hct 29.7 L MCV 84.4 MCH 29.0 MCHC 34.3 RDW Std Deviation 43.2 RDW Coeff of Foster 14.2 Plt Count 230 MPV 9.0 L Immature Gran % (Auto) 1.6 Neut % (Auto) 84.2 Lymph % (Auto) 6.2 Riley % (Auto) 5.6 Eos % (Auto) 2.2 Baso % (Auto) 0.2 Neut # (Auto) 14.36 H Lymph # (Auto) 1.06 L Riley # (Auto) 0.96 H Eos # (Auto) 0.38 Baso # (Auto) 0.04 Immature Gran # (Auto) 0.28 H PT 10.7 INR 1.0 APTT 30.8 PTT Ratio 1.1 Sample Site POC pH POC pCO2 POC pO2 POC HCO3 POC Total CO2 POC Base Excess POC ABG O2 Sat Filippo Test O2 Delivery Device POC O2 Rate POC FiO2 Tidal Volume PEEP Sodium 132 L Potassium 3.5 Chloride 100 Carbon Dioxide 25 Anion Gap 7 BUN 17 Creatinine 0.72 Est Cr Clr Drug Dosing 79.4 Est GFR ( Amer) 98.3 Est GFR (Non-Af Amer) 84.9 BUN/Creatinine Ratio 23.6 H Glucose 103 H POC Glucose Calcium 7.5 L Phosphorus 2.4 L Magnesium 1.8 Total Bilirubin 0.4 Direct Bilirubin 0.1 AST 35 ALT 48 Alkaline Phosphatase 82 Total Protein 5.3 L Albumin 3.0 L Triglycerides 147 08/14/22 08/14/22 08/14/22 05:39 12:19 12:20 WBC RBC Hgb Hct MCV MCH MCHC RDW Std Deviation RDW Coeff of Foster Plt Count MPV Immature Gran % (Auto) Neut % (Auto) Lymph % (Auto) Riley % (Auto) Eos % (Auto) Baso % (Auto) Neut # (Auto) Lymph # (Auto) Riley # (Auto) Eos # (Auto) Baso # (Auto) Immature Gran # (Auto) PT INR APTT PTT Ratio Sample Site POC pH POC pCO2 POC pO2 POC HCO3 POC Total CO2 POC Base Excess POC ABG O2 Sat Filippo Test O2 Delivery Device POC O2 Rate POC FiO2 Tidal Volume PEEP Sodium Potassium Chloride Carbon Dioxide Anion Gap BUN Creatinine Est Cr Clr Drug Dosing Est GFR ( Amer) Est GFR (Non-Af Amer) BUN/Creatinine Ratio Glucose POC Glucose 120 H 63 L* 72 Calcium Phosphorus Magnesium Total Bilirubin Direct Bilirubin AST ALT Alkaline Phosphatase Total Protein Albumin Triglycerides 08/14/22 08/14/22 14:21 14:21 WBC RBC Hgb Hct MCV MCH MCHC RDW Std Deviation RDW Coeff of Foster Plt Count MPV Immature Gran % (Auto) Neut % (Auto) Lymph % (Auto) Riley % (Auto) Eos % (Auto) Baso % (Auto) Neut # (Auto) Lymph # (Auto) Riley # (Auto) Eos # (Auto) Baso # (Auto) Immature Gran # (Auto) PT INR APTT PTT Ratio Sample Site POC pH POC pCO2 POC pO2 POC HCO3 POC Total CO2 POC Base Excess POC ABG O2 Sat Filippo Test O2 Delivery Device POC O2 Rate POC FiO2 Tidal Volume PEEP Sodium 134 L Potassium 3.8 Chloride 100 Carbon Dioxide 27 Anion Gap 7 BUN 15 Creatinine 0.78 Est Cr Clr Drug Dosing 74.1 Est GFR ( Amer) 89.3 Est GFR (Non-Af Amer) 77.0 BUN/Creatinine Ratio 19.2 Glucose 106 H POC Glucose Calcium 7.6 L Phosphorus 3.0 Magnesium 2.0 Total Bilirubin Direct Bilirubin AST ALT Alkaline Phosphatase Total Protein Albumin Triglycerides Diagnostic Findings Chest X-Ray 08/11/22 22:23 SINGLE VIEW CHEST CLINICAL HISTORY: Cardiac arrest. FINDINGS: An AP, portable, supine chest radiograph is obtained. No prior studies are available for comparison at the time of dictation. An endotracheal tube has been placed. The tip approaches the right mainstem bronchus. The heart is enlarged. The pulmonary vasculature is noncongested. Nonspecific interstitial thickening is likely chronic. There is mild elevation of the right hemidiaphragm. No airspace consolidation or large pleural effusion is identified. No pneumothorax is seen. The skeletal structures are osteopenic. There are acute appearing anterior rib fractures. IMPRESSION: 1. An endotracheal tube has been placed. The tip approaches the right mainstem bronchus, and this should be pulled back 1 to 2 cm. 2. Cardiomegaly with no acute cardiopulmonary abnormality identified. 2. There are acute appearing bilateral anterior rib fractures. ACT 112: Negative or not required by law. Electronically signed by: Nahum Jean M.D. 08/11/2022 10:42 PM Chest CTA 08/11/22 22:43 CT ANGIOGRAM OF THE CHEST; CT SCAN OF THE ABDOMEN AND PELVIS WITH IV CONTRAST CLINICAL HISTORY: Cardiac arrest. COMPARISON STUDY: Chest x-ray dated 08/11/2022. TECHNIQUE: Following the IV administration of 114 of Optiray 320, CT angiogram of the chest is performed from the upper abdomen to the thoracic inlet utilizing the pulmonary embolus protocol. Images are reviewed in the axial, sagittal, coronal planes. 3-D MIPS images are created and assessed. Subsequently, CT scan of the abdomen and pelvis was performed from the lung bases to the proximal femora. Images are reviewed in the axial, sagittal, and coronal planes. IV contrast was administered without complication. A dose lowering technique was utilized adhering to the principles of ALARA. The examinations are compromised by motion artifact, as well as by streak artifact from the arms which could not be elevated above the chest or abdomen. CT DOSE: 2876.72 mGy.cm FINDINGS: CHEST: Thyroid: Imaged portions of the thyroid gland are normal in size and attenuation. Thoracic aorta: There is atherosclerotic calcification of the thoracic aorta, which is normal in caliber and demonstrates standard 3-vessel arch anatomy. No dissection is seen. Pulmonary vasculature: The main pulmonary arteries appear dilated suggesting pulmonary artery hypertension. There are no filling defects identified in the main, lobar, or segmental pulmonary arteries to indicate pulmonary embolus. Heart: The heart is enlarged and without pericardial effusion. There are coronary artery calcifications. Lungs and pleural spaces: An endotracheal tube is in place. The tip terminates above the hillary. Secretions are noted in the trachea. There is trace right anterior pneumothorax seen on image #136. There are also tiny foci of extrapleural gas on the right. No left-sided pneumothorax is seen. Intralobular septal thickening suggests fluid overload/congestive failure. No pleural effusion is identified. Airspace opacities in the right upper lobe likely represent atelectasis. There is an 8 mm right middle lobe pulmonary nodule seen on axial image #152. A 4 mm left lower lobe pulmonary nodule is seen on image #160. Diffuse peribronchial thickening is observed. Mediastinum: There is no mediastinal hematoma or lymphadenopathy. Robyn: Clear. Axillae: There is no axillary lymphadenopathy. Bony thorax: The skeletal structures are osteopenic. No lytic or blastic lesions are identified. There are acute right anterior 2nd through 8th rib fractures. The 6th rib fracture is comminuted and the 7th rib fracture is mildly displaced.. There are acute left anterior 3rd through 8th rib fractures. The 6th rib fracture is displaced. No sternal fracture is seen. There is a moderate chronic-appearing superior endplate compression deformity of T12. ABDOMEN AND PELVIS: Liver: The contrast-enhanced liver is normal in size, contour, and attenuation. There is no intrahepatic biliary ductal dilatation. The hepatic veins and portal veins are patent. There is portal venous gas seen throughout the left lobe. Gallbladder: Unremarkable. Spleen: Normal in size and attenuation. Pancreas: Unremarkable. Adrenal glands: Unremarkable. Kidneys: The contrast enhanced kidneys demonstrate cortical atrophy and are without hydronephrosis. The kidneys enhance symmetrically. A 13 mm cyst is noted on the right. Abdominal vasculature: The abdominal aorta is normal in course and caliber noting moderate to advanced atherosclerotic calcification. A right femoral central venous catheter is in place. The mesenteric vessels are patent. Stomach and bowel: A small hiatal hernia is noted, with infiltration seen around the gastroesophageal junction. There is pneumatosis intestinalis of the cecum and ascending colon with adjacent mesenteric venous gas. Mild wall thickening and mucosal hyperemia is suggested involving the left colon with faint surrounding infiltration. There is also mild wall thickening and hyperemia seen throughout the small bowel loops. No bowel obstruction is seen. The appendix is well-visualized and normal. Peritoneum: No intraperitoneal free air is seen below the diaphragm. There is no abdominal ascites. There is a fat-containing umbilical hernia. Lymphadenopathy: None. Pelvic viscera: The bladder is decompressed and a Serrato catheter and not well evaluated. The uterus and adnexa are normal as imaged. There is a fat-containing left groin hernia. Skeletal structures: The skeletal structures are osteopenic. There is mild lumbosacral spondylosis. Lumbosacral spine, bony pelvis, and proximal femora appear intact. No lytic or blastic lesions are seen. Sclerotic change is noted in the pubic symphysis. IMPRESSION: 1. There is no evidence of pulmonary embolus in the main, lobar, or segmental pulmonary arteries. 2. Cardiomegaly with evidence of fluid overload/congestive change. 3. There are numerous acute bilateral anterior rib fractures as above, a few of which are comminuted and displaced. 4. There is trace right anterior pneumothorax. 5. Airspace opacities in the right upper lobe likely represent atelectasis. 6. There is evidence of a nonspecific colitis of the left colon which may be ischemic. 7. There is pneumatosis intestinalis of the cecum and ascending colon, with concomitant mesenteric venous and portal venous gas. Ischemic bowel is not excluded. 8. Mild wall thickening and mucosal hyperemia is also suggested involving small bowel loops. This may be related to hypovolemia/hypotension. 9. No intraperitoneal free air is identified. 10. There is nonspecific infiltration identified around the gastroesophageal ju nction. 11 There are at least 2 pulmonary nodules which measure up to 8 mm. These can be followed as per the Fleischner criteria. See below. 12. Additional findings as above. Please refer to below summary of Fleischner criteria recommendations for follow- up of incidental CT nodules (Alfredo Resendiz, Guidelines for management of small pulmonary nodules detected on CT scans: A statement from the Fleischner Society, Radiology 237: [phone].) SOLID NODULES Solitary nodule size: <6 mm * low risk patients: no follow-up needed * high risk patients: optional CT at 12 months Solitary nodule size: 6-8 mm * low risk patients: follow-up at 6-12 months, then consider further follow-up at 18-24 months * high risk patients: initial follow-up CT at 6-12 months and then at 18-24 mo nths if no change Solitary nodule size: >8 mm * either low or high risk patients - consider follow-up CT at 3 months, and/or CT-PET, and/or biopsy Multiple nodules size: <6 mm * low risk patients: no routine follow-up * high risk patients: optional CT at 12 months Multiple nodules size: 6-8 mm * low risk patients: follow-up at 3-6 months, then consider further follow-up at 18-24 months * high risk patients: follow-up at 3-6 months, then at 18-24 months if no change Multiple nodules size: >8 mm * low risk patients: follow-up at 3-6 months, then consider further follow-up at 18-24 months * high risk patients: follow-up at 3-6 months, then at 18-24 months if no change Note: newly detected indeterminate nodule in persons 35 years of age or older. * low risk patients: minimal or absent history of smoking and/or other known risk factors * high risk patients: history of smoking or of other known risk factors (e.g. first degree relative with lung cancer, or exposure to asbestos, radon, uranium) * if a nodule up to 8 mm is partly solid or is ground glass further follow-up is required after 24 months to exclude possible slow growing adenocarcinoma (FARZAD) SUBSOLID NODULES Solitary pure ground-glass nodule * nodule size <6 mm - no CT follow-up required * nodule size >=6 mm - follow-up CT at 6-12 months, then every 2 years until 5 years Solitary part-solid nodule * nodule size <6 mm - no CT follow-up required * nodule size >=6 mm - follow-up CT at 3-6 months. If unchanged, and solid component remains <6 mm, then annual follow-up for 5 years Multiple subsolid nodules * nodule size <6 mm - follow-up CT at 3-6 months, consider further follow-up at 2 and 4 years if stable * nodule size >=6 mm - follow-up CT at 3-6 months, subsequent management based on the most suspicious nodule(s) ACT 112: Negative or not required by law. Electronically signed by: Nahum Jean M.D. 08/12/2022 12:[address] 08/11/22 22:43 CT SCAN OF THE BRAIN WITHOUT IV CONTRAST CLINICAL HISTORY: Cardiac arrest. COMPARISON STUDY: No priors. TECHNIQUE: Unenhanced axial CT scan of the brain is performed from the vertex to the skull base. A dose lowering technique was utilized adhering to the principles of ALARA. FINDINGS: An endotracheal tube is noted on the senior network administrator tomogram. Brain parenchyma: There is age-related involutional change noting mild to moderate subcortical and periventricular microangiopathic disease. There is no hemorrhage, mass effect, or evidence of acute territorial ischemia by CT criteria. Luna-white matter differentiation is preserved. No extra-axial fluid collection is seen. Ventricles, sulci, cisterns: Prominent secondary to involutional change. Intracranial vasculature: There is atherosclerotic calcification of the cavernous carotid and vertebral arteries. Calvarium: Unremarkable. Sinuses and mastoids: There is complete opacification of the left maxillary a ntrum, left ethmoid sinuses, the frontal sinus, and the left sphenoid sinuses. Thickening and sclerosis of the left sinus stovall indicates chronicity. Mild mucosal thickening is noted in the right maxillary antrum, and there is mild mucosal thickening within the right frontal, sphenoidal, and ethmoid sinuses. The mastoid air cells are well pneumatized. Secretions fill the nasopharynx. Orbits: The bony orbits are grossly intact. There are bilateral ocular lens implants. IMPRESSION: 1. There is no hemorrhage, mass effect, or evidence of acute territorial ischemia by CT criteria. 2. Pansinus disease as above. ACT 112: Negative or not required by law. Electronically signed by: Nahum Jean M.D. 08/12/2022 12:07 AM Abdomen/Pelvis CT 08/11/22 23:11 CT ANGIOGRAM OF THE CHEST; CT SCAN OF THE ABDOMEN AND PELVIS WITH IV CONTRAST CLINICAL HISTORY: Cardiac arrest. COMPARISON STUDY: Chest x-ray dated 08/11/2022. TECHNIQUE: Following the IV administration of 114 of Optiray 320, CT angiogram of the chest is performed from the upper abdomen to the thoracic inlet utilizing the pulmonary embolus protocol. Images are reviewed in the axial, sagittal, coronal planes. 3-D MIPS images are created and assessed. Subsequently, CT scan of the abdomen and pelvis was performed from the lung bases to the proximal femora. Images are reviewed in the axial, sagittal, and coronal planes. IV contrast was administered without complication. A dose lowering technique was utilized adhering to the principles of ALARA. The examinations are compromised by motion artifact, as well as by streak artifact from the arms which could not be elevated above the chest or abdomen. CT DOSE: 2876.72 mGy.cm FINDINGS: CHEST: Thyroid: Imaged portions of the thyroid gland are normal in size and attenuation. Thoracic aorta: There is atherosclerotic calcification of the thoracic aorta, which is normal in caliber and demonstrates standard 3-vessel arch anatomy. No dissection is seen. Pulmonary vasculature: The main pulmonary arteries appear dilated suggesting pulmonary artery hypertension. There are no filling defects identified in the main, lobar, or segmental pulmonary arteries to indicate pulmonary embolus. Heart: The heart is enlarged and without pericardial effusion. There are coronary artery calcifications. Lungs and pleural spaces: An endotracheal tube is in place. The tip terminates above the hillary. Secretions are noted in the trachea. There is trace right anterior pneumothorax seen on image #136. There are also tiny foci of extra pleural gas on the right. No left-sided pneumothorax is seen. Intralobular septal thickening suggests fluid overload/congestive failure. No pleural effusion is identified. Airspace opacities in the right upper lobe likely represent atelectasis. There is an 8 mm right middle lobe pulmonary nodule seen on axial image #152. A 4 mm left lower lobe pulmonary nodule is seen on image #160. Diffuse peribronchial thickening is observed. Mediastinum: There is no mediastinal hematoma or lymphadenopathy. Robyn: Clear. Axillae: There is no axillary lymphadenopathy. Bony thorax: The skeletal structures are osteopenic. No lytic or blastic lesions are identified. There are acute right anterior 2nd through 8th rib fractures. The 6th rib fracture is comminuted and the 7th rib fracture is mildly displ aced.. There are acute left anterior 3rd through 8th rib fractures. The 6th rib fracture is displaced. No sternal fracture is seen. There is a moderate chronic- appearing superior endplate compression deformity of T12. ABDOMEN AND PELVIS: Liver: The contrast-enhanced liver is normal in size, contour, and attenuation. There is no intrahepatic biliary ductal dilatation. The hepatic veins and portal veins are patent. There is portal venous gas seen throughout the left lobe. Gallbladder: Unremarkable. Spleen: Normal in size and attenuation. Pancreas: Unremarkable. Adrenal glands: Unremarkable. Kidneys: The contrast enhanced kidneys demonstrate cortical atrophy and are without hydronephrosis. The kidneys enhance symmetrically. A 13 mm cyst is noted on the right. Abdominal vasculature: The abdominal aorta is normal in course and caliber noting moderate to advanced atherosclerotic calcification. A right femoral central venous catheter is in place. The mesenteric vessels are patent. Stomach and bowel: A small hiatal hernia is noted, with infiltration seen around the gastroesophageal junction. There is pneumatosis intestinalis of the cecum and ascending colon with adjacent mesenteric venous gas. Mild wall thickening and mucosal hyperemia is suggested involving the left colon with faint surrounding infiltration. There is also mild wall thickening and hyperemia seen throughout the small bowel loops. No bowel obstruction is seen. The appendix is well-visualized and normal. Peritoneum: No intraperitoneal free air is seen below the diaphragm. There is no abdominal ascites. There is a fat-containing umbilical hernia. Lymphadenopathy: None. Pelvic viscera: The bladder is decompressed and a Serrato catheter and not well evaluated. The uterus and adnexa are normal as imaged. There is a fat-containing left groin hernia. Skeletal structures: The skeletal structures are osteopenic. There is mild lumbosacral spondylosis. Lumbosacral spine, bony pelvis, and proximal femora appear intact. No lytic or blastic lesions are seen. Sclerotic change is noted in the pubic symphysis. IMPRESSION: 1. There is no evidence of pulmonary embolus in the main, lobar, or segmental pulmonary arteries. 2. Cardiomegaly with evidence of fluid overload/congestive change. 3. There are numerous acute bilateral anterior rib fractures as above, a few of which are comminuted and displaced. 4. There is trace right anterior pneumothorax. 5. Airspace opacities in the right upper lobe likely represent atelectasis. 6. There is evidence of a nonspecific colitis of the left colon which may be ischemic. 7. There is pneumatosis intestinalis of the cecum and ascending colon, with concomitant mesenteric venous and portal venous gas. Ischemic bowel is not excluded. 8. Mild wall thickening and mucosal hyperemia is also suggested involving small bowel loops. This may be related to hypovolemia/hypotension. 9. No intraperitoneal free air is identified. 10. There is nonspecific infiltration identified around the gastroesophageal junction. 11 There are at least 2 pulmonary nodules which measure up to 8 mm. These can be followed as per the Fleischner criteria. See below. 12. Additional findings as above. Please refer to below summary of Fleischner criteria recommendations for follow- up of incidental CT nodules (Alfredo Resendiz, Guidelines for management of small pulmonary nodules detected on CT scans: A statement from the Fleischner Society, Radiology 237: [phone].) SOLID NODULES Solitary nodule size: <6 mm * low risk patients: no follow-up needed * high risk patients: optional CT at 12 months Solitary nodule size: 6-8 mm * low risk patients: follow-up at 6-12 months, then consider further follow-up at 18-24 months * high risk patients: initial follow-up CT at 6-12 months and then at 18-24 months if no change Solitary nodule size: >8 mm * either low or high risk patients - consider follow-up CT at 3 months, and/or CT-PET, and/or biopsy Multiple nodules size: <6 mm * low risk patients: no routine follow-up * high risk patients: optional CT at 12 months Multiple nodules size: 6-8 mm * low risk patients: follow-up at 3-6 months, then consider further follow-up at 18-24 months * high risk patients: follow-up at 3-6 months, then at 18-24 months if no change Multiple nodules size: >8 mm * low risk patients: follow-up at 3-6 months, then consider further follow-up at 18-24 months * high risk patients: follow-up at 3-6 months, then at 18-24 months if no change Note: newly detected indeterminate nodule in persons 35 years of age or older. * low risk patients: minimal or absent history of smoking and/or other known risk factors * high risk patients: history of smoking or of other known risk factors (e.g. first degree relative with lung cancer, or exposure to asbestos, radon, uranium) * if a nodule up to 8 mm is partly solid or is ground glass further follow-up is required after 24 months to exclude possible slow growing adenocarcinoma (FARZAD) SUBSOLID NODULES Solitary pure ground-glass nodule * nodule size <6 mm - no CT follow-up required * nodule size >=6 mm - follow-up CT at 6-12 months, then every 2 years until 5 years Solitary part-solid nodule * nodule size <6 mm - no CT follow-up required * nodule size >=6 mm - follow-up CT at 3-6 months. If unchanged, and solid component remains <6 mm, then annual follow-up for 5 years Multiple subsolid nodules * nodule size <6 mm - follow-up CT at 3-6 months, consider further follow-up at 2 and 4 years if stable * nodule size >=6 mm - follow-up CT at 3-6 months, subsequent management based on the most suspicious nodule(s) ACT 112: Negative or not required by law. Electronically signed by: Nahum Jean M.D. 08/12/2022 12:43 AM Chest X-Ray 08/12/22 04:00 XR chest 1V portable HISTORY: 71 years-old Female while intubated- eval tubes and line placment acut e shortness of breath COMPARISON: CTA chest 08/11/2022 TECHNIQUE: AP view of the chest FINDINGS: Endotracheal tube overlies the midline, 2.4 cm superior to the hillary. Enteric tube courses into the stomach. Cardiomegaly. Mild pulmonary vascular congestion. No pneumothorax, or large pleural effusion. Degenerative changes of the shoulders and spine. IMPRESSION: 1. Endotracheal and enteric tubes as above. 2. Cardiomegaly without acute process. ACT 112: Negative or not required by law. The above report was generated using voice recognition software. It may contain grammatical, syntax or spelling errors. Electronically signed by: Oscar Huang M.D. 08/12/2022 8:02 AM Chest X-Ray 08/13/22 04:00 SINGLE VIEW CHEST CLINICAL HISTORY: Respiratory failure. FINDINGS: An AP, portable, upright chest radiograph is compared to study dated 08/12/2022 and correlated with chest CT dated 08/11/2022. Endotracheal and enteric tubes are unchanged in position. The heart is enlarged. There is prominence of the pulmonary vasculature. There are low lung volumes with dependent atelectasis. Suspect trace pleural effusions. No pneumothorax is seen. The skel etal structures are osteopenic. Bilateral rib fractures were better seen on the recent CT scan. IMPRESSION: 1. Cardiomegaly with prominence of the pulmonary vasculature. Correlate clinically for evidence of fluid overload/congestive change. 2. Stable lines and tubes. 3. Suspect small pleural effusions. ACT 112: Negative or not required by law. Electronically signed by: Nahum Jean M.D. 08/13/2022 7:[address] 08/13/22 07:00 CT SCAN OF THE BRAIN WITHOUT IV CONTRAST CLINICAL HISTORY: Cardiac arrest. Hypoxic brain injury. COMPARISON STUDY: CT of the brain dated 08/11/2022. TECHNIQUE: Unenhanced axial CT scan of the brain is performed from the vertex to the skull base. A dose lowering technique was utilized adhering to the principles of ALARA. The examination is compromised by motion artifact. The patient was scanned twice in an effort to improve image quality. FINDINGS: An endotracheal tube is noted on the senior network administrator tomogram. Brain parenchyma: There is age-related involutional change noting mild to moderate subcortical and periventricular microangiopathic disease. There is no hemorrhage, mass effect, or evidence of acute territorial ischemia by CT criteria. Luna-white matter differentiation is preserved. No extra-axial fluid collection is seen. Ventricles, sulci, cisterns: Prominent secondary to involutional change. Intracranial vasculature: There is atherosclerotic calcification of the cavernous carotid and vertebral arteries. Calvarium: Unremarkable. Sinuses and mastoids: There is complete opacification of the left maxillary antrum, left ethmoid sinuses, the frontal sinus, and the left sphenoid sinuses. Thickening and sclerosis of the left sinus stovall indicates chronicity. Mild mucosal thickening is noted in the right maxillary antrum, and there is mild mucosal thickening within the right frontal, sphenoidal, and ethmoid sinuses. The mastoid air cells are well pneumatized. Secretions fill the nasopharynx. Orbits: The bony orbits are grossly intact. There are bilateral ocular lens implants. IMPRESSION: 1. There is no hemorrhage, mass effect, or evidence of acute territorial ischemia by CT criteria noting a significantly motion compromised examination. 2. Pansinus disease as above. ACT 112: Negative or not required by law. Electronically signed by: Nahum Jean M.D. 08/13/2022 8:01 AM Chest X-Ray 08/14/22 04:00 XR chest 1V portable HISTORY: 71 years-old Female while intubated- eval tubes and line placment acute respiratory failure COMPARISON: 08/13/2022 TECHNIQUE: AP view of the chest FINDINGS: Cardiac silhouette is enlarged. Endotracheal tube overlies the midline, 2.6 cm superior to the hillary. Enteric tube distal tip terminates within the stomach. Pulmonary vascular congestion. No pneumothorax. Small pleural effusions with mild bibasilar opacities. Bones appear grossly intact. IMPRESSION: 1. Stable endotracheal and enteric tubes. 2. Cardiomegaly with pulmonary vascular congestion. 3. Small pleural effusions with mildly progressed bibasilar densities favoring atelectasis. ACT 112: Negative or not required by law. The above report was generated using voice recognition software. It may contain grammatical, syntax or spelling errors. Electronically signed by: Oscar Huang M.D. 08/14/2022 8:38 AM EEG--This is an abnormal EEG, recorded in comatose state. Myoclonic activity was suppressed with paralytics, and we have not recorded any epileptogenic activity. Based on this finding, myoclonic activity is considered to be nonepileptic as seen in anoxic encephalopathy. Tactile stimuli induced reactivity, which is a favorable sign for prognosis. However, suppression and burst pattern is considered to be unfavorable sign after anoxic brain injury, which suggests severe, diffuse, cerebral dysfunction.
[2022-08-14] MEDS ORDERED: MAGNESIUM SULFATE / D5W 1 GM/100 ML BAG IV ONE (15:42)
[2022-08-14] MEDS: POTASSIUM CHLORIDE / WTR 20 MEQ/100 ML PLCT IV SCH ×2 (15:46→19:28)
--- NOTE | 2022-08-14 16:07 | Hospitalist Progress Note ---
Date of Service August 14, 2022 Assessment & Plan (1) Cardiopulmonary arrest with successful resuscitation: Plan: Patient suffered Out of hospital cardiac arrest, following likely respiratory failure Successfully resuscitated, achieved ROSC Intubated , sedated and ventilated in the ICU Head CT did not show any acute pathology a high possibility of anoxic brain injury Board Design Engineer, cardiology neurology on board, appreciate recs EEG suggests anoxic brain injury the likely source of her myoclonus and not epileptics seizure In terms of prognostication, the picture will become clearer about 72 hrs from the initial assessment. Currently no indication of neurological recovery In the meantime, continue Continue Keppra under the direction of neurology. Continue Intubation and sedation. Per indirect sales representative, propofol may be turned off in the next 24 hrs, although patient continues to require propofol to keep her sedated and avoid high pressuring vent alarms. Patient may need MRI scan which may require paralytics but would leave that decision to neurology. Prognosis looks poor (2) Ischemic bowel syndrome: Plan: Initially thought to have had ischemic bowel on CT However, patient has had multiple bowel movements without blood GI on board, no indication for any procedure for now (3) Respiratory failure requiring intubation: Plan: currently intubated, sedated and ventilated Appreciate indirect sales representative (4) Nocturnal hypoxemia: (5) Moderate obstructive sleep apnea: (6) Bipolar 1 disorder: (7) HTN (hypertension): (8) Hyperlipemia: (9) Shock: Plan Poor prognosis, withdrawal of care may be an option if no improvement in neurological state Admission and Anticipated Discharge Date Admission Date: August 12, 2022 Subjective patient seen and examined, intubated, sedated and ventilated Review of Systems Review of Systems: unable to obtain Physical Exam Physical Exam: The patient is intubated, sedated and ventilated HEENT--PERRL, EOMI, mucous membranes and oropharynx mildly dry Neck- No JVD. No bruits. Thyroid normal, trachea midline, no adenopathy. Heart--normal S1 and S2. No murmurs, rubs or gallops. Lungs--clear bilaterally, no respiratory distress, no accessory muscle use. Abdomen--normal bowel sounds and soft. Extremities--no cyanosis or clubbing. No edema. Dermatologic--normal skin turgor, normal color, no abnormal lymph nodes, no rash. Neurologic--intubated Rheumatologic--unable to fully assess Psychiatric--intubated Results & Data Results & Data ([facility]) Vital Signs (Past 12 Hours) Vital Signs Temp Pulse Resp BP Pulse Ox O2 Del Method FiO2 08/14/22 12:00 50 08/14/22 14:53 102 H 162/64 H 08/14/22 14:40 94 H 23 90 50 08/14/22 14:00 99.5 F 87 20 93 08/14/22 14:00 119/67 08/14/22 13:30 99.7 F H 86 20 93 08/14/22 13:00 99.9 F H 86 21 93 08/14/22 13:00 121/59 L 08/14/22 12:30 100.0 F H 86 21 93 08/14/22 12:00 100.2 F H 85 21 92 08/14/22 12:00 115/58 L 08/14/22 11:30 100.2 F H 84 23 91 08/14/22 11:01 99.9 F H 95 H 28 H 90 08/14/22 11:01 135/78 08/14/22 11:00 99.9 F H 95 H 28 H 90 08/14/22 10:30 99.7 F H 93 H 27 H 90 08/14/22 10:00 99.5 F 91 H 19 92 08/14/22 10:00 115/67 08/14/22 09:30 99.1 F 91 H 30 H 94 08/14/22 09:00 99.0 F 87 33 H 92 08/14/22 09:00 160/82 H 08/14/22 08:30 98.6 F 83 30 H 92 08/14/22 09:39 40 08/14/22 11:37 84 22 91 50 08/14/22 11:18 95 H 175/73 H 08/14/22 08:00 98.4 F 79 28 H 95 08/14/22 08:00 140/72 08/14/22 07:00 98.4 F 78 24 97 08/14/22 07:00 125/65 08/14/22 08:00 Mechanical Vent 50 08/14/22 08:00 50 08/14/22 07:17 78 25 H 97 50 08/14/22 06:00 98.6 F 79 20 117/61 97 Mechanical Vent 50 08/14/22 05:30 98.8 F 80 19 97 Mechanical Vent 50 08/14/22 05:00 99.0 F 81 22 124/61 96 Mechanical Vent 50 08/14/22 04:30 99.3 F 83 23 95 Mechanical Vent 50 PG Care Time/CCT Total # of Minutes Spent Total Time Spent with Patient: Total time spent is greater than 50% in coordination of care (as documented) at patient's floor/unit and/or counseling patient: Coding Level of Care Code 31215 SUB INP/OBS CARE 2/35MIN Diagnoses Cardiopulmonary arrest with successful resuscitation I46.9 Ischemic bowel syndrome K55.9 Respiratory failure requiring intubation J96.90 Nocturnal hypoxemia G47.34 Moderate obstructive sleep apnea G47.33 Bipolar 1 disorder F31.9 HTN (hypertension) I10 Hyperlipemia E78.5 Shock R57.9 Time Spent (min) 35
[2022-08-14] MEDS ORDERED: ROCURONIUM BROMIDE 10 MG/ML 5 ML VIAL IV STA (16:08)
[2022-08-14] MEDS ORDERED: GADOBUTROL 65ML VIAL IV ONE (19:17)
[2022-08-15] MEDS: fentaNYL BOLUS from BAG IV PRN (00:02)
[2022-08-15] MEDS: INSULIN ASPART PER UNIT SC SCH ×2 (00:02→05:23)
[2022-08-15] MEDS: propofoL 1,000 MG/100 ML VIAL IV SCH ×4 (03:39→10:32)
[2022-08-15] MEDS: levETIRAcetam 1,000 MG in 0.9 % SODIUM CHLORIDE 100 ML IV SCH (03:42)
[2022-08-15] MEDS: HEPARIN SOD 5,000 UNIT/0.5 ML VIAL SQ SCH (05:13)
[2022-08-15] MEDS ORDERED: SODIUM CHLORIDE 0.9% 1000ML 250 ML IV ONE (05:22)
[2022-08-15 05:56] LABS: iSTAT Art Bld Gas pCO2 Correct 40 mmHg (35-46); iSTAT Art Bld Gas pH Corrected 7.352 (7.35-7.45); iSTAT Arterial Blood Gas HCO3 22 meg/L (19-24); iSTAT Arterial Blood Gas pCO2 39 mmHg (35-46); iSTAT Arterial Blood Gas pH 7.36 (7.35-7.45); iSTAT Arterial Blood Gas pO2 79 mmHg (80-95); iSTAT Arterial Blood Gas pO2 C 81; iSTAT Carbon Dioxide 23 mmol/L (24-31); iSTAT Hematocrit 30 % (37-47); iSTAT Hemoglobin 10.2 g/dl (12.0-16.0); iSTAT Site Art Line; iSTAT Sodium 133 mmol/L (135-144)
[2022-08-15 06:24] LABS: Hematocrit (blood only) 31.7 % (37.0-47.0); Hemoglobin 10.4 g/dl (12.0-16.0); Mean Corpuscular Hemoglobin 28.6 pg (25.0-34.0); Mean Corpuscular Hgb Conc 32.8 g/dL (32.0-36.0); Mean Corpuscular Volume 87.1 fL (80.0-100.0); Mean Platelet Volume 9.2 fL (9.4-12.4); Platelet Count 313 K/uL (130-400); RDW Coefficient of Variation 14.6 % (11.5-14.5); RDW Standard Deviation 47.1 fL (36.4-46.3); Red Blood Count 3.64 M/uL (4.20-5.40); White Blood Count 18.52 K/ul (4.8-10.8)
[2022-08-15 06:35] LABS: BUN Creatinine Ratio 19.3 (10-20); Creatinine Clr Calc Pharmacy 48.5 ml/min; Est GFR (African American) 53.6 ml/min; Est GFR (Non-African American) 46.2 ml/min; Magnesium 2.3 mg/dl (1.7-2.4); Phosphorus 4.9 mg/dl (2.5-4.9); Potassium 4.2 mmol/L (3.5-5.1)
[2022-08-15] MEDS: ICU ELECTROLYTE REPLACEMENT PROTOCOL SCH (06:45)
--- NOTE | 2022-08-15 07:03 | Critical Care Progress Note ---
Date of Service August 15, 2022 Assessment & Plan (1) Cardiac arrest with ventricular fibrillation: (2) Anoxic encephalopathy: (3) Cardiopulmonary arrest with successful resuscitation: Plan Reason Critically Ill: Patient s/p cardiac arrest that appears to have been p recipitated by respiratory arrest. Patient arrives to ICU with electrolyte derangements, lactic acidosis, respiratory/metabolic acidosis intubated and sedated. Arrival to ICU at 0240. Continue supportive care, follow neurological prognostication, and organ dysfunction. 24 hour events: remains intubated in ICU. Neurology and cardiology consults done. Echo with preserved EF and no RWMA. EEG with burst suppression. Still with high pressure alarms and myoclonus requiring sedation. Recommendations: Neuro:- status post cardiac arrest with possibility of anoxic brain injury EEG did not demonstrate nonconvulsive status and follow-up CT 08/13/2022 showed no significant intracranial abnormality. Continue Keppra under the direction of neurology Cardiac -now off pressors. Suspect that her cardiac arrest may have been precipitated by respiratory failure. CT of the chest negative for PE or acute pulmonary disease. If the patinet improves neurologically, may require cardiac catheterization and additional evaluation. Appreciate cardiology assistance. MRI brain 08/14/22 shows likelihood of anoxic brain injury. Overall prognosis of the patient is very guarded. Respiratory - -- VDRF Likely secondary to cardiac arrest leading to hypoxemic and hypercarbic respiratory failure Continue with ventilatory support History of sleep disordered breathing. Continues with high pressure alarms. If respiratory drive intact, may consider PSV. GI - -- Pneumatosis of the bowel with air in the liver Concerning for potential ischemic bowel. She is not distended and not septic currently. General surgery to monitor at this point time without plans for surgical intervention unless the patient should clinically deteriorate and have improved neurological status. Continue empiric antibiotics. RENAL/LYTES - Continue ICU electrolyte replacement protocol. -no current issues ENDO - Continue with ICU hyperglycemia protocol HEME - Monitor H&H ID - day #3 empiric ertapenem discontinued 08/15/22, doxycycline discontinued 08/13/22 Cultures negative to date. --Prophylaxis VTE: Heparin GI: Pantoprazole Lines: Right femoral catheter, arterial line, Serrato, ETT Diet: N.p.o. Plan: In/out: +165, urine output 2175, total +6 L since coming to the hospital DC antibiotics MRI of the brain is inclining towards anoxic brain injury Prognosis very poor. I did speak with the family briefly yesterday giving the current status and prognosis They were inclining more towards palliative measures awaiting the MRI of the brain report. I will speak with the family again today to decide goals of care in the next office. I have personally spent 37 minutes of critical care time in the direct management of this patient. This is a life/limb threatening event. This includes time spent evaluating patient, direct bedside care, chart review, placing orders, interpretation of diagnostic studies, discussion with consultants, patient, and family members, as well as other required patient management activities. This time is exclusive of all separately billable procedures, and teaching time and separate from and in addition to any other critical care service time. Please note the above document was generated using voice recognition software. It may contain grammatical, syntax or spelling errors. Admission and Anticipated Discharge Date Admission Date: August 12, 2022 Subjective Patient seen and examined at bedside. No acute distress Patient did have an MRI done last night. She has been spiking low-grade fevers. She she still bucking the vent a lot especially when she is not sedated. Was on low-dose Levophed 0.02, propofol 50, fentanyl 75 the time of examination Review of Systems Review of Systems: Unobtainable due to endotracheal tube and Unobtainable due to reduced consciousness Physical Exam Physical Exam: Constitutional: No acute distress HEENT: PERRLA, positive ETT Respiratory system: Decreased air entry bilaterally,No wheeze, no rhonchi, positive crackles bilateral lower lobe CVS: S1-S2 positive, no murmurs or gallops Abdomen: Soft, nontender, nondistended, positive bowel sounds x4, obese Extremities: +2 pulses bilaterally radialis/ dorsalis pedis, no cyanosis, no edema Neuro: Sedated, breathing with the vent, positive pupillary Psych: Unable to assess G/U: Positive Serrato Skin: no rashes, warm and dry Lymphatic: no cervical or axillary lymphadenopathy Results & Data Results & Data ([facility]) Vital Signs (Past 12 Hours) Vital Signs Temp Pulse Resp BP Pulse Ox Pulse Ox O2 Del Method 08/15/22 06:30 37.1 C 93 H 22 96 Mechanical Vent 08/15/22 06:00 37.1 C 98 H 22 95/52 L 96 Mechanical Vent 08/15/22 05:30 37.4 C 100 H 22 96 Mechanical Vent 08/15/22 05:00 37.5 C 103 H 22 104/53 L 96 Mechanical Vent 08/15/22 04:30 37.7 C H 107 H 22 94 Mechanical Vent 08/15/22 03:00 95 08/15/22 04:00 37.7 C H 105 H 22 123/65 94 Mechanical Vent 08/15/22 03:30 37.8 C H 97 H 22 98 Mechanical Vent 08/15/22 03:00 37.8 C H 97 H 22 116/58 L 95 Mechanical Vent 08/15/22 02:30 37.8 C H 97 H 22 94 Mechanical Vent 08/15/22 04:00 08/15/22 03:43 96 H 26 H 96 08/14/22 23:50 92 H 22 94 08/15/22 02:00 37.7 C H 95 H 22 107/63 94 Mechanical Vent 08/15/22 01:30 37.7 C H 90 22 94 Mechanical Vent 08/15/22 01:00 37.7 C H 98 H 22 95/56 L 94 Mechanical Vent 08/15/22 00:30 37.6 C H 99 H 22 100/51 L 95 Mechanical Vent 08/15/22 00:00 37.5 C 96 H 22 111/73 95 Mechanical Vent 08/14/22 23:30 37.4 C 95 H 22 94 Mechanical Vent 08/15/22 00:00 08/14/22 23:00 37.4 C 96 H 19 110/64 95 Mechanical Vent 08/14/22 22:30 37.3 C 94 H 20 95 Mechanical Vent 08/14/22 22:00 37.3 C 93 H 18 105/61 96 Mechanical Vent 08/14/22 21:30 37.3 C 94 H 21 93 Mechanical Vent 08/14/22 19:40 90 22 94 08/14/22 21:00 37.4 C 94 H 19 91/61 L 94 Mechanical Vent 08/14/22 20:30 37.6 C H 95 H 22 94 Mechanical Vent 08/14/22 20:00 37.8 C H 100 H 19 135/65 94 Mechanical Vent 08/14/22 19:30 37.7 C H 96 H 21 169/79 H 93 Mechanical Vent 08/14/22 20:00 Mechanical Vent 08/14/22 20:00 O2 Del Method FiO2 08/15/22 06:30 55 08/15/22 06:00 55 08/15/22 05:30 55 08/15/22 05:00 55 08/15/22 04:30 55 08/15/22 03:00 Mechanical Vent 08/15/22 04:00 55 08/15/22 03:30 55 08/15/22 03:00 55 08/15/22 02:30 55 08/15/22 04:00 55 08/15/22 03:43 55 08/14/22 23:50 50 08/15/22 02:00 55 08/15/22 01:30 55 08/15/22 01:00 50 08/15/22 00:30 50 08/15/22 00:00 50 08/14/22 23:30 70 08/15/22 00:00 50 08/14/22 23:00 70 08/14/22 22:30 70 08/14/22 22:00 70 08/14/22 21:30 70 08/14/22 19:40 80 08/14/22 21:00 70 08/14/22 20:30 70 08/14/22 20:00 70 08/14/22 19:30 80 08/14/22 20:00 70 08/14/22 20:00 70 Laboratory Results 08/15/22 05:19 08/15/22 05:18 Coding Level of Care Code Critical Care 1st 30-74 mins Diagnoses Cardiac arrest with ventricular fibrillation I46.9; I49.01 Anoxic encephalopathy G93.1 Cardiopulmonary arrest with successful resuscitation I46.9 Time Spent (min) 37
--- NOTE | 2022-08-15 09:49 | Magnetic Resonance Report ---
MRI OF THE BRAIN WITHOUT AND WITH IV CONTRAST CLINICAL HISTORY: Anoxic injury. COMPARISON STUDY: Head CT August 11, 2022 and August 13, 2022. TECHNIQUE: Utilizing a 1.5 Kati magnet and dedicated coil, multiplanar, multiecho imaging of the br ain was performed pre and postcontrast administration. IV administration of 9.5 mL of Gadavist contr ast was uneventful. FINDINGS: Note is made of increased signal intensity within the bilateral precentral gyri with dimini shed signal intensity on the ADC map. There is no mass effect. No acute intracranial hemorrhage, midl ine shift or mass effect is present. Basal cisterns are patent. There are nodular axial collections. White matter T2 hyperintense foci favor small vessel disease. There is no intracranial mass or pathol ogic enhancement. Calvarial signal is within normal limits. There are secretions within the nasal cav ity and nasopharynx, likely related to intubation. The left maxillary sinus is opacified. Small amoun t of fluid within the bilateral mastoid air cells is also likely related to intubation. IMPRESSION: 1. Restricted diffusion within the bilateral precentral gyri. Although this could be artifactual, the findings can be seen in the setting of an anoxic brain injury. No mass effect. No acute intracranial hemorrhage. 2. No intracranial mass or pathologic enhancement. ACT 112: Negative or not required by law. Electronically signed by: Marty Monique M.D. 08/15/2022 9:48 AM
--- NOTE | 2022-08-15 09:55 | XRay Report ---
XR chest 1V portable CLINICAL HISTORY: while intubated- eval tubes and line placement COMPARISON STUDY: Chest CT August 11, 2022. Chest radiograph August 14, 2022. FINDINGS: Tip of endotracheal tube is 2.3 cm above the hillary. Tip of nasogastric tube is at least wi thin the distal body of the stomach. Low lung volumes are again noted. Cardiomegaly is unchanged. The re are possible small bilateral pleural effusions with bibasilar opacities. There is no pneumothorax. No evidence for pulmonary edema. Bilateral rib fractures are better depicted on prior chest CT. IMPRESSION: 1. Tip of endotracheal tube 2.3 cm above the hillary. 2. Persistent bibasilar opacities with suspected small bilateral pleural effusions. No pneumothorax. ACT 112: Negative or not required by law. Electronically signed by: Marty Monique M.D. 08/15/2022 9:54 AM
[2022-08-15] MEDS: PANTOprazole 40 MG in SYRINGE 0 ML IV SCH (10:33)
[2022-08-15] MEDS: D10 NSS IV SCH (10:33)
[2022-08-15] MEDS ORDERED: ONDANSETRON INJ 2 MG/ML 2 ML VIAL IV PRN (13:03)
[2022-08-15] MEDS ORDERED: LORazepam 2 MG/1 ML VIAL IV PRN (13:03)
[2022-08-15] MEDS ORDERED: ONDANSETRON 4 MG OD TAB SL PRN (13:03)
[2022-08-15] MEDS ORDERED: LORazepam 0.5 MG TAB PO PRN (13:03)
[2022-08-15] MEDS ORDERED: MoRPHine BOLUS from BAG IV PRN (13:03)
[2022-08-15] MEDS ORDERED: MoRPHine SULF/NSS 250 MG/250 ML BTL IV SCH (13:15)
--- NOTE | 2022-08-15 15:07 | Death Pronouncement Note ---
Date of Service August 15, 2022 Pronouncement Note Admission Date Admission Date: August 12, 2022 Date and Time of Date of : 08/15/22 Time of : 14:45 Contributing Factors (1) Cardiac arrest with ventricular fibrillation: (2) Anoxic encephalopathy: (3) Cardiopulmonary arrest with successful resuscitation: Hospital Course Hospital Course: The patient is a 71-year-old female with past medical history including LEATHA, IBS, bipolar 1 disorder, hypertension, GERD, and hypercholesterolemia. While at home, she developed severe shortness of breath, which was observed by her , who initially thought it was a panic attack but then called 911. When EMS arrived, the patient was unresponsive and had no pulse, and CPR was started. She received epinephrine 3 times, was found to be in V. fib arrest, was successfully electrocardioverted, and then given 150 mg of amiodarone IV. An LMA was placed, and then the patient was intubated upon arrival to the emergency department. Computer Customer Support Specialist, cardiology and neurology al involved in her care. EEG x2 and MRI brain suggest anoxic brain Injury. Family was also carried along the discussions regaarding the prognosis. Patient was terminally extubated, and she was pronounced on 08/15/22, 14:45 Summary Additional details: The patient is a 71-year-old female with past medical history including LEATHA, IBS, bipolar 1 disorder, hypertension, GERD, and hypercholesterolemia. While at home, she developed severe shortness of breath, which was observed by her , who initially thought it was a panic attack but then called 911. When EMS arrived, the patient was unresponsive and had no pulse, and CPR was started. She received epinephrine 3 times, was found to be in V. fib arrest, was successfully electrocardioverted, and then given 150 mg of amiodarone IV. An LMA was placed, and then the patient was intubated upon arrival to the emergency department. Computer Customer Support Specialist, cardiology and neurology al involved in her care. EEG x2 and MRI brain suggest anoxic brain Injury. Family was also carried along the discussions regaarding the prognosis. Patient was terminally extubated, and she was pronounced on 08/15/22, 14:45 Additional Data Attending physician: Cindy Brown MD Coding Level of Care Code None Diagnoses Cardiac arrest with ventricular fibrillation I46.9; I49.01 Anoxic encephalopathy G93.1 Cardiopulmonary arrest with successful resuscitation I46.9 Time Spent (min) 25
--- NOTE | 2022-08-15 15:14 | Discharge Summary ---
Date of Service August 15, 2022 Admission HPI Per Admitting Provider The patient is a 71-year-old female with past medical history including LEATHA, IBS, bipolar 1 disorder, hypertension, GERD, and hypercholesterolemia. While at home, she developed severe shortness of breath, which was observed by her , who initially thought it was a panic attack but then called 911. When EMS arrived, the patient was unresponsive and had no pulse, and CPR was started. She received epinephrine 3 times, was found to be in V. fib arrest, was successfully electrocardioverted, and then given 150 mg of amiodarone IV. An LMA was placed, and then the patient was intubated upon arrival to the emergency department. In the emergency department, the patient received 2 L of normal saline bolus, K riders, magnesium sulfate IV, sodium bicarb and IV pushes x2, was placed on propofol for sedation and Levophed for pressure maintenance. Patient had orders for chest x-ray, CT of head, chest, abdomen and pelvis and was planned to be admitted to the ICU for further treatment Principal Diagnosis respiratory failure Discharge Exam The patient is intubated, sedated and ventilated HEENT--PERRL, EOMI, mucous membranes and oropharynx mildly dry Neck- No JVD. No bruits. Thyroid normal, trachea midline, no adenopathy. Heart--normal S1 and S2. No murmurs, rubs or gallops. Lungs--clear bilaterally, no respiratory distress, no accessory muscle use. Abdomen--normal bowel sounds and soft. Extremities--no cyanosis or clubbing. No edema. Dermatologic--normal skin turgor, normal color, no abnormal lymph nodes, no rash. Neurologic--intubated Rheumatologic--unable to fully assess Psychiatric--intubated Discharge Data Allergies Allergy/AdvReac Type Severity Reaction Status Date / Time Penicillins Allergy Intermediate Rash Verified 08/11/22 22:59 codeine AdvReac Intermediate Gastrointestinal Verified 08/11/22 22:59 Upset Kbueria-[id number]-GpA Reductase AdvReac Intermediate body aches Verified 08/11/22 22:59 Inhibitor Consultations 08/11/22 22:35 Consult Dental Service Chief Stat 08/12/22 00:25 ED Decision to Admit Stat 08/12/22 03:41 Consult General Surgery Routine Consult Dental Service Chief Routine 08/12/22 05:31 Consult Neurology Routine 08/12/22 07:14 Consult Cardiology Routine 08/15/22 13:04 Consult Palliative Care Routine Ordered Studies 08/11/22 22:43 CT for pulmonary embolism PE [CT angio chest PE protocol] Stat CT head/brain wo con Stat 08/11/22 23:11 CT abd pelvis IV con only Stat 08/13/22 07:00 CT head/brain wo con Urgent 08/14/22 16:08 MRI Brain [MR brain wo/w con] Routine Hospital Course (1) Cardiac arrest with ventricular fibrillation: (2) Anoxic encephalopathy: (3) Cardiopulmonary arrest with successful resuscitation: Patient suffered Out of hospital cardiac arrest, following likely respiratory failure Successfully resuscitated, achieved ROSC Intubated , sedated and ventilated in the ICU Head CT did not show any acute pathology a high possibility of anoxic brain injury Dental Service Chief, cardiology neurology on board, appreciate recs EEG suggests anoxic brain injury the likely source of her myoclonus and not epileptics seizure In terms of prognostication, the picture will become clearer about 72 hrs from the initial assessment. Currently no indication of neurological recovery In the meantime, continue Continue Keppra under the direction of neurology. Continue Intubation and sedation. Per marina sales and service supervisor, propofol may be turned off in the next 24 hrs, although patient continues to require propofol to keep her sedated and avoid high pressuring vent alarms. Patient may need MRI scan which may require paralytics but would leave that decision to neurology. Prognosis looks poor Patient was terminally extubated, was pronounced around 14:45 today Plan Poor prognosis, withdrawal of care may be an option if no improvement in geovany rological state Total Time Total Time Spent Total Time Spent (In Minutes): 25 Discharge Plan Discharge Items Patient Disposition: Reason For Visit: CARDIAC ARREST Follow-up/Referrals: Evelyn He CRNP [Primary Care Provider] - Medications and DC Order Prescriptions: No Action esomeprazole magnesium 40 mg capsule,delayed release(DR/EC) 40 mg PO DAILY hydrochlorothiazide 25 mg tablet 25 mg PO DAILY lamotrigine [Lamictal] 150 mg tablet 150 mg PO HS lorazepam 1 mg tablet 1 mg PO BID PRN (Reason: Anxiety) metoprolol succinate 200 mg capsule,sprinkle,ER 24hr 200 mg PO DAILY paroxetine HCl 30 mg tablet 60 mg PO QAM quetiapine 50 mg tablet 50 mg PO HS simvastatin 20 mg tablet 60 mg PO HS ergocalciferol (vitamin D2) [Vitamin D2] 1,250 mcg (50,000 unit) capsule 50,000 unit PO WK olmesartan 5 mg tablet 5 mg PO HS Admission Data Admit Date/Time: 08/12/22 00:41 Attending Provider: Cindy Brown Admit Provider: Matthieu Oconnor Primary Care Provider: Evelyn He Other Providers: cB Salazar ; Matthieu Oconnor ; Abilio Nevarez ; Reuben More ; Max Berrios ; Nettie Castro Coding Level of Care Code None Diagnoses Cardiac arrest with ventricular fibrillation I46.9; I49.01 Anoxic encephalopathy G93.1 Cardiopulmonary arrest with successful resuscitation I46.9 Time Spent (min) 25
== END 2022-08-15 14:45 | disposition expired | DRG 308 ==
LOC: ED 22:16 → 1E 08-12 00:41 → SUATTDRO 08-12 00:41 → 1E 08-12 02:47